=== PATIENT | female | born 1955 | race Caucasian/White ===

== ENCOUNTER → 2017-04-25 | Outpatient (CLI) | payer BC ==
[~2017-04-25] MED LIST: B-CO1CAP3 PO; CHOL400T; MAGN400T6 PO; MISCCAP80 PO; OMEG10007 PO
--- NOTE | 2017-04-26 15:11 | MAMMOGRAPHY REPORT ---
BILATERAL DIGITAL SCREENING MAMMOGRAM TOMOSYNTHESIS WITH CAD: 04/25/2017 CLINICAL HISTORY: Routine screening. Patient has no complaints. TECHNIQUE: Bilateral breast tomosynthesis in addition to standard 2D mammography was performed. Curre nt study was also evaluated with a Computer Aided Detection (CAD) system. COMPARISON: Comparison is made to exams dated: 03/30/2016 mammogram, 03/12/2015 mammogram, 03/04/2015 m ammogram, 03/01/2014 mammogram, 02/26/2013 mammogram, and 04/23/2010 mammogram - [facility] nter. BREAST COMPOSITION: The tissue of both breasts is extremely dense, which lowers the sensitivity of m ammography. FINDINGS: There is a possible area of architectural distortion in the 12:00 middle to posterior left breast, for which additional spot compression tomosynthesis views and possibly ultrasound are recomm ended. There are scattered benign rim calcifications bilaterally. No other suspicious mass, architectural di stortion or cluster of microcalcifications is seen. IMPRESSION: ACR BI-RADS CATEGORY 0: INCOMPLETE EVALUATION: NEED ADDITIONAL IMAGING EVALUATION The possible area of architectural distortion in the 12:00 left breast needs additional evaluation. The patient will be called to schedule an appointment. Approximately 10% of breast cancers are not detected with mammography. A negative mammographic report should not delay biopsy if a clinically suggestive mass is present. Maria Luisa Zamudio M.D. ay/:04/25/2017 15:53:19 Gear Shaper: Whitley BALDERRAMA(R)(Valeria)(BD), [facility] letter sent: Addl Imaging 0 BI-RADS Code: ACR BI-RADS Category 0: Incomplete Evaluation: Need Additional Imaging Evaluation
== END | disposition home or self-care (01) ==
LOC: C.MAMM 09:07
PROVIDERS: ATTEND Family Medicine
DX: Z12.31 Encounter for screening mammogram for malignant neoplasm of breast (principal); R92.8 Other abnormal and inconclusive findings on diagnostic imaging of breast

== ENCOUNTER → 2017-04-27 | Outpatient (CLI) | payer BC ==
--- NOTE | 2017-04-27 17:16 | MAMMOGRAPHY REPORT ---
UNILATERAL LEFT DIGITAL DIAGNOSTIC MAMMOGRAM TOMOSYNTHESIS AND TARGETED LEFT ULTRASOUND: 04/27/2017 CLINICAL HISTORY: Callback from screening mammogram for possible architectural distortion in the left breast. TECHNIQUE: Breast tomosynthesis in addition to standard 2D mammography was performed. Spot compress ion left CC and MLO 2-D and tomosynthesis images were obtained. COMPARISON: Comparison is made to exams dated: 04/27/2017 ultrasound, 04/25/2017 mammogram, 03/30/2016 mammogram, 03/12/2015 ultrasound, 03/12/2015 mammogram, and 03/04/2015 mammogram - [facility]. BREAST COMPOSITION: The tissue of the left breast is extremely dense, which lowers the sensitivity o f mammography. FINDINGS: Spot compression views of the left breast demonstrate a persistent subtle area of architec tural distortion within the left breast at approximately 11:30 to 12:00, only seen on the tomosynthes is images (slice 40/73 on the MLO view and slice 34/73 on the cc view). Targeted ultrasound was performed of the left 11 to 12:00 breast in the region of the architectural d istortion seen mammographically. A few circumscribed round/oval anechoic masses were seen, consisten t with cysts, the largest in the left breast at 11:00, 3 cm from the nipple, measuring 8 x 4 7 mm. A n area of shadowing is noted in the left 12:00 periareolar breast, however, there is significant shad owing of normal dense tissue throughout other regions of the breast on ultrasound which decreases the sensitivity of the exam. Therefore, this shadowing at 12:00 could simply represent normal shadowing of dense tissue. IMPRESSION: ACR BI-RADS CATEGORY 4: SUSPICIOUS, TARGETED ULTRASOUND ACR BI-RADS CATEGORY 4: SUSPICIO US Persistent focal area of architectural distortion in the left 11:30 to 12:00 breast mammographically, without a clear sonographic correlate evident. The architectural distortion is indeterminant, with differential including radial scar or malignancy, and tissue sampling is recommended. Recommend nico synthesis-guided biopsy for further evaluation. The patient has been verbally notified of the results. A stereotactic table with tomosynthesis biops y capability is being installed in our breast center in 2 weeks, and the patient will be called to sc hedule the biopsy. Approximately 10% of breast cancers are not detected with mammography. A negative mammographic report should not delay biopsy if a clinically suggestive mass is present. Roxanne Moulton M.D. ah/:04/27/2017 15:31:26 Telecommunications Analyst: Radha AVALOS)(Valeria), [facility] letter sent: Abnormal 4/5 BI-RADS Code: ACR BI-RADS Category 4: Suspicious Ultrasound BI-RADS: ACR BI-RADS Category 4: Suspici ous
== END | disposition home or self-care (01) ==
LOC: C.MAMM 13:25
PROVIDERS: ATTEND Family Medicine
DX: N64.89 Other specified disorders of breast (principal)

== ENCOUNTER → 2017-05-18 | Outpatient (CLI) | payer BC ==
--- NOTE | 2017-05-18 13:50 | Discharge Instructions ---
Discharge Instructions Procedure Procedure Date: May 18, 2017. Reason for visit: Left Distortion. Discharge Discharge Date: May 18, 2017. Discharge Diagnosis: status post breast biopsy Instructions Activity Recommendations: Additional Limitations (see below) Return to School/Work: no limitations Recommended Home Diet: No Limitations Provider Instructions: ACTIVITY RECOMMENDATIONS: * No lifting, pushing, pulling or exercising the affected side for three days. RETURN TO SCHOOL/WORK: * You may return to work/school after the procedure, but do not perform any strenuous activities for 24 to 48 hours. MEDICATIONS: * Tylenol (two 325 mg) every four to six hours if needed for mild pain (if not allergic to Tylenol). DIET: * Resume previous diet. SPECIAL CARE INSTRUCTIONS: * Keep biopsy site dry for 24 hours. May shower after 24 hours, but do not soak (bathe) incision. * May remove Tegaderm (plastic patch) tomorrow AFTER showering. * Leave the steri-strips on for one week. Allow the steri-strips to fall off by themselves. If not off after one week, you may remove them. You may place a Bandaid crosswise over the strips, if desired. * Apply ice 10 minutes on and 10 minutes off as needed. * Wear a bra at bedtime to sleep more comfortably for 2-3 days. * Your referring physician should have the results after approximately 5 to 7 business days. * Call for unusual bleeding, fever, drainage, etc or if you have any questions call during normal business hours or after hours call Dr Moulton, [phone]. FOLLOW UP VISIT: Follow-up with Referring Physician as scheduled. Allergies Coded Allergies: Penicillins (Verified Allergy, Unknown, ., 08/12/16) Sulfa Antibiotics (Verified Allergy, Unknown, ., 08/12/16) Vikas Espinosa Recommendations: Call your doctor if: * Temperature above 101 degrees * Pain not relieved by pain medicine ordered * There is increased drainage or redness from any incision * You have any unanswered questions or concerns. Your Doctors Instructions noted above were prepared by provider Roxanne Moulton. Patient Signature Section: Patient Instructions Signature Page Estelita Chow Patient (or Guardian) Signature/Date: I have read and understand the instructions given to me by my caregivers. Caregiver/RN/Doctor Signature/Date: The above-named patient and/or guardian has received patient instructions on this date. + Original Patient Signature Page (only) stays with chart. Please make copy for patient.
--- NOTE | 2017-05-19 13:52 | MAMMOGRAPHY REPORT ---
STEREOTACTIC GUIDED BIOPSY LEFT BREAST: 05/18/2017 CLINICAL HISTORY: Architectural distortion in the left 11:30 to 12:00 breast. PATIENT CONSENT: The procedure, risks, benefits, and alternatives of stereotactic biopsy with clip pl acement were discussed with the patient, and verbal and written consent was obtained. A timeout was performed immediately prior to the procedure. PROCEDURE DESCRIPTION: With stereotactic tomosynthesis guidance, aseptic technique, and lidocaine as a local anesthetic (1% lidocaine to anesthetize the skin and 1% lidocaine with epinephrine to anesthe tize the deeper tissues), the architectural distortion in the left 11:30 to 12:00 breast was sampled multiple times with a 9-gauge vacuum-assisted biopsy needle ([employer]). The path of approach was medial. A metallic marker clip was placed at the biopsy site. This was confirmed on postprocedure ma mmograms. Direct pressure was applied at the biopsy site and hemostasis was readily achieved. The p atient tolerated the procedure without complication. She was given wound care instructions. COMPARISON: Comparison is made to exams dated: 04/27/2017 mammogram, 04/27/2017 ultrasound, 04/25/2017 mammogram, 03/30/2016 mammogram, 03/12/2015 ultrasound, and 03/12/2015 mammogram - [facility]. IMPRESSION: STEREOTACTIC GUIDED BIOPSY Tomosynthesis stereotactic guided biopsy of focal architectural distortion in the left 11:30 to 12:00 breast, with clip placement. The patient will receive pathology results from her referring provider . Roxanne Moulton M.D. /:05/18/2017 14:25:57 Client Analyst: Stella AVALOS)(Valeria), [facility]
--- NOTE | 2017-05-19 13:52 | MAMMOGRAPHY REPORT ---
UNILATERAL LEFT DIGITAL DIAGNOSTIC MAMMOGRAM TOMOSYNTHESIS: 05/18/2017 CLINICAL HISTORY: Status post left breast biopsy using stereotactic and tomosynthesis guidance. TECHNIQUE: Breast tomosynthesis in addition to standard 2D mammography was performed. Left CC and M L tomosynthesis images including C views were obtained postprocedure. COMPARISON: Comparison is made to exams dated: 04/27/2017 mammogram, 04/27/2017 ultrasound, 04/25/2017 mammogram, 03/30/2016 mammogram, 03/12/2015 ultrasound, and 03/12/2015 mammogram - [facility]. BREAST COMPOSITION: The tissue of the left breast is extremely dense, which lowers the sensitivity o f mammography. FINDINGS: A new biopsy marker clip and expected postbiopsy changes are seen within the left 12:00 br east in the region of the biopsied architectural distortion. IMPRESSION: POST PROCEDURE IMAGING FOR MARKER PLACEMENT New biopsy marker clip status post stereotactic biopsy of architectural distortion in the left 11:30 to 12:00 breast. Pathology results are pending. Approximately 10% of breast cancers are not detected with mammography. A negative mammographic report should not delay biopsy if a clinically suggestive mass is present. Roxanne Moulton M.D. ah/:05/18/2017 14:30:12 Coffee Weigher: Stella BALDERRAMA(R)(M), [facility] BI-RADS Code: Post Procedure Imaging For Marker Placement
== END | disposition home or self-care (01) ==
LOC: C.MAMM 12:53
PROVIDERS: ATTEND Family Medicine
DX: R92.0 Mammographic microcalcification found on diagnostic imaging of breast (principal)

== ENCOUNTER 2024-03-23 12:02 | Observation (INO) ==
--- NOTE | 2024-03-23 12:25 | Emergency Department Note ---
History of Present Illness General Chief complaint: Chest Pain Stated complaint: heart pain Time Seen by Provider: 03/23/24 12:08 Source: patient, family ( who is at the bedside), RN notes reviewed and old records reviewed (11/01/23- Radiation oncology note ) Mode of arrival: ambulatory Limitations: no limitations History of Present Illness Maximum Pain Intensity: 4 This patient is 69-year-old female who has a history of breast cancer and had her port removed on Tuesday, comes in with chest pain started about an hour ago it is sharp in the center of her chest last about 15 minutes and went away and then it came back and now it is almost completely gone again. She may have had a little dyspnea on exertion. She said her left arm felt a little numb with it. No nausea or vomiting. No fall or trauma or injury no lower extremity pain or swelling she did have her port removed on Tuesday of the left side of the chest she has some mild soreness around the site but says it is not the same pain that she had earlier and no redness or pus drainage. She has a history of PVCs and PACs but no history of cardiac disease Home Medications Medication Instructions Recorded Confirmed Type Fish Oil ([place]-3) 1 cap PO DAILY #0 caps 08/12/16 11/01/23 History PROBIOTIC PRODUCT (PROBIOTIC) 1 cap PO DAILY ##0 08/12/16 11/01/23 History aspirin 81 mg tablet,delayed 81 mg PO DAILY 09/06/22 11/01/23 History release lorazepam 0.5 mg tablet 0.5 mg PO DAILY PRN 09/06/22 11/01/23 History metoprolol succinate 25 mg 25 mg PO DAILY 09/06/22 11/01/23 History tablet,extended release 24 hr acetaminophen 500 mg tablet 1,000 mg PO Q6H PRN 05/10/23 11/01/23 History (Tylenol Extra Strength) ibuprofen 600 mg tablet 600 mg PO QID PRN 05/10/23 11/01/23 History cholecalciferol (vitamin D3) 10 10 mcg PO DAILY 06/20/23 11/01/23 History mcg (400 unit) capsule evolocumab 140 mg/mL subcutaneous 140 mg subcut .Q2 weeks 06/20/23 11/01/23 History pen injector (Viridiana Umaña) loratadine 10 mg tablet (Allergy 10 mg PO DAILY PRN 06/20/23 11/01/23 History Relief (loratadine)) diphenoxylate-atropine 2.5 1 tab PO DAILY PRN 11/01/23 11/01/23 History mg-0.025 mg tablet (Lomotil) ondansetron HCl 4 mg tablet 4 mg PO Q6H 11/01/23 11/01/23 History tamoxifen 20 mg tablet 10 mg PO DAILY 11/01/23 11/01/23 History venlafaxine 25 mg tablet 25 mg PO DAILY 11/01/23 11/01/23 History Allergies Allergy/AdvReac Type Severity Reaction Status Date / Time Penicillins Allergy Unknown . Verified 11/01/23 15:29 Sulfa (Sulfonamide Allergy Unknown . Verified 11/01/23 15:29 Antibiotics) ciprofloxacin [From Cipro] AdvReac Severe TENDONITIS Verified 11/01/23 15:29 Zihxedm-KTR-NlD Reductase AdvReac Severe MUSCLE Verified 11/01/23 15:29 Inhibitor CRAMPS [Ffhuhhs-Ide-Ndi Reductase Inhibitor] nitrofurantoin AdvReac Unknown Unverified 11/01/23 15:29 [From Macrobid] rosuvastatin [From Crestor] AdvReac Unknown Unverified 11/01/23 15:29 hans chemical Allergy Severe Anaphylaxis Uncoded 11/01/23 15:29 tape AdvReac Unknown Uncoded 11/01/23 15:29 zetia AdvReac Unknown Uncoded 11/01/23 15:29 Past Med/Surg History Problem List (Updated 03/23/24 @ 12:25 by Gigi Mata MD) Chest pain (Acute) Malignant neoplasm of central portion of right breast in female, estrogen receptor positive (Chronic) Recurrent UTI Right flank pain 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 Lung cyst Lobular carcinoma in situ of breast Hyperlipidemia Finger fracture, right 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 Dyspareunia in female DCIS (ductal carcinoma in situ) CAD in [place] artery Aortic calcification UTI (urinary tract infection) Left knee DJD Left knee pain Abdominal pain (Acute) Surgical History S/P thoracotomy with pleurodesis right lung 1994 History of bladder surgery ureter sling 2008 Status post right breast lumpectomy bladder sling Hx of hysterectomy 2010 Hx of hand surgery Hx of appendectomy History of colon resection 2008 H/O oophorectomy Family History Grandmother (Paternal) Breast cancer Father Myocardial infarction Brother Hypertension Drug addiction Other Heart disease Social History Smoking Status: Former smoker packs per day: 1; Hx Alcohol Use: Yes Preferred Language: Tongan Communication Ability: Effective Visual Impairment: Partially Limited Hearing Ability: Normal Beliefs That Will Affect Care: None Current Living Situation: Spouse current occupational status: retired Feels Safe at Home: Yes Diet: regular during the past year weight has: remained stable Assistive Devices: Glasses Immunizations: Family historyfather of an [place] in his 60s. Brother of a stroke in his 50s however she said that he was an addict/substance abuser. Mother had aortic valve replacement Review of Systems A total of 10 systems reviewed and were otherwise negative Physical Exam Vital Signs Vital Signs - 24 hr 03/23/24 12:04 03/23/24 12:41 03/23/24 12:45 Temperature 36.6 C Temperature Source Temporal Artery Scan Pulse Rate 84 65 Pulse Rate [Finger] Pulse Rhythm Regular Pulse Strength Normal Respiratory Rate 18 Respiratory Effort / Characteristics Non-Labored Spontaneous Respiratory Depth Normal Respiratory Pattern Regular Blood Pressure 167/67 H Blood Pressure [Right Arm] Blood Pressure Mean 100 Blood Pressure Mean [Right Arm] Blood Pressure Position Sitting Pulse Oximetry 97 Oxygen Delivery Method Room Air Room Air Sepsis Recent Fever Within 48 Hours No Sepsis New/Unexplained Change in Mental Status No Sepsis Action Taken by Nursing No Action Required 03/23/24 13:52 Temperature Temperature Source Pulse Rate Pulse Rate [Finger] 66 Pulse Rhythm Pulse Strength Respiratory Rate 15 Respiratory Effort / Characteristics Non-Labored Respiratory Depth Normal Respiratory Pattern Blood Pressure Blood Pressure [Right Arm] 120/62 Blood Pressure Mean Blood Pressure Mean [Right Arm] 81 Blood Pressure Position Pulse Oximetry 96 Oxygen Delivery Method Sepsis Recent Fever Within 48 Hours Sepsis New/Unexplained Change in Mental Status Sepsis Action Taken by Nursing General: Well developed well nourished older female who appears in no acute distress, breathing comfortably on room air. Normal speech HEENT: Normal cephalic atraumatic. Pupils are equal round and reactive to light. Extraocular movements are intact. Oropharynx is pink with moist mucous membranes. No swelling of the mouth lips or tongue. Neck: Supple with a midline trachea. No meningeal signs or stiffness, no JVD or bruits. No Stridor. Chest: Clear to auscultation bilaterally. No wheezes or rhonchi. No increased work of breathing. Well-healing incision in the left chest. No redness pus or drainage mildly tender. Heart: Regular rate and rhythm without murmurs or gallops. Abdomen: Soft nontender, nondistended without rebound guarding or rigidity. Extremities: No cyanosis clubbing or edema. No calf tenderness or assymetry Spine/Back. Non tender to palpation. No CVA tenderness Skin: Good turgor without rashes. Neurologic exam: Cranial nerves two through 12 are intact. Motor and sensation are intact and symmetrical throughout. Course Administered Medications Discontinued Medications Aspirin (Aspirin 81 Mg Chew) 324 mg PO NOW STA Stop: 03/23/24 12:20 Last Admin: 03/23/24 12:43 Dose: 324 mg Documented By: JANESSA Medical Decision Making Differential Diagnosis Acute coronary syndrome, arrhythmia, PE, pneumothorax, postop complication, wound infection, musculoskeletal, GI Medical Records Attestation: I reviewed the patient's medical records. Home Medications Current Medication List: was personally reviewed by me Laboratory Data Attestation: I reviewed the patient's lab results. 03/23/24 12:35 03/23/24 12:35 Lab Results 03/23/24 Range/Units 12:35 WBC 5.84 (4.8-10.8) K/ul RBC 4.07 L (4.20-5.40) M/uL Hgb 13.1 (12.0-16.0) g/dl Hct 38.1 (37.0-47.0) % MCV 93.6 (80.0-100.0) fL MCH 32.2 (25.0-34.0) pg MCHC 34.4 (32.0-36.0) g/dL RDW Std Deviation 42.9 (36.4-46.3) fL RDW Coeff of Aikko 12.5 (11.5-14.5) % Plt Count 205 (130-400) K/uL MPV 8.8 L (9.4-12.4) fL Immature Gran % (Auto) 0.2 % Neut % (Auto) 63.8 % Lymph % (Auto) 24.7 % Norton % (Auto) 9.4 % Eos % (Auto) 1.7 % Baso % (Auto) 0.2 % Neut # (Auto) 3.73 (1.40-6.50) K/uL Lymph # (Auto) 1.44 (1.20-3.40) K/uL Norton # (Auto) 0.55 (0.11-0.59) K/uL Eos # (Auto) 0.10 (0.00-0.50) K/uL Baso # (Auto) 0.01 (0.00-0.20) K/uL Immature Gran # (Auto) 0.01 (0.01-0.20) K/uL D-Dimer 500 (0-500) ug/L FEU Sodium 138 (136-145) mmol/L Potassium 4.0 (3.5-5.1) mmol/L Chloride 102 (98-107) mmol/L Carbon Dioxide 29 (21-32) mmol/L Anion Gap 7 (3-11) BUN 15 (6-23) mg/dl Creatinine 0.67 (0.6-1.2) mg/dl Est Cr Clr Drug Dosing 73.1 ml/min Est GFR ( Amer) 103.2 ml/min Est GFR (Non-Af Amer) 89.1 ml/min BUN/Creatinine Ratio 22.4 H (10-20) Glucose 110 H (70-99(Fasting)) mg/dl Calcium 9.6 (8.6-10.3) mg/dl Total Bilirubin 0.4 (0.2-1.0) mg/dl AST 21 (13-39) U/L ALT 21 (7-52) U/L Alkaline Phosphatase 50 (34-104) U/L Troponin I High Sens 3.3 (0-14) pg/ml Total Protein 7.0 (6.0-8.3) gm/dl Albumin 4.4 (3.4-5.0) gm/dl Globulin 2.6 (2.5-4.0) gm/dl Albumin/Globulin Ratio 1.7 (0.9-2) Lipase 39 (11-82) U/L Imaging Data Attestation: I personally reviewed and interpreted this imaging study as follows: My Impression: Chest x-rayno acute infiltrate, failure, pneumothorax seen Radiologist's Impression: Chest X-Ray 03/23/24 12:18 XR chest 1V portable CLINICAL HISTORY: Chest pain, nonspecific TECHNIQUE: Single frontal radiograph of the chest was obtained. Comparison: None available at the time of this dictation. FINDINGS: No lines and tubes are seen. Cardiomegaly is noted. The aortic arch is calcified. The lungs are clear. No evidence of pleural effusion or pneumothorax. IMPRESSION: No acute chest disease. ACT 112: Negative or not required by law. Electronically signed by: Raffaele Aldana M.D. 03/23/2024 12:25 PM ECG Data Attestation: I personally reviewed and interpreted this ECG as follows: Indication: + chest pain Rate (beats per minute): 66 Rhythm: + normal sinus ECG Intervals/blocks: + Normal QRS, + Normal QT and + Normal AK ECG Carnation: + Normal ECG ST segments: + Normal ST segments ECG Findings: no PACs or no PVCs Comparison ECG Date: from (01/07/1998) Change: no significant change Additional Comments: EKG #2: Normal sinus rhythm rate 65 no acute ischemic changes or ectopy no change compared EKG #1 MDM Narrative This patient comes in described above she had episode chest pain this morning she is feeling a lot better at present. She is stable vital signs. IV access was established. initial EKG shows no ischemic changes or ectopy. Chest x-ray and blood work was ordered. She did have her port out earlier this week but the wound appears to be healing well. Chest x-ray was remarkable shows no congestive heart failure, pneumonia, pneumothorax. EKG shows no ischemic changes or ectopy. I did a second EKG while she was here and shows no change compared to #1. Her D-dimer was within normal limits and a low pretest probability makes PE highly unlikely. Troponin was negative. She has no significant electrolyte or metabolic abnormalities. She does have several cardiac risk factors. She also tells me she had a cardiac CT several years ago and had a very high calcium score. I do think she should be admitted/observed to evaluate her for acute coronary syndrome. She has remained pain-free. I discussed the case with the patient and her and she agrees I consulted the [facility] hospitalist to see her in the ER for admission/observation for her chest pain. Continuous cardiac monitoring: Orders placed in EMR for continuous cardiac monitoring: Upon my evaluation patient noted to be in normal sinus rhythm rate of 65 Impression & Plan Chest pain, History of breast cancer, History of removal of Port-a-Cath, Family history of coronary artery disease Discharge Plan Visit Data Chief Complaint: Chest Pain Stated Complaint: heart pain ED Provider: Gigi Mata Discharge Problem: Chest pain, History of breast cancer, History of removal of Port-a-Cath, Family history of coronary artery disease Forms Stand Alone Forms: My [facility] Prescriptions Prescriptions: No Action ibuprofen 600 mg tablet 600 mg PO QID PRN cholecalciferol (vitamin D3) 10 mcg (400 unit) capsule 10 mcg PO DAILY tamoxifen 20 mg tablet 10 mg PO DAILY diphenoxylate-atropine [Lomotil] 2.5-0.025 mg tablet 1 tab PO DAILY PRN venlafaxine 25 mg tablet 25 mg PO DAILY ondansetron HCl 4 mg tablet 4 mg PO Q6H Fish Oil ([place]-3) 1 EA capsule 1 cap PO DAILY Qty: 0 PROBIOTIC PRODUCT (PROBIOTIC) 1 CAP capsule 1 cap PO DAILY Qty: 0 aspirin 81 mg tablet,delayed release (DR/EC) 81 mg PO DAILY metoprolol succinate 25 mg tablet extended release 24 hr 25 mg PO DAILY lorazepam 0.5 mg tablet 0.5 mg PO DAILY PRN acetaminophen [Tylenol Extra Strength] 500 mg tablet 1,000 mg PO Q6H PRN Repatha SureClick 140 mg/mL pen injector 140 mg subcut .Q2 weeks loratadine [Allergy Relief (loratadine)] 10 mg tablet 10 mg PO DAILY PRN Referrals Referrals: Naomi Marcus DO [Primary Care Provider] - Discharge Problem: Chest pain Qualifiers: Chest pain type: precordial pain Qualified Code(s): R07.2 - Precordial pain
[2024-03-23] MEDS: ASPIRIN 81 MG CHEW PO STA (12:43)
[2024-03-23 13:02] LABS: Basophils # (auto) 0.01 K/uL (0.00-0.20); Basophils % (auto) 0.2 %; Eosinophils % (auto) 1.7 %; Hematocrit (blood only) 38.1 % (37.0-47.0); Hemoglobin 13.1 g/dl (12.0-16.0); Immature Granulocytes # (auto) 0.01 K/uL (0.01-0.20); Immature Granulocytes % (auto) 0.2 %; Lymphocytes # (auto) 1.44 K/uL (1.20-3.40); Lymphocytes % (auto) 24.7 %; Mean Corpuscular Hemoglobin 32.2 pg (25.0-34.0); Mean Corpuscular Hgb Conc 34.4 g/dL (32.0-36.0); Mean Corpuscular Volume 93.6 fL (80.0-100.0); Mean Platelet Volume 8.8 fL (9.4-12.4); Monocytes # (auto) 0.55 K/uL (0.11-0.59); Monocytes % (auto) 9.4 %; Neutrophils # (auto) 3.73 K/uL (1.40-6.50); Neutrophils % (auto) 63.8 %; Platelet Count 205 K/uL (130-400); RDW Coefficient of Variation 12.5 % (11.5-14.5); RDW Standard Deviation 42.9 fL (36.4-46.3); Red Blood Count 4.07 M/uL (4.20-5.40); White Blood Count 5.84 K/ul (4.8-10.8)
[2024-03-23 13:24] LABS: Albumin Globulin Ratio 1.7 (0.9-2); Albumin Level 4.4 gm/dl (3.4-5.0); BUN Creatinine Ratio 22.4 (10-20); Bilirubin,Total 0.4 mg/dl (0.2-1.0); Calcium 9.6 mg/dl (8.6-10.3); Creatinine Clr Calc Pharmacy 73.1 ml/min; Est GFR (African American) 103.2 ml/min; Est GFR (Non-African American) 89.1 ml/min; Globulin 2.6 gm/dl (2.5-4.0)
[2024-03-23 13:26] LABS: Troponin I High Sensitivity 3.3 pg/ml (0-14)
[2024-03-23 13:27] LABS: D Dimer 500 ug/L FEU (0-500)
--- NOTE | 2024-03-23 14:00 | History & Physical Report ---
Date of Service March 23, 2024 Assessment & Plan (1) Chest pain: Plan: Admit to med telemetry on pulse oximetry Currently hemodynamically stable, stable on room air, but with recurrent episode of substernal chest discomfort with radiation since 10:30 AM raina manrique Initial high-sensitivity troponin is within normal limits, 2-hour repeat was just collected 2 ECGs obtained are sinus rhythm without acute ST segment or T wave changes Patient does have a significant family history of coronary artery disease and is high risk for PE with her recent treatment for breast cancer Cannot rule out possible recent vascular injury after her Mediport removal at the beginning of this week Status post 124 mg aspirin in the ED, continue home statin and daily 81 mg aspirin for now Will give 40 mg IV pantoprazole now to see if symptoms are related to possible reflux Will continue monitor on telemetry and obtain stat CTA of the chest with IV contrast Will continue to monitor serial troponin Will obtain TTE as she treatment for her breast cancer which increases her risk for cardiomyopathy If workup is stable today, could consider stress test tomorrow Will keep n.p.o. except meds until CTA chest results are back SQ Lovenox for DVT prophylaxis AM CBC, CMP, mag, PT/INR (2) Malignant neoplasm of central portion of right breast in female, estrogen receptor positive: Plan: Patient recently completed her courses of chemotherapy, radiation therapy, and immunotherapy Had her Mediport removed on 03/19/2024 Follow-up CT of the chest results Follow-up with heme-onc and rad onc outpatient after discharge (3) Hyperlipidemia: Plan: Continued atorvastatin and aspirin Plan The patient discussed with Dr. 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 She was initially noted to be hypertensive on arrival 167/67 but was otherwise stable. Labs were significant 110 and initial high-sensitivity within normal limits. ECG shows normal sinus rhythm without acute ST segment or T wave changes. Chest x-ray was read as negative for acute findings. We are asked to admit the patient for ongoing cardiac workup as she has not had a stress test in many years. Prior to admission the patient was given 324 mg p.o. aspirin. Patient was seen in bed in no acute distress at time of exam with her bedside, history obtained from both. The patient explains that she just had her Mediport in the left upper chest removed on 03/19/2024. Starting this a.m. around 1030 she started to notice a substernal chest discomfort which she describes as a pressure sensation with radiation to the back. Symptoms last for approximately 15 minutes at a time and have been recurrent since 1030. She has also noticed some intermittent numbness/tingling in the left upper extremity symptoms began. Denies recent fever, chills, cough, vomiting, abdominal pain, dysuria/hematuria, diarrhea, lower extremity swelling, and recent trauma. Denies a significant past medical history herself but her father did at the age of 65 from a large VT. When asked, she may have some chest discomfort when taking deep breaths. She also notes mild nausea during my exam discomfort which is currently a 3 out of 10. When asked, she has a hard time determining if she has had increased dyspnea on exertion or chest discomfort with her normal activities as she states she is still recovering from her recent lemus with cancer and is generally weak from this. We discussed CODE STATUS, she is a full code and want her and daughter to make medical decisions for her if she cannot make them herself. Please refer to Dr. Ordonez' attestation for any changes to treatment plan Allergies Allergy/AdvReac Type Severity Reaction Status Date / Time Penicillins Allergy Unknown . Verified 03/23/24 14:38 Sulfa (Sulfonamide Allergy Unknown . Verified 03/23/24 14:38 Antibiotics) ciprofloxacin [From Cipro] AdvReac Severe TENDONITIS Verified 03/23/24 14:38 Bgvjobl-MYX-TvY Reductase AdvReac Severe MUSCLE Verified 03/23/24 14:38 Inhibitor CRAMPS [Pvlfwvw-Vpp-Tpr Reductase Inhibitor] nitrofurantoin AdvReac Unknown Unknown Unverified 03/23/24 14:38 [From Macrobid] rosuvastatin [From Crestor] AdvReac Unknown Unknown Unverified 03/23/24 14:38 hans chemical Allergy Severe Anaphylaxis Uncoded 03/23/24 14:38 tape AdvReac Unknown Unknown Uncoded 03/23/24 14:38 zetia AdvReac Unknown Unknown Uncoded 03/23/24 14:38 Home Medications Medication Instructions Recorded Confirmed Type PROBIOTIC PRODUCT (PROBIOTIC) 1 cap PO DAILY ##0 08/12/16 03/23/24 History aspirin 81 mg tablet,delayed 81 mg PO Q OTHER DAY 09/06/22 03/23/24 History release lorazepam 0.5 mg tablet 0.5 mg PO DAILY PRN Anxiety 09/06/22 03/23/24 History metoprolol succinate 25 mg 12.5 mg PO QPM 09/06/22 03/23/24 History tablet,extended release 24 hr acetaminophen 500 mg tablet 1,000 mg PO Q6H PRN Pain 05/10/23 03/23/24 History (Tylenol Extra Strength) cholecalciferol (vitamin D3) 10 10 mcg PO QPM 06/20/23 03/23/24 History mcg (400 unit) capsule evolocumab 140 mg/mL subcutaneous 140 mg subcut .Q2 weeks 06/20/23 03/23/24 History pen injector (Repatha SureClick) loratadine 10 mg tablet (Allergy 10 mg PO DAILY PRN allergies 06/20/23 03/23/24 History Relief (loratadine)) diphenoxylate-atropine 2.5 1 tab PO DAILY PRN Diarrhea 11/01/23 03/23/24 History mg-0.025 mg tablet (Lomotil) ondansetron HCl 4 mg tablet 4 mg PO Q6H 11/01/23 03/23/24 History venlafaxine 25 mg tablet 25 mg PO DAILY 11/01/23 03/23/24 History ibuprofen 200 mg tablet 400 mg PO Q6H PRN Pain 03/23/24 03/23/24 History omega-3 fatty acids 1,000 mg 1,000 mg PO QPM 03/23/24 03/23/24 History capsule tamoxifen 10 mg tablet 10 mg PO Q OTHER DAY 03/23/24 03/23/24 History tamoxifen 10 mg tablet 20 mg PO Q OTHER DAY 03/23/24 03/23/24 History Past Med/Surg History Problem List (Updated 03/23/24 @ 12:25 by Gigi Mata MD) Chest pain (Acute) Malignant neoplasm of central portion of right breast in female, estrogen receptor positive (Chronic) Recurrent UTI Right flank pain 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 Lung cyst Lobular carcinoma in situ of breast Hyperlipidemia Finger fracture, right 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 Dyspareunia in female DCIS (ductal carcinoma in situ) CAD in [place] artery Aortic calcification UTI (urinary tract infection) Left knee DJD Left knee pain Abdominal pain (Acute) Surgical History S/P thoracotomy with pleurodesis right lung 1994 History of bladder surgery ureter sling 2008 Status post right breast lumpectomy bladder sling Hx of hysterectomy 2010 Hx of hand surgery Hx of appendectomy History of colon resection 2008 H/O oophorectomy Family History Grandmother (Paternal) Breast cancer Father Myocardial infarction Brother Hypertension Drug addiction Other Heart disease Social History Smoking Status: Former smoker packs per day: 1; Hx Alcohol Use: Yes Preferred Language: Arabic Communication Ability: Effective Visual Impairment: Partially Limited Hearing Ability: Normal Beliefs That Will Affect Care: None Current Living Situation: Spouse current occupational status: retired Feels Safe at Home: Yes Diet: regular during the past year weight has: remained stable Assistive Devices: Glasses Physical Exam Physical Exam: Physical Exam: General: In no acute distress, stated age, well-nourished, non-toxic appearing HEENT: Normocephalic, atraumatic, no scleral icterus, pupils around round, symmetrical, and reactive to light, moist mucus membranes, trachea midline, no thyromegaly Chest/Pulm: No respiratory distress, symmetrical chest expansion, clear breath sounds throughout Cardiac: RRR, no murmurs noted Abdomen: Negative for ascites and bruising, normoactive bowel sounds, soft, non-tender to palpation throughout Musculoskeletal: Symmetrical and without signs of acute trauma, upper and lower extremities with full ROM, no atrophy, spasticity, or flaccidity Extremities: Radial, dorsalis pedis, and posterior tibial pulses are intact and symmetrical, no edema noted in the BL LE's Skin: Recently removed Mediport site appears intact and clean without signs of infection Neuro: Alert and oriented to person, place, month, year, and president, no focal defects, no tremors noted Psych: No acute distress, calm and cooperative during the exam Results & Data Results & Data Vital Signs (Past 12 Hours) Vital Signs Temp Pulse Resp BP Pulse Ox O2 Del Method 03/23/24 12:45 Room Air 03/23/24 12:41 65 03/23/24 12:04 36.6 C 84 18 167/67 H 97 Room Air Laboratory Results Abnormal lab results 03/23/24 Range/Units 12:35 RBC 4.07 L (4.20-5.40) M/uL MPV 8.8 L (9.4-12.4) fL BUN/Creatinine Ratio 22.4 H (10-20) Glucose 110 H (70-99(Fasting)) mg/dl Diagnostic Findings Chest X-Ray 03/23/24 12:18 XR chest 1V portable CLINICAL HISTORY: Chest pain, nonspecific TECHNIQUE: Single frontal radiograph of the chest was obtained. Comparison: None available at the time of this dictation. FINDINGS: No lines and tubes are seen. Cardiomegaly is noted. The aortic arch is calcified. The lungs are clear. No evidence of pleural effusion or pneumothorax. IMPRESSION: No acute chest disease. ACT 112: Negative or not required by law. Electronically signed by: Raffaele Aldana M.D. 03/23/2024 12:25 PM ECG Additional Comments: Normal sinus rhythm without acute ST segment or T wave changes Code Status & VTE Plan Code Status Full code VTE Prophylaxis Plan VTE Prophylaxis will be ordered: Yes Supervising Physician Co-Signing Physician Notes I have personally seen, evaluated and examined the patient. I have also personally discussed the management of the patient with the resident physician/KENDRA and I agree with the exam findings documented in the history and physical examination and the documented assessment and plan unless otherwise stated below. Brief Exam: In general very pleasant 69-year-old female is alert and oriented x 3 at the time my exam she is accompanied by her at the time my examination. HEENT: Normocephalic atraumatic. Heart: Regular rate and rhythm I do not appreciate murmur or ectopy or rub. Left upper chest wall postsurgical wound noted where port was removed. The left upper chest wall postsurgical wound noted where port was removed. The surgical site is intact clean and dry with no surrounding erythema or evidence of infection. Lungs: Clear bilaterally. Abdomen:Soft, nontender, positive bowel sounds no pressure organomegaly. Extremities intact with no appreciable edema. Neurologically: She is alert and oriented x 3 with no focal deficit on exam. Assessment/plan: As described above. Stat CTA of the chest, echocardiogram, serial troponins. The patient already had full-strength aspirin in the ER. Will wait for further testing results and further recommendations will be forthcoming pending clinical course and testing results. Please refer to orders for further planning. PG Care Time/CCT Total # of Minutes Spent Total Time Spent with Patient: Total time spent is greater than 50% in coordination of care (as documented) at patient's floor/unit and/or counseling patient: Coding [place] [address] INT INP/OBS CARE 3/75MIN Patient Type Established Medical Decision Making High Complexity Diagnoses Chest pain R07.9 Malignant neoplasm of central portion of right breast in female, estrogen receptor positive C50.111; Z17.0 Hyperlipidemia E78.5
[2024-03-23 14:33] LABS: Magnesium 2.2 mg/dl (1.7-2.4)
--- NOTE | 2024-03-23 14:46 | Electrocardiogram Report ---
Test Reason : Blood Pressure : */* mmHG Vent. Rate : 66 BPM Atrial Rate : 66 BPM P-R Int : 152 ms QRS Dur : 76 ms QT Int : 396 ms P-R-T Axes : 74 53 63 degrees QTcB Int : 415 ms Normal sinus rhythm Normal ECG Confirmed by Keith Benjamin ([id number]) on 03/23/2024 2:45:39 PM Referred By: Confirmed By: Keith Benjamin
[2024-03-23] MEDS: OPTIRAY 320 125ml IV ONE (14:48)
--- OUTSIDE RECORDS SUMMARY | 2024-03-23 14:49 | External Medical Summary ---
Author Name Unknown Address Unknown Organization [facility] Subsection:[facility] [address] [place] [id number] Laboratory Report Ordering Provider Test Date Status Radha Gudino 03/19/2024 12:05:00 Final Observation Date Value Abnormality Reference (Units ) Status Prothrombin time (PT) 03/19/2024 12:20:08 12.1 12.0-14.2 (seconds) Final INR in Platelet poor plasma by Coagulation assay 03/19/2024 12:20:08 0.9 0.9-1.1 Final Suggested therapeutic range for low-intensity Coumadin therapy for venous thromboembolism is INR 2.0-3.0 (ex: atrial fibrillation, history of TIA/stroke).

For high risk patients, the suggested therapeutic range is INR 2.5-3.5 (ex: mechanical prosthetic valves). Performing Location [facility] Subsect ion [address] [place] [id number]
--- OUTSIDE RECORDS SUMMARY | 2024-03-23 14:49 | External Medical Summary | Continuity of Care Document ---
Author Name Unknown Organization [facility] Address [address] [place] [id number] Care Team Providers Care Buckle Stapler Name Role Phone Naomi Marcus Primary Care Physicia n [phone] [facility] [id number] Date(s): 03/19/24 - 03/19/24 [facility] [address] [place] [id number] [phone] Encounter Diagnosis Encounter for adjustment and management of vascular access device(Final) - Hyperlipidemia, unspecified(Final) - Anxiety disorder, unspecified(Final) - Atherosclerotic heart disease of [place] coronary artery without angina pectoris (Final) - FDC (current) use of aspirin(Final) - Other [place] [facility] (current) drug therapy(Final) - Personal history of malignant neoplasm of breast(Final) - Allergy status to other drugs, medicaments and biological substances(Final) - Discharge Disposition: Home or Self Care Attending Physician: MD Garcia Leslie B Referring Physician: MD June, Estefanía Nnamdi Allergies, Adverse Reactions, Alerts Substance Criticality Severity Reaction Reaction Severity Status penicillin Unknown Active Macrobid 1 lower abdominal pain Active simvastatin severe muscle p ain & tension Active sulfa drugs rash, hives, hallucinations Active Cipro tachycardia tendonitis Active Zetia gi upset Active Tape 2 redness Itching Active Crestor 3 muscle aches Active Allergy 4 MARCELINA CHEMICALS - anaphylaxis/headache Active 1onset after 3 doses of macrobid, was able to finish 5 d course. 2steri strips & paper tape are ok 3even with 1/2 of a 5 mg tablet once a week 4PETRO CHEMICALS Functional Status 03/19/24 Neurological Symptoms None ADLs Independent Facial Symmetry Symmetric Gait Steady Swallowing Difficulty None Level of Consciousness Neuro Alert Hallucinations Present None History of Fall in Last 3 Months Wheat N o Presence of Secondary Diagnosis Wheat No Use of Ambulatory Aid Wheat None/bedrest /nurse assist IV/Heparin Lock Fall Risk Wheat No Gait/Transferring Fall Risk Wheat Normal /bedrest/immobile Mental Status Fall Risk Wheat Oriented t o own ability Wheat Fall Risk Score 0 Wheat Fall Risk No Risk Speech Pattern Clear Immunizations Given and Recorded Vaccine Date Status Refusal Reason pneumococcal 23-valent vaccine 03/11/21 Given pneumococcal 23-valent vaccine 03/20/02 Recorded SARS-CoV-2 (COVID-19) mRNA-1273 vaccine 1 10/02/20 Recorded SARS-CoV-2 (COVID-19) mRNA-1273 vaccine 09/05/20 R ecorded zoster vaccine, inactivated 10/08/19 Given zoster vaccine, inactivated 03/22/19 Given pneumococcal 13-valent vaccine 03/22/19 Given tetanus/diphtheria/pertuss, acel (Tdap) 05/18/13 R ecorded tetanus toxoids-diphtheria, Td (Adult) 02/08/03 Re corded 1Result Comment: [facility] Medications acetaminophen Start: 03/19/24 1:19:00 PM EDT, 650 mg =, PO, q4h, PRN: pain - mild (1-3) Start Date: 03/19/24 Status: Ordered aspirin 81 mg oral capsule Start: 12/10/21 1:41:00 PM EDT, 1 cap, PO, Daily, Disp# 100 cap, Refills: 3, other Start Date: 12/10/21 Status: Ordered Ativan 0.5 mg oral tablet Start: 10/26/23 2:51:00 PM EDT, 1 tab, PO, Daily, Disp# 30 tab, Refills: 0, PRN: as needed for anxiety, Pharmacy: [id number] Start Date: 10/26/23 Status: Ordered Co Q-10 Start: 05/26/20 12:33:00 PM EDT, See Instructions, takes 2 capusles daily Start Date: 05/26/20 Status: Ordered Effexor 25 mg oral tablet Start: 12/28/23 10:48:00 AM EDT, 1 tab, PO, qhs, Disp# 30 tab, Refills: 4, [facility] Start Date: 12/28/23 Status: Ordered Emla 2.5%-2.5% topical cream Start: 03/09/23 12:34:00 PM EDT, 1 appl, topical, ONCE, Disp# 30 g, Refills: 0, Pharmacy: [facility] Start Date: 03/09/23 Status: Ordered Fish Oil Start: 02/03/10 8:51:58 AM EDT, 500 mg =, PO, Daily, Refills: 0, current medication from another provider Start Date: 02/03/10 Status: Ordered ibuprofen 600 mg oral tablet Start: 12/04/10 2:23:00 PM EDT, 1 tab, PO, qid, Disp# 50 tab, Refills: 1, PRN: as needed for pain, Pharmacy: [id number] Start Date: 12/04/10 Status: Ordered Lomotil 2.5 mg-0.025 mg oral tablet Start: 03/21/24 11:27:00 AM EDT, 1 tab, PO, bid, Disp# 30 tab, Refills: 0, PRN: as needed for loose stool, Pharmacy: [facility] Start Date: 03/21/24 Status: Ordered loperamide 2 mg oral capsule Start: 10/26/23 2:49:00 PM EDT, 1 cap, PO, q6h, Disp# 30 cap, Refills: 1, Pharmacy: [id number] Start Date: 10/26/23 Status: Ordered loratadine 10 mg oral tablet Start: 03/01/19 3:02:00 PM EDT, 1 tab, PO, q48h, PRN: as needed for allergy symptoms Start Date: 03/01/19 Status: Ordered magnesium 6 lycinate Start: 09/13/16 9:19:00 AM EST, magnesium 6 lycinate, 500 mg daily Start Date: 09/13/16 Status: Ordered Metoprolol Succinate ER 25 mg oral tablet, extended release Start: 11/28/23 8:57:00 AM EDT, See Instructions, Disp# 90 tab, Refills: 3, TAKE 1/2 TABLET BY MOUTHONCE DAILY may take an additional 1/2 tab as needed for palpitations., Pharmacy: [facility] Start Date: 11/28/23 Status: Ordered multivitamin Start: 03/07/24 10:32:00 AM EDT, 1 tab, PO, Daily Start Date: 03/07/24 Status: Ordered NAC Start: 12/13/22 2:23:00 PM EDT, NAC, See Instructions, 1 po daily Start Date: 12/13/22 Status: Ordered ondansetron 4 mg oral tablet Start: 07/25/23 12:16:00 PM EST, 1 tab, PO, bid, Disp# 50 tab, PRN: as needed for nausea/vomiting, Pharmacy: [facility] Start Date: 07/25/23 Status: Ordered Probiotic Formula Start: 09/13/16 9:20:00 AM EST, 1 cap, PO, Daily Start Date: 09/13/16 Status: Ordered Repatha SureClick 140 mg/mL subcutaneous solution Start: 05/26/21 1:59:00 PM EDT, subQ, [id number] Start Date: 05/26/21 Status: Ordered tamoxifen 10 mg oral tablet Start: 01/25/24 10:52:00 AM EDT, See Instructions, Disp# 45 tab, Refills: 4, 1 tab PO bid alternating with 1 po daily, Pharmacy: [facility] Start Date: 01/25/24 Status: Ordered Tylenol 500 mg oral tablet Start: 10/23/21 11:09:00 AM EST, 1,000 mg =, PO, q6h, PRN: as needed for pain Start Date: 10/23/21 Status: Ordered Vitamin D3 Start: 09/13/16 9:21:00 AM EST, 5,000 Int_Unit =, PO, Daily Start Date: 09/13/16 Status: Ordered Mental Status 03/19/24 Communication Barrier Present No Primary Language Macanese Problem List Condition Confirmation Course Effective Dates Status H ealth Status Informant Allergy to multiple antibiotics Confirmed Active Anxiety Confirmed Active Vaginal atrophy Confirmed Active CAD in [place] artery Confirmed Active Cough Confirmed Active Diarrhea Confirmed Active Aortic calcification 1 Confirmed Active Dyspareunia in female Confirmed Active 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 COVID-19 vaccine series completed Confirmed Active Hyperlipidemia Confirmed Active 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 Laparoscopic radical vaginal hysterectomy [LRVH] 2 Confirmed Active 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 Breast cancer Confirmed Active Aaqc-Ujhg-Vbdb syndrome Confirmed Active Need for prophylactic vaccination and inoculation against influenza Confirmed Active Right elbow pain Confirmed Active Palpitations Confirmed Active Medicare annual wellness visit, subsequent Confirmed Active Post-nasal drip Confirmed Active Resection of ascending colon, cecum and terminal ileum 3 Confirmed Active Sling procedure of bladder neck Confirmed Active SVT (supraventricular tachycardia) 4 Confirmed Active Frequent unifocal PVCs Confirmed Active 1Added per Networking Administrator [id number] 02/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 4Added per Networking Administrator [id number] 02/23/2023 Procedures Procedure Date Related Diagnosis Body Site Status Biopsy of R breast 1 12/16/22 Comp leted Lumpectomy of right breast 10/23/21 Completed Colonoscopy 2 06/09/21 Completed Biopsy of right breast using ultrasonographic guidance 3 01/27/21 Comp leted ORAL SURGERY PROCEDURE 4 04/2020 Completed Biopsy 5 01/2020 Completed Biopsy of breast 2018 Complete d FNA - Fine needle aspiration of breast 01/2018 Completed Left Lumpectomy 2018 Completed Biopsy of breast 06/21/17 Complete d Biopsy,left breast 6 05/18/17 Comp leted Mammogram,unilateral left di gital diagnostic mammogram 05/18/17 Completed Mammogram - screening 7 04/25/17 C ompleted Echocardiogram 8 06/2015 Complete d Exercise stress echocardiography 9 07/2014 Completed Holter monitor 10 07/09/14 Complet ed Hysterectomy 2010 Completed Colonoscopy 11 07/16/10 Completed Partial resection of colon 01/2009 Completed Appendectomy 2008 Completed Bladder - Ureter Sling 2008 Completed Osteochondroma, Right ring finger 13 2008 Completed Biopsy of breast, right 14 1998 Completed THORACOTOMY W/PLEURODESIS 1994 Completed Cervical polypectomy 1991 Comp leted Mammogram 54 Completed Lumpectomy of right breast 15 Completed 1invasive ductal carcinoma 2Impression: Patent end to side ileo-colonic anastomosis, characterized by healthy appearing mucosa. The examined portion of the ileum was normal. Diverticulosis in the sigmoid colon. The distal rectum and anal verge are normal on retroflexion view. No specimens collected. 3one showed hyperplasia of cells & unable to find 2nd spot MRI repeat in 6 months has to have a right biopsy again 4oral surgery-dental implant 5right breast biopsy 6spontaneous pneumotarax 1978, 1990, 1991 7BIRADS 0 Needs additional imaging evaluation. The possible area of architectural distortion in the 1200 left breast needs additional evaluation. 8The qualitative LV ejection fraction is 60%-64% (normal). The left ventricular diastolic function is mildly abnormal (grade 1) No significant valvular disease is present. Compared to prior study of 07/29/2014 there is no significant change. 9The stress test was terminated due to fatigue. No symptoms were noed. Preature ventriculat complex(es) noted at rest. The stress EKG response showed no evidence of ischemia Nonsustained SVT noted in recovery, no arrhythmias during exercise. The stress echo is negative for inducible ischemia. 10Dominant rhythm- sinis rhythm with normal AV conduction average rate 84 beats per min. PACs- very rare, 2 isolated beats with 1 atrial triplet. PVC's Frequent totaling 9.5% of all QRS complexes with 2 couplets and multiple long runs of bigeminy. There is 1 6 beat run of ventricular tachyardia observed rate 123 beats per minute. Symptoms- The patient reported 3 episodes of palpitations all correlating with isolated ventricularectopic beats. Impression: sinus rhythm with frequent ventricular ectopy, bigeminy with patient's symptoms correlating with isolated ventricular ectopic beats. One asymptomatic episode of ventriculartachycardia 6 beats in duration noted. 11Diverticulosis, patent functional eld to end ileo colonic anastamosis repeat in 5-10 years 12Sling 13Right ring finger [id number] right 15Done 2018 Results Laboratory List Name Date Automated Differential. 03/19/24 CBC w/ Diff. 03/19/24 PT. (PT (with INR).) 03/19/24 Most recent to oldest [Reference Range]: 1 RDW-CV [11.5-14.2 %] 12.7 % (03/19/24 12:05 PM) RDW-SD 44 *NA* (03/19/24 12:05 PM) MPV [9.0-12.2 fL] 8.5 fL *LOW* (03/19/24 12:05 PM) Immature Gran% 0.3 % *NA* (03/19/24 12:05 PM) Neut% 62.0 % *NA* (03/19/24 12:05 PM) Lymph% 27.6 % *NA* (03/19/24 12:05 PM) Bremer% 7.4 % *NA* (03/19/24 12:05 PM) Baso% 0.3 % *NA* (03/19/24 12:05 PM) Eos% 2.4 % *NA* (03/19/24 12:05 PM) Immat Gran, Abs [0.00-0.40 K/uL] 0.02 K/ uL (03/19/24 12:05 PM) Neut, Abs [2.00-7.70 K/uL] 4.10 K/uL (03/19/24 12:05 PM) Lymph, Abs [1.00-3.40 K/uL] 1.83 K/uL (03/19/24 12:05 PM) Bremer, Abs [0.00-1.00 K/uL] 0.49 K/uL (03/19/24 12:05 PM) Baso, Abs [0.00-0.10 K/uL] 0.02 K/uL (03/19/24 12:05 PM) Eos, Abs [0.00-0.50 K/uL] 0.16 K/uL (03/19/24 12:05 PM) Hct [35.0-44.0 %] 39.1 % (03/19/24 12:05 PM) Hgb [13.0-17.0 g/dL] 13.2 g/dL (03/19/24 12:05 PM) INR [0.9-1.1] 0.9 1 (03/19/24:05 PM) MCH [28.0-33.0 pg] 32.0 pg (03/19/24:05 PM) MCHC [32.0-36.0 g/dL] 33.8 g/dL (03/19/24 12:05 PM) MCV [81.0-96.0 fL] 94.9 fL (03/19/24 12:05 PM) Plts [150-350 K/uL] 218 K/uL (03/19/24 12:05 PM) PT [12.0-14.2 seconds] 12.1 seconds (03/19/24 12:05 PM) RBC [3.90-5.00 M/uL] 4.12 M/uL (8/5/24 12:05 PM) WBC [4.00-10.40 K/uL] 6.62 K/uL (03/19/24 12:05 PM) 1Interpretive Data: Suggested therapeutic range for low-intensity Coumadin therapy for venous thromboembolism is INR 2.0-3.0 (ex: atrial fibrillation, history of TIA/stroke). For high risk patients, the suggested therapeutic range is INR 2.5-3.5 (ex: mechanical prosthetic valves). Radiology Reports * Exam Date Time Procedure Performing Provider Status 03/19/24 1:10 PM IR Venous Port Removal Jovana Garnett; Final Notes: (IR Venous Port Removal) Reason For Exam: 69 yf with breast cancer, port removal IR Venous Port Removal EXAMINATION: IR Sedation Moderate > 5 years, IR Venous Port Removal PROCEDURE: Port Removal HISTORY: Pt with history of breast cancer, therapy completed. Port no longer needed. PROVIDERS: Attending Physician: Kade Garcia MD Resident Physician: None Physician Licensed Pharmacist: None INTRA-PROCEDURAL MEDICATIONS: CONTRAST: None SEDATION: The risks and benefits of moderate sedation were discussed with the patient as part of the procedural informed consent process. Physician supervised intra- procedure moderate sedation was performed for the time as stated below using a trained independent observer who monitored the patient's level ofsedation and physiologic status throughout the procedure. Pre-procedure and post-procedure sedationassessments were performed in accordance with institutional sedation policy and are documented separately in the medical record. Sedation 1:versed Sedation Volume 1:2mg Sedation 2:fentanyl Sedation Volume 2:100mcg Sedation Start Time:1245 Sedation End Time:1310 Sedation Total Time:25 min DOSIMETRY: Fluoroscopy time: 0.00 (accession [id number]), 0.10 (accession [id number]) minutes Cumulative Dose: 2 mGy EST. BLOOD LOSS: Minimal (under 10cc) COMPLICATIONS: None. TECHNIQUE: The port site was examined and any previous imaging and reports were reviewed. Following informed consent, and verification of the correct patient identity and planned procedure, the left neck and upper chest were sterilely prepped and draped. Local anesthesia was achieved using 1% Lidocaine with epinephrine. A small incision was made over the port pocket. It was deepened to the level of the port and the port was removed uneventfully. Hemostasis was assured. The pocket was closed in 2 layers with 2-0 Vicryl and 4-0 Vicryl. Steri-strips were applied followed by a sterile dressing. Final image conformed complete removal. FINDINGS: The port was uneventfully removed. IMPRESSION: Successful removal of a chest port as described. ATTENDING PHYSICIAN ATTESTATION: The procedure was performed by the signing faculty. Workstation ID: [id number] Final Dictated by:MD Garcia Leslie B Dictated DT/TM:03/19/2024 2:22 Signed by:MD Garcia Leslie B Signed (Electronic Signature):03/19/2024 2:21 p * Exam Date Time Procedure Performing Provider Status 03/19/24 1:02 PM IR Sedation Moderate > 5 years Gauri Nguyen; Final Notes: (IR Sedation Moderate > 5 years) Reason For Exam: port IR Sedation Moderate > 5 years EXAMINATION: IR Sedation Moderate > 5 years, IR Venous Port Removal PROCEDURE: Port Removal HISTORY: Pt with history of breast cancer, therapy completed. Port no longer needed. PROVIDERS: Attending Physician: Kade Garcia MD Resident Physician: None Physician Licensed Pharmacist: None INTRA-PROCEDURAL MEDICATIONS: CONTRAST: None SEDATION: The risks and benefits of moderate sedation were discussed with the patient as part of the procedural informed consent process. Physician supervised intra- procedure moderate sedation was performed for the time as stated below using a trained independent observer who monitored the patient's level ofsedation and physiologic status throughout the procedure. Pre-procedure and post-procedure sedationassessments were performed in accordance with institutional sedation policy and are documented separately in the medical record. Sedation 1:versed Sedation Volume 1:2mg Sedation 2:fentanyl Sedation Volume 2:100mcg Sedation Start Time:1245 Sedation End Time:1310 Sedation Total Time:25 min DOSIMETRY: Fluoroscopy time: 0.00 (accession [id number]), 0.10 (accession [id number]) minutes Cumulative Dose: 2 mGy EST. BLOOD LOSS: Minimal (under 10cc) COMPLICATIONS: None. TECHNIQUE: The port site was examined and any previous imaging and reports were reviewed. Following informed consent, and verification of the correct patient identity and planned procedure, the left neck and upper chest were sterilely prepped and draped. Local anesthesia was achieved using 1% Lidocaine with epinephrine. A small incision was made over the port pocket. It was deepened to the level of the port and the port was removed uneventfully. Hemostasis was assured. The pocket was closed in 2 layers with 2-0 Vicryl and 4-0 Vicryl. Steri-strips were applied followed by a sterile dressing. Final image conformed complete removal. FINDINGS: The port was uneventfully removed. IMPRESSION: Successful removal of a chest port as described. ATTENDING PHYSICIAN ATTESTATION: The procedure was performed by the signing faculty. Workstation ID: [id number] Final Dictated by:MD Garcia Leslie B Dictated DT/TM:03/19/2024 2:22 Signed by:MD Garcia Leslie B Signed (Electronic Signature):03/19/2024 2:21 p Vital Signs Most recent to oldest [Reference Range]: 1 2 3 Height 160 cm (03/19/24 11:59 AM) Patient Weight 66 kg (03/19/24 11:59 AM) Body Mass Index 25.78 kg/m2 (03/19/24 11:59 AM) Temperature [36.5-37.9 DegC] 36.9 DegC (03/19/24 2:45 PM) 36.7 DegC (03/19/24 1:13 PM) 36.2 DegC *LOW* (03/19/24 11:59 AM) Heart Rate 78 bpm (03/19/24 2:45 PM) 96 bpm (03/19/24 2:15 PM) 90 bpm (03/19/24 1:45 PM) Respiratory Rate 15 br/min (03/19/24 1:10 PM) 15 br/min (03/19/24 1:05 PM) 13 br/min (03/19/24 1:00 PM) Blood Pressure 111/59mmHg (03/19/24 2:45 PM) 103/45mmHg (03/19/24 2:15 PM) 122/55mmHg (03/19/24 1:45 PM) Mean Blood Pressure 74 mmHg (03/19/24 2:45 PM) 62 mmHg (03/19/24 2:15 PM) 74 mmHg (03/19/24 1:45 PM) Cuff Pulse Pressure 52 mmHg (03/19/24 2:45 PM) 58 mmHg (03/19/24 2:15 PM) 67 mmHg (03/19/24 1:45 PM) BP Location # 1 Right Arm (03/19/24 2:45 PM) Right Arm (03/19/24 2:15 PM) Right Arm (03/19/24 1:45 PM) Social History Social History Type Response Tobacco Former smoker, Cigar ettes, 0.5 per day. 35 year(s). Started age 22 Years. Stopped age 57 Years. Smoking Status Former Smoker, quit > 1 yr Sex Female Sex Representation Female (finding) Radiology H&P * MD Radha, Terese Carvajal: PERFORM Event Display: Radiology H&P Authored Date: RADIOLOGY HISTORY AND PHYSICAL Click on the 'Insert Template' icon above (Stamper). Choose the appropriate H&P Update Templatefrom the list of Associated Templates and select the 'Replace' option. RADIOLOGY HISTORY AND PHYSICAL - SEDATION Name: RADAMES CORDOVA Patient Number: [id number] : 1955 Date of Service: 03/19/2024 PLANNED PROCEDURE: Port removal Chief Complaint: Port no longer needed History of Present Illness: Breast cancer; treatment completed Past Medical History: Problems Active Breastcancer Diarrhea Rightelbowpain Post-nasaldrip Cough Aorticcalcification SVT(supraventriculartachycardia) Palpitations Anxiety Medicareannualwellnessvisit,subsequent CADinnativeartery COVID-19vaccineseriescompleted Vaginalatrophy Dyspareuniainfemale Femaleurethrocele Arek-Xxqy-Rghtmossqnpc Hyperlipidemia DCIS(ductalcarcinomainsitu) Allergytomultipleantibiotics Lobularcarcinomainsitu(LCIS)ofbreast FrequentunifocalPVCs Needforprophylacticvaccinationandinoculationagainst influenza Malignantcarcinoidtumoroftheappendix Slingprocedureofbladderneck Resectionofascendingcolon,cecumandterminalileum Laparoscopicradicalvaginalhysterectomy[LRVH] Surgical History: Procedure History Procedure Procedure Date Comments Lumpectomy of right breast - Done 2019 Biopsy of R breast 12/16/2022 - invasive ductal carcinoma Lumpectomy of right breast 10/23/2021 Colonoscopy 06/09/2021 - Impression: Patent end to side ileo-colonic anastomosis, characterized by healthy appearing mucosa. The examined portion of the ileum was normal. Diverticulosis in the sigmoid colon. The distal rectum and anal verge are normal on retroflexion view. No specimens collected. Biopsy of right breast using ultrasonographic guidance 01/27/2021 - one showed hyperplasia of cells & unable to find 2nd spotMRI repeat in 6 months has to have aright biopsy again ORAL SURGERY PROCEDURE 04/2020 - oral surgery-dental implant Biopsy 01/2020 - right breast biopsy Biopsy of breast 2018 FNA - Fine needle aspiration of breast 01/2018 Left Lumpectomy 2018 Biopsy of breast 06/21/2017 Biopsy, left breast 05/18/2017 - spontaneous pneumothorax 1978, 1990, 1991 Mammogram, unilateral left digital diagnostic mammogram 05/18/2017 Mammogram - screening 04/25/2017 - BIRADS 0 Needs additional imaging evaluation. The possible area of architectural distortion in the 1200 left breast needs additional evaluation. Echocardiogram 06/2015 - The qualitative LV ejection fraction is 60%-64% (normal).The left ventricular diastolic function is mildly abnormal (grade 1)No significant valvular disease is present. Compared to prior study of 07/29/2014 there is no significant change. Exercise stress echocardiography 07/2014 - The stress test was terminated due to fatigue. No symptoms were noed. Premature ventricular complex(es) noted at rest. The stress EKG response showed no evidence of ischemia. Nonsustained SVT notedin recovery, no arrhythmias during exercise. The stress echo is negative for inducible ischemia. Holter monitor 07/09/2014 - Dominant rhythm- sinus rhythm with normal AV conduction average rate 84 beats per min. PACs- veryrare, 2 isolated beats with 1 atrial triplet. PVC's Frequent totaling 9.5% of all QRS complexes with 2 couplets and multiple long runs of bigeminy. There is 1 6 beat run of ventricular tachycardia observed rate 123 beats per minute. Symptoms- The patient reported 3 episodes of palpitations all correlating with isolated ventricular ectopic beats. Impression: sinus rhythm with frequent ventricular ectopy, bigeminy with patient's symptoms correlating with isolated ventricular ectopic beats. One asymptomatic episode of ventricular tachycardia 6 beats in duration noted. Hysterectomy 2010 Colonoscopy 07/16/2010 - Diverticulosis, patent functional end to end ileo colonic anastomosis repeat in 5-10 years Appendectomy 2009 Osteochondroma, Right ring finger Before 2008 - Right ring finger Bladder - Ureter Sling 2008 - Sling Partial resection of colon 01/2009 Biopsy of breast, right 1998 - 1998 right THORACOTOMY W/PLEURODESIS 1994 Cervical polypectomy 1991 Mammogram 1954 Anesthetic History: Prior difficulty: _ Yes x No If yes, provider details: _ Allergies and Sensitivities: Tape(Itching) Tape(redness) penicillin(Unknown) Macrobid(lower abdominal pain) Crestor(muscle aches) Zetia(GI upset) simvastatin(severe muscle pain & tension) Allergy(MARCELINA CHEMICALS - anaphylaxis/headache) Cipro(tendonitis) Cipro(tachycardia) sulfa drugs(rash, hives, hallucinations) Current Home Meds: (Last Updated 03/19 12:10) LORazepam (Ativan 0.5 mg oral tablet) 0.5 mg PO Daily PRN: as needed for anxiety acetaminophen (Tylenol 500 mg oral tablet) 1,000 mg PO q6h PRN: as needed for pain aspirin (aspirin 81 mg oral capsule) 81 mg PO Daily atropine-diphenoxylate (Lomotil 2.5 mg-0.025 mg oral tablet) 1 tab PO bid PRN: as needed for loose stool bifidobacterium-lactobacillus (Probiotic Formula) 1 cap PO Daily cholecalciferol (Vitamin D3) 5,000 Int_Unit PO Daily evolocumab (Repatha SureClick 140 mg/mL subcutaneous solution) subQ [id number] ibuprofen (ibuprofen 600 mg oral tablet) 600 mg PO qid PRN: as needed for pain lidocaine-prilocaine topical (Emla 2.5%-2.5% topical cream) 1 appl topical ONCE loperamide (loperamide 2 mg oral capsule) 2 mg PO q6h loratadine (loratadine 10 mg oral tablet) 10 mg PO q48h PRN: as needed for allergy symptoms metoprolol (Metoprolol Succinate ER 25 mg oral tablet, extended release) TAKE 1/2 TABLET BY MOUTH ONCE DAILY may take an additional 1/2 tab as needed for palpitations. multivitamin 1 tab PO Daily omega-3 polyunsaturated fatty acids (Fish Oil) 500 mg PO Daily ondansetron (ondansetron 4 mg oral tablet) 4 mg PO bid PRN: as needed for nausea/vomiting tamoxifen (tamoxifen 10 mg oral tablet) 1 tab PO bid alternating with 1 po daily HAZARDOUS MEDICATION | tablet: green | oral soln: yellow - M Mayitoar 01/24 10:54 ubiquinone (Co Q-10) takes 2 capsules daily unknown medication (magnesium 6 lycinate) 500 mg daily unlisted medication (NAC) 1 po daily venlafaxine (Effexor 25 mg oral tablet) 25 mg PO qhs Vitals: Last Updated 03/19/24 11:59 Weights: Last Updated 03/19/24 11:59 Date Temp Pulse BP RR SpO2 FIO2 Date Wt(kg) Wt(lb) 03/19 11:59 36.2 113/71 12 97 03/19 11:59 66.0 145 03/19 11:59 66.0 145 24 Hr Tmax: 36.2 at 03/19 11:59 Initial Wt: 03/19 66.0 kg 145 lb Physical Exam: Robust WF in NAD Level of Consciousness/Mental Status: Awake: x Yes _ No Alert: x Yes _ No Oriented: x Yes _ No Mental Status: If No, Comment _ Airway: Indicate class, A high score (class 3 or 4) is a predictor of a more difficult intubation. The Mallampati Score _ Class 1: Complete visualization of the soft palate x Class 2: Complete visualization of the uvula _ Class 3: Visualization of only the base of the uvula _ Class 4: Soft palate is not visible at all Lungs: x Clear _ Rales _ Rhonchi _ Wheeze Heart: x Normal Sinus Rhythm _ Murmur _ Arrhythmia _ List: _ Citizen Of [place] Society of Anesthesia Classification: _ I. Normal healthy patient x II. Patient with mild systemic disease _ III. Severe systemic disease _ IV. Severe systemic disease which is threat to life _ V. Moribund, not expected to survive without procedure Sedation Plan: x Moderate _ Reschedule with Anesthesia 30 Day Labs: 03/19/24 1205 Hct 39.1 RDW-SD 44 Lymph, Abs 1.83 Bremer% 7.4 WBC 6.62 MCH 32.0 MPV 8.5 L Baso% 0.3 Eos, Abs 0.16 Hgb 13.2 RDW-CV 12.7 Neut, Abs 4.10 Lymph% 27.6 Neut% 62.0 Immat Gran, Abs 0.02 MCV 94.9 Plts 218 Eos% 2.4 Bremer, Abs 0.49 RBC 4.12 MCHC 33.8 Baso, Abs 0.02 Immature Gran% 0.3 INR 0.9 PT 12.1 03/07/24 1417 Estimated CrCl 105.34 03/07/24 1315 MCHC 33.8 Neut, Abs 3.79 Neut% 63.9 Immature Gran% 0.2 Hct 35.5 Plts 183 Bremer% 7.3 Bremer, Abs 0.43 WBC 5.92 MCH 32.0 Baso% 0.2 Type of Diff: AUTO Baso, Abs 0.01 Hgb 12.0 Lymph% 26.2 RDW 12.6 Immat Gran, Abs 0.01 Lymph, Abs 1.55 MCV 94.7 MPV 8.8 L Eos, Abs 0.13 Eos% 2.2 RBC 3.75 L LDH 214 BUN 13 Glu 127 H eGFR CKD-EPI >90 K 4.0 HCO3 25 Anion Gap 9 Na 137 Cret 0.47 L Ca 9.1 Cl- 103 T Bili 0.3 Alk Phos 56 ALT 21 AST 22 Alb 4.2 Prot 6.4 Assessment: Breast cancer, treatment completed. For port removal Plan: Port removal x The planned sedation has been discussed with the patient and consent obtained. I have identified the patient, determined the appropriateness of sedation, and have assessed the patient immediately prior to procedure. All medicine(s) and interventions are by my order. Electronic Signature on File Electronically Reviewed/Signed by: Terese Garcia MD Author Signature Dt/Tm:03/19/2024 12:38 PM Interventional Radiology LBS Discharge instructions * MD Garcia Leslie B: PERFORM Event Display: Patient Discharge Instructions Authored Date: [id number] RADAMES CORDOVA Gary :1955 Visit Date:03/19/2024 Patient Discharge Instructions [facility] For questions or further information, call: . Date of Admission:03/19/2024 Date of Discharge:03/19/2024 Physician:MD Garcia Leslie B Service:Radiology Discharge Disposition: . Advance Directive:Living will Reason for Hospitalization Port no longer needed Your Diagnoses Breast CA (treated); port no longer needed My Health Patient Portal: [facility] [employer] makes it easy for you to manage your health information online. My [employer] is a free service that provides you instant, secure access to your medical information anytime, anywhere. Sign in or set up your account today at [email or web address] Thank you for allowing us to assist you with your healthcare needs. If you need additional community resources, [place] can help at https://www.pa211.org. 211 can assist you in connecting with social programs based on your unique needs and locations. 211 is an anonymous search that can help you locate resources for: Food, Housing, Transportation, Goods, Education and Healthcare. Medications What How Much When Why Instructions Next Dose Changed acetaminophen 650 Milligram by mouth Every 4 hours as needed for pain - mild (1-3) Changed acetaminophen (Tylenol 500 mg oral tablet) 1,000 Milligram by mouth Every 6 hours as needed for as needed for pain Unchanged aspirin (aspirin 81 mg oral capsule) 1 cap by mouth Once daily Hyperlipidemia Frequent unifocal PVCs Unchanged atropine-diphenoxylate (Lomotil 2.5 mg-0.025 mg oral tablet) 1 tab(s) by mouth 2 times daily as needed for as needed for loose stool Unchanged bifidobacterium-lactobacillus (Probiotic Formula) 1 cap by mouth Once daily Unchanged cholecalciferol (Vitamin D3) 5,000 International Unit by mouth Once daily Unchanged evolocumab (Repatha SureClick 140 mg/ mL subcutaneous solution) subcutaneously Every 2 weeks Unchanged ibuprofen (ibuprofen 600 mg oral tablet) 1 tab(s) by mouth 4 times daily as needed for as needed for pain Unchanged lidocaine-prilocaine topical (Emla 2.5%-2.5% topical cream) 1 theodore topically Once Unchanged loperamide (loperamide 2 mg oral capsule) 1 cap by mouth Every 6 hours Unchanged loratadine (loratadine 10 mg oral tablet) 1 tab(s) by mouth Every 48 hours as needed for as needed for allergy symptoms Unchanged LORazepam (Ativan 0.5 mg oral tablet) 1 tab(s) by mouth Once daily as needed for as needed for anxiety Unchanged metoprolol (Metoprolol Succinate ER 25 mg oral tablet, extended release) See instructions TAKE 1/ 2 TABLET BY MOUTH ONCE DAILY may take an additional 1/ 2 tab as needed for palpitations. Unchanged multivitamin 1 tab(s) by mouth Once daily Unchanged omega-3 polyunsaturated fatty acids (Fish Oil) 500 Milligram by mouth Once daily Unchanged ondansetron (ondansetron 4 mg oral tablet) 1 tab(s) by mouth 2 times daily as needed for as needed for nausea/vomiting Unchanged tamoxifen (tamoxifen 10 mg oral tablet) See instructions 1 tab PO bid alternating with 1 po daily Unchanged ubiquinone (Co Q-10) See instructions takes 2 capusles daily Unchanged unknown medication (magnesium 6 lycinate) 500 mg daily Unchanged unlisted medication (NAC) See instructions 1 po daily Unchanged venlafaxine (Effexor 25 mg oral tablet) 1 tab(s) by mouth At bedtime Allergies AllergyPETRO CHEMICALS - anaphylaxis/headache Ciprotachycardia, tendonitis Crestormuscle aches Macrobidlower abdominal pain Taperedness, Itching Zetiagi upset penicillinUnknown simvastatinsevere muscle pain & tension sulfa drugsrash, hives, hallucinations What to do next Instructions From Your Doctor Steri-strips were used on your incision. They will remain in place and eventually fall off naturally. DO NOT remove the Steri-strips unless they are still on at 2 weeks. DO NOT irritate the skin around the incision. DO NOT immerse the procedure site in water for at least two (2) days beginning the day after the procedure (no baths, hot tubs, or swimming). Do not apply lotions, ointments, orpowders to the site until it is fully healed. For 24 hours after the procedure: 1) Do not lift anything heavier than a gallon of milk (about 8-10 pounds). 2) You MAY NOT drive a car or operate heavy machinery. 3) Do not engage in vigorous exercise (e.g., running, aerobics, tennis, bowling, biking, golfing,or sexual activity). If you notice the following symptoms Your incision site will be tender and sore for 3-10 days. Someminorbruising may also be present, which is normal. Please contact us immediately at the numbers listed below if you are experiencing any of the following complications: 1. New onset of pain (at the procedure site or elsewhere). 2. Redness, swelling, purulent (yellow or green) drainage, or a fever greater [id number]. 3. Pain at the procedure site that arises several days or weeks after the initial pain has resolved. 4. NEW swelling around the procedure site that is painful, getting bigger, or has any drainage. You can contact the Interventional Radiology service at [facility] with any concerns during normalbusiness hours at [phone]. Contact the [facility] at . If unable to contact your physician and you feel it is an emergency, go to the nearest Emergency Room or call 911 Diet Instructions Usual diet Activity Instructions As above under "What to do next; instructions from your doctor" Follow-Up Appointments Scheduled Follow-Up Appointments Date/Time:Provider/Resource: Mar 01:45 DO Flor Gretchen Elizabeth Location/Instructions:[facility], [address] [place] [address], [place] [address] Date/Time:Provider/Resource: Apr 10:15 Pending sale to [facility] MRI Rm 2 Location/Instructions:Do not eat 4 hrs. before the exam. You may have clear liquids. You may takemedications.To ensure your safety ALL patients will be required to change into a gown. Please DO NOT wear undergarments that contain any Metallic components to them, as these have the potential to cause injury. All glucose monitoring devices will be required to be removed. Children under the age of12 years require adult supervision and may not be left unattended while a parent or guardian is having an exam. Date/Time:Provider/Resource: Apr 10:00 [facility] DX 1 Location/Instructions:Please arrive 15 minutes prior to your appointment time. Please do not use deodorant or powder on the day of your exam. Date/Time:Provider/Resource: Apr 10:30 [facility] US 1 Location/Instructions:[facility], [address], Entrance A, [place] [address]. Check in at the Breast Center desk. If you need to cancel or reschedule your appointment, call [phone]. For Screening Mammos call [phone] press 1, For Diagnostic Mammograms, Breast Ultrasound, and Bone Density call [phone] press 2.For Imaging appointments, please minutes before your scheduled time. Thank you. Date/Time:Provider/Resource: Apr 12:45 DO Ogden Karisa Irene Location/Instructions:[facility], [address], En[address], [place] [address]. Check in at the [facility] desk. If you need to cancel or reschedule your appointment, call [phone]. For Screening Mammos call [phone] press 1, For Diagnostic Mammograms, Breast Ultrasound, and Bone Density call [phone] press 2.For Imaging appointments, please mgdxeo54 minutes before your scheduled time. Thank you. Date/Time:Provider/Resource: May 10:00 amLab/Specimen Location/Instructions:[facility], [address], 1st floor, [address], [facility] [address] Date/Time:Provider/Resource: May 11:00 MD Boo Monali K Location/Instructions:[facility], [address], 1[address] floor, [address], [place] [address] The Following Services Have Been Arranged for You No Post-Acute Placement(s) Listed No Post-Acute Service(s) Listed Tests Pending None Procedures Performed Port removal 03/19/2024 Special Instructions Common Emergency Awareness Tips Call 911 immediately if: experiencing any of the warning signs and symptoms of stroke: B.E. F.A.S.T. Balance: is there trouble with walking or coordination Eyes: is there double vision or visual loss Face: Smile, do both sides of face move equally Arm: Raise arms, do both arms move equally Speech: Is speech slurred or inappropriate Time: Time is critical, call 911 immediately Heart Attack Signs Chest discomfort: Most heart attacks involve discomfort in the center of the chest and lasts more than a few minutes, or goes away and comes back. It can feel like uncomfortable pressure, squeezing, fullness or pain. Discomfort in upper body: Symptoms can include pain or discomfort in one or both arms, back, neck, jaw or stomach. Shortness of breath: With or without discomfort. Other signs: Breaking out in a cold sweat, nausea, or lightheaded. Remember, MINUTES DO MATTER. If you experience any of these heart attack warning signs, call to get immediate medical attention! Patient Care team information Care Team Personnel Name: DO Martinez Alison L Position: Physician - Radiologist Member Role: Lifetime Relationship Address: [address] [place] [address] [place] Name: Matias Tomlin Kimberly Position: Pharmacist BCMA Member Role: Pharmacy - Lifetime Address: [address] [address] [place] Name: DO Marcus Gretchen Elizabeth Position: Physician - Family Med Member Role: Primary Care Provider Address: [address] [place] [address] [place] Name: MD uRel, Sheri Fitzpatrick Position: Physician - Surgery Oncology Member Role: Lifetime Relationship Address: [address] [facility] [address] [facility] [place] [address] Name: Lela Torre Position: HIS Supervisor_P Member Role: HIS Lifetime Care Team Related Persons Name: KARL MORRISON Name: LOPEZ CORDOVA Name: LOPEZ CORDOVA
--- OUTSIDE RECORDS SUMMARY | 2024-03-23 14:49 | External Medical Summary ---
Author Name Unknown Address Unknown Organization [facility] [address] [place] [address] Laboratory Report Ordering Provider Test Date Status Radha Gudino 03/19/2024 12:05:00 Final Observation Date Value Abnormality Reference (Units ) Status Neutrophils/100 leukocytes in Blood by Automated count 03/19/2024 12:14:34 62.0 (%) Final Lymphocytes/100 leukocytes in Blood by Automated count 03/19/2024 12:14:34 27.6 (%) Final Monocytes/100 leukocytes in Blood by Automated count 03/19/2024 12:14:34 7.4 (%) Final Eosinophils/100 leukocytes in Blood by Automated count 03/19/2024 12:14:34 2.4 (%) Final Basophils/100 leukocytes in Blood by Automated count 03/19/2024 12:14:34 0.3 (%) Final Immature granulocytes/100 leukocytes in Blood 03/19/2024 12:14:34 0.3 (%) Final Neutrophils [#/volume] in Blood by Automated count 03/19/2024 12:14:34 4.10 2.00-7.70 (K/uL) Final Lymphocytes [#/volume] in Blood by Automated count 03/19/2024 12:14:34 1.83 1.00-3.40 (K/uL) Final Monocytes [#/volume] in Blood by Automated count 03/19/2024 12:14:34 0.49 0.00-1.00 (K/uL) Final Eosinophils [#/volume] in Blood by Automated count 03/19/2024 12:14:34 0.16 0.00-0.50 (K/uL) Final Basophils [#/volume] in Blood by Automated count 03/19/2024 12:14:34 0.02 0.00-0.10 (K/uL) Final Immature granulocytes [#/volume] in Blood by Automated count 03/19/2024 12:14:34 0.02 0.00-0.40 (K/uL) Final Performing Location [facility] [address] [place] [address]
--- OUTSIDE RECORDS SUMMARY | 2024-03-23 14:49 | External Medical Summary | Continuity of Care Document ---
Author Name Unknown Organization [facility] Address [address] [place] [id number] Care Team Providers Care Restrooms Or Lounges Maid Name Role Phone Naomi Marcus Primary Care Physicia n [phone] Encounter [facility] [id number] Date(s): 03/07/24 - 03/07/24 [facility] [address] [place] [id number]- [phone] Encounter Diagnosis Breast cancer in female(Discharge Diagnosis) - 03/07/24 Discharge Disposition: Home or Self Care Attending Physician: MD Watkins Monali K Referring Physician: MD June, Estefanía Coto Allergies, Adverse Reactions, Alerts Substance Criticality Severity Reaction Reaction Severity Status penicillin Unknown Active Cipro tachycardia tendonitis Active simvastatin severe muscle p ain & tension Active sulfa drugs rash, hives, hallucinations Active Macrobid 1 lower abdominal pain Active Zetia gi upset Active Tape 2 redness Itching Active Crestor 3 muscle aches Active Allergy 4 MARCELINA CHEMICALS - anaphylaxis/headache Active 1onset after 3 doses of macrobid, was able to finish 5 d course. 2steri strips & paper tape are ok 3even with 1/2 of a 5 mg tablet once a week 4PETRO CHEMICALS Functional Status 03/07/24 Gait Steady Immunizations Given and Recorded Vaccine Date Status Refusal Reason pneumococcal 23-valent vaccine 03/11/21 Given pneumococcal 23-valent vaccine 03/20/02 Recorded SARS-CoV-2 (COVID-19) mRNA-1273 vaccine 1 10/02/20 Recorded SARS-CoV-2 (COVID-19) mRNA-1273 vaccine 09/05/20 R ecorded zoster vaccine, inactivated 10/08/19 Given zoster vaccine, inactivated 03/22/19 Given pneumococcal 13-valent vaccine 03/22/19 Given tetanus/diphtheria/pertuss, acel (Tdap) 05/18/13 R ecorded tetanus toxoids-diphtheria, Td (Adult) 02/08/03 Re corded 1Result Comment: [facility] Medications aspirin 81 mg oral capsule Start: 12/10/21 1:41:00 PM EDT, 1 cap, PO, Daily, Disp# 100 cap, Refills: 3, other Start Date: 12/10/21 Status: Ordered Ativan 0.5 mg oral tablet Start: 10/26/23 2:51:00 PM EDT, 1 tab, PO, Daily, Disp# 30 tab, Refills: 0, PRN: as needed for anxiety, Pharmacy: [id number] Start Date: 10/26/23 Status: Ordered Co Q-10 Start: 05/26/20 12:33:00 PM EDT, See Instructions, takes 2 capusles daily Start Date: 05/26/20 Status: Ordered Effexor 25 mg oral tablet Start: 12/28/23 10:48:00 AM EDT, 1 tab, PO, qhs, Disp# 30 tab, Refills: 4, Pharmacy: [facility] Start Date: 12/28/23 Status: Ordered Emla 2.5%-2.5% [...] PRN: as needed for pain, [facility]acy: [facility] Start Date: 12/04/10 Status: Ordered Lomotil 2.5 mg-0.025 mg oral tablet Start: 12/22/23 5:01:00 PM EDT, 1 tab, PO, bid, Disp# 30 tab, Refills: 0, PRN: as needed for loose stool, Pharmacy: [facility] Start Date: 12/22/23 Status: Ordered loperamide 2 mg oral capsule Start: 10/26/23 2:49:00 PM EDT, 1 cap, PO, q6h, Disp# 30 cap, Refills: 1, Pharmacy: [facility] Start Date: 10/26/23 Status: Ordered loratadine 10 [...] solution Start: 05/26/21 1:59:00 PM EDT, subQ, [id number] Start Date: 05/26/21 Status: Ordered tamoxifen 10 [...] Start Date: 09/13/16 Status: Ordered Mental Status 03/07/24 Barriers to Learning one year Vision imp airment, Other: glasses Problem List Condition Confirmation Course Effective Dates Status H ealth Status Informant Allergy to multiple antibiotics Confirmed Active Anxiety Confirmed Active Vaginal atrophy Confirmed Active CAD in [place] artery Confirmed Active Cough Confirmed Active Diarrhea [...] appendix Confirmed Active Breast cancer Confirmed Active Nnso-Dfph-Lskz syndrome Confirmed Active Need for prophylactic vaccination and inoculation against influenza Confirmed Active Right elbow pain Confirmed Active Palpitations Confirmed Active Medicare annual wellness visit, subsequent Confirmed Active Post-nasal drip Confirmed Active Resection of ascending colon, cecum and terminal ileum 3 Confirmed Active Sling procedure of bladder neck Confirmed Active SVT (supraventricular tachycardia) 4 Confirmed Active Frequent unifocal PVCs Confirmed Active 1Added per Insulator Technician [id number] 02/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 4Added per Insulator Technician [id number] 02/23/2023 Diagnosis Diagnosis Type Effective Dates Health Status inical Service Informant Breast cancer in female Discharge Diagnosis 03/07/24 Non-Specified Procedures Procedure Date Related Diagnosis Body Site [...] 9 07/2014 Completed Holter monitor 10 07/09/14 [facility] ed Hysterectomy 2010 Completed Colonoscopy 11 07/16/10 [...] in 5-10 years 12Sling 13Right ring finger [id number] right 15Done 2019 Results Laboratory List Name Date Complete Blood Count w Differential (CBC ,DIFFH) 03/07/24 Comprehensive Metabolic Panel (COMP META B PANEL) 03/07/24 Lactate Dehydrogenase (LD) 03/07/24 Most recent to oldest [Reference Range]: 1 eGFR CKD-EPI [>60 mL/min/1.73 m2] >90 mL /min/1.73 m2 (03/07/24 1:15 PM) Estimated CrCl 105.34 mL/min (03/07/24 2:17 PM) MPV [9.0-12.2 fL] 8.8 fL *LOW* (03/07/24 1:15 PM) Immature Gran% 0.2 % (03/07/24 1:15 PM) Neut% 63.9 % (03/07/24 1:15 PM) Lymph% 26.2 % (03/07/24 1:15 PM) Hale% 7.3 % (03/07/24 1:15 PM) Baso% 0.2 % (03/07/24 1:15 PM) Eos% 2.2 % (03/07/24 1:15 PM) Immat Gran, Abs [0-0.4 K/uL] 0.01 K/uL (03/07/24 1:15 PM) Neut, Abs [2.0-7.7 K/uL] 3.79 K/uL (03/07/24 1:15 PM) Lymph, Abs [1.0-3.4 K/uL] 1.55 K/uL (03/07/24 1:15 PM) Hale, Abs [0-1.0 K/uL] 0.43 K/uL (03/07/24 1:15 PM) Baso, Abs [0-0.1 K/uL] 0.01 K/uL (03/07/24 1:15 PM) Eos, Abs [0-0.5 K/uL] 0.13 K/uL (03/07/24 1:15 PM) Type of Diff: AUTO *Unknown* (03/07/24 1:15 PM) RDW [11.5-14.2 %] 12.6 % (03/07/24 1:15 PM) Anion Gap [5-14 mmol/L] 9 mmol/L (03/07/24 1:15 PM) Alb [3.5-5.2 g/dL] 4.2 g/dL (03/07/24 1:15 PM) Alk Phos [35-115 unit/L] 56 unit/L 1 (03/07/24 1:15 PM) ALT [0-33 unit/L] 21 unit/L (03/07/24 1:15 PM) AST [0-32 unit/L] 22 unit/L (03/07/24 1:15 PM) BUN [6-23 mg/dL] 13 mg/dL (03/07/24 1:15 PM) Ca [8.4-10.2 mg/dL] 9.1 mg/dL (03/07/24 1:15 PM) Cl- [98-107 mmol/L] 103 mmol/L (03/07/24 1:15 PM) HCO3 [22-29 mmol/L] 25 mmol/L (03/07/24 1:15 PM) Cret [0.60-1.00 mg/dL] 0.47 mg/dL *LOW* (03/07/24 1:15 PM) Glu [74-109 mg/dL] 127 mg/dL 2 *HI* (03/07/24 1:15 PM) Hct [35-44 %] 35.5 % (03/07/24 1:15 PM) Hgb [11.7-15.0 g/dL] 12.0 g/dL (03/07/24 1:15 PM) K [3.5-5.1 mmol/L] 4.0 mmol/L (03/07/24 1:15 PM) LDH [135-250 unit/L] 214 unit/L (03/07/24 1:15 PM) MCH [28-33 pg] 32.0 pg (03/07/24 1:15 PM) MCHC [32-36 g/dL] 33.8 g/dL (03/07/24 1:15 PM) MCV [81-96 fL] 94.7 fL (03/07/24 1:15 PM) Na [136-145 mmol/L] 137 mmol/L (03/07/24 1:15 PM) Plts [150-350 K/uL] 183 K/uL (03/07/24 1:15 PM) RBC [3.90-5.00 M/uL] 3.75 M/uL *LOW* (03/07/24 1:15 PM) T Bili [0.0-1.2 mg/dL] 0.3 mg/dL (03/07/24 1:15 PM) Prot [6.4-8.3 g/dL] 6.4 g/dL (03/07/24 1:15 PM) WBC [4.0-10.4 K/uL] 5.92 K/uL (03/07/24 1:15 PM) 1Result Comment: Low levels of ALKP may indicate a deficiency in zinc, magnesium, or malnutritionbutcan also be an indicator of a rare genetic disease hypophosphatasia (HPP). 2Result Comment: ADA recommendation for FASTING Serum/Plasma Glucose: Normal: 70-100 mg/dL Prediabetes: 100-125 mg/dL Diabetes: 126 mg/dL or higher Vital Signs Most recent to oldest [Reference Range]: 1 Temperature [36.5-37.9 DegC] 36.5 DegC (03/07/24 12:07 PM) Heart Rate 62 bpm (03/07/24 12:07 PM) Respiratory Rate 16 br/min (03/07/24 12:07 PM) Blood Pressure 138/69mmHg (03/07/24 12:07 PM) Cuff Pulse Pressure 69 mmHg (03/07/24 12:07 PM) BP Location # 1 Left Arm (03/07/24 12:07 PM) Social History Social History Type Response Tobacco Former smoker, Cigar ettes, 0.5 per day. 35 year(s). Started age 22 Years. Stopped age 57 Years. Smoking Status Former Smoker, quit > 1 yr Sex Female Sex Representation Female (finding) Patient Care team information Care Team Personnel Name: DO Martinez Alison L Position: Physician - Radiologist Member Role: Lifetime Relationship Address: [address] [place] [address] [place] Name: Matias Tomlin Kimberly Position: Pharmacist BCMA Member Role: Pharmacy - Lifetime Address: [facility] [address] [place] [address] [place] Name: DO Marcus Gretchen Elizabeth Position: Physician - Family Med Member Role: Primary Care Provider Address: [address] [place] [address] Name: MD Ruel, Sheri Fitzpatrick Position: Physician - Surgery Oncology Member Role: Lifetime Relationship Address: [address] [facility] [address] [place] [address] Name: Lela Torre Position: HIS Supervisor_P Member Role: HIS Lifetime Care Team Related Persons Name: KARL MORRISON Name: LOPEZ CORDOVA Name: LOPEZ CORDOVA
--- OUTSIDE RECORDS SUMMARY | 2024-03-23 14:49 | External Medical Summary ---
Author Name Unknown Address Unknown Organization [facility] [address] [place] [address] Laboratory Report Ordering Provider Test Date Status Radha Gudino 03/19/2024 12:05:00 Final Observation Date Value Abnormality Reference (Units ) Status Leukocytes [#/volume] in Blood by Automated count 03/19/2024 12:14:34 6.62 4.00-10.40 (K/uL) Final Erythrocytes [#/volume] in Blood by Automated count 03/19/2024 12:14:34 4.12 3.90-5.00 (M/uL) Final Hemoglobin [Mass/volume] in Blood 03/19/2024 12:14:34 13.2 13.0-17.0 (g/dL) Final Hematocrit [Volume Fraction] of Blood by Automated count 03/19/2024 12:14:34 39.1 35.0-44.0 (%) Final MCV [Entitic volume] by Automated count 03/19/2024 12:14:34 94.9 81.0-96.0 (fL) Final MCH [Entitic mass] by Automated count 03/19/2024 12:14:34 32.0 28.0-33.0 (pg) Final MCHC [Mass/volume] by Automated count 03/19/2024 12:14:34 33.8 32.0-36.0 (g/dL) Final Erythrocyte distribution width [Ratio] by Automated count 03/19/2024 12:14:34 12.7 11.5-14.2 (%) Final Erythrocyte distribution width [Entitic volume] by Automated count 03/19/2024 12:14:34 44 Final Platelets [#/volume] in Blood by Automated count 03/19/2024 12:14:34 218 150-350 (K/uL) Final Platelet mean volume [Entitic volume] in Blood by Automated count 03/19/2024 12:14:34 8.5 Below low normal 9.0-12.2 (fL) Final Performing Location [facility] [address] [place] [address]
--- OUTSIDE RECORDS SUMMARY | 2024-03-23 14:49 | External Medical Summary | Continuity of Care Document ---
Author Name Unknown Organization [facility] [address] [place], [place] [id number] Care Team Providers Care Lead Database Administrator Name Role Phone Naomi Marcusth Primary Care Physicia n [phone] [id number] Date(s): 02/17/24 - 02/17/24 [facility] [address] [facility] [address], [address] [place] [phone] Discharge Disposition: Home or Self Care Attending [...] mg tablet once a week 4PETRO CHEMICALS Immunizations Given and Recorded Vaccine Date Status [...] 0, PRN: as needed for anxiety, Pharmacy: [id number] Start Date: 10/26/23 Status: Ordered Co Q-10 Start: 05/26/20 12:33:00 PM EDT, See Instructions, takes 2 capusles daily Start Date: 05/26/20 Status: Ordered Effexor 25 mg oral tablet Start: 12/28/23 10:48:00 AM EDT, 1 tab, PO, qhs, Disp# 30 tab, Refills: 4, Pharmacy: [facility] Start Date: 12/28/23 Status: Ordered Emla 2.5%-2.5% topical cream Start: 03/09/23 12:34:00 PM EDT, 1 appl, topical, ONCE, Disp# 30 g, Refills: 0, Pharmacy: [facility] Start Date: 03/09/23 Status: Ordered Fish Oil Start: 02/03/10 8:51:58 AM EDT, 500 mg =, PO, Daily, Refills: 0, current medication from another provider Start Date: 02/03/10 Status: Ordered ibuprofen 600 mg oral tablet Start: 12/04/10 2:23:00 PM EDT, 1 tab, PO, qid, Disp# 50 tab, Refills: 1, PRN: as needed for pain, Pharmacy: [facility] Start Date: 12/04/10 Status: Ordered Lomotil 2.5 mg-0.025 mg oral tablet Start: 12/22/23 5:01:00 PM EDT, 1 tab, PO, bid, Disp# 30 tab, Refills: 0, PRN: as needed for loose stool, Pharmacy: [facility] Start Date: 12/22/23 Status: Ordered loperamide 2 mg oral capsule Start: 10/26/23 2:49:00 PM EDT, 1 cap, PO, q6h, Disp# 30 cap, Refills: 1, Pharmacy: [id number] Start Date: 10/26/23 Status: Ordered loratadine [...] 1/2 tab as needed for palpitations., Pharmacy: [facility] Start Date: 11/28/23 Status: Ordered NAC Start: 12/13/22 2:23:00 PM EDT, NAC, See Instructions, 1 po daily Start Date: 12/13/22 Status: Ordered ondansetron 4 mg oral tablet Start: 07/25/23 12:16:00 PM EST, 1 tab, PO, bid, Disp# 50 tab, PRN: as needed for nausea/vomiting, Pharmacy: [facility] Start Date: 07/25/23 Status: Ordered Probiotic Formula Start: 09/13/16 9:20:00 AM EST, 1 cap, PO, Daily Start Date: 09/13/16 Status: Ordered Repatha SureClick 140 mg/mL subcutaneous solution Start: 05/26/21 1:59:00 PM EDT, subQ, [id number] Start Date: 05/26/21 Status: Ordered tamoxifen 10 mg oral tablet Start: 01/25/24 10:52:00 AM EDT, See Instructions, Disp# 45 tab, Refills: 4, 1 tab PO bid alternating with 1 po daily, Pharmacy: [facility] Start Date: 01/25/24 Status: Ordered Tylenol 500 mg oral tablet Start: 10/23/21 11:09:00 AM EST, 1,000 mg =, PO, q6h, PRN: as needed for pain Start Date: 10/23/21 Status: Ordered Vitamin D3 Start: 09/13/16 9:21:00 AM EST, 5,000 Int_Unit =, PO, Daily Start Date: 09/13/16 Status: Ordered Problem List Condition Confirmation Course Effective Dates Status H ealth Status Informant Allergy to multiple antibiotics Confirmed Active Anxiety Confirmed Active Vaginal atrophy Confirmed Active CAD in [place] artery Confirmed Active Cough Confirmed Active Diarrhea [...] appendix Confirmed Active Breast cancer Confirmed Active Lhes-Xthr-Aaux syndrome Confirmed Active Need for prophylactic vaccination and inoculation against influenza Confirmed Active Right elbow pain Confirmed Active Palpitations Confirmed Active Medicare annual wellness visit, subsequent Confirmed Active Post-nasal drip Confirmed Active Resection of ascending colon, cecum and terminal ileum 3 Confirmed Active Sling procedure of bladder neck Confirmed Active SVT (supraventricular tachycardia) 4 Confirmed Active Frequent unifocal PVCs Confirmed Active 1Added per [employer] C[employer] [id number] 02/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 4Added per [employer] [id number] 02/23/2023 Procedures Procedure Date Related Diagnosis Body [...] Sling 2008 Completed Osteochondroma, Right ring finger 2008 Completed Biopsy of breast, right 14 [...] in 5-10 years 12Sling 13Right ring finger [id number] right 15Done 2019 Results Radiology Reports * Exam Date Time Procedure Performing Provider Status 02/17/24 2:36 PM Echo TransTHORacic TTE Complete Aleena Nance; Final Notes: (Echo TransTHORacic TTE Complete) Reason For Exam: 68 YF iwh breast cancer on Trastuzumab - ef/gls Echo TransTHORacic TTE Complete Report Signatures Finalized by Dr. Tammy Dan DO on 02/17/2024 05:22 PM [place] Act 112: No-No further action needed Summary 1. Limited 2D, limited spectral Doppler and LV strain imaging performed to evaluate LV function while undergoing cancer treatment. 2. Normal left ventricular size and systolic function with no regional wall motion abnormalities. 3. No left ventricular hypertrophy. 4. EF as calculated by Biplane Simpsons method 62 %. 5. Grade I diastolic dysfunction of the left ventricle (impaired relaxation pattern). 6. Normal right ventricular size with reduced systolic function. 7. Mildly dilated left atrium size. 8. Normal right atrial size. 9. Mitral annular calcification. 10. The aortic valve is trileaflet and unremarkable by two-dimensional, color flow and Doppler interrogation. 11. Mild tricuspid regurgitation. 12. Estimated pulmonary arterial systolic pressure is 25 mmHg. 13. Structurally unremarkable pulmonic valve with no significant flow abnormalities. Recommendations * Compared to the previous study from 11/07/23, there is no significant change. Patient Info Name: RADAMES CORDOVA Age: 69 years : 1955 Gender: Female Ht: 160 cm Wt: 68 kg BSA: 1.76 m2 BP: 116 / 56 mmHg Exam Date: 02/17/2024 2:03 PM Exam Location: [facility] Patient Status: Outpatient Staff Ordering Physician: Michelle Hebert Harvesting Manager: Aleena Nance RDCS, RVT Attending Physician: Estefanía Watkins Study Info CPT 71123 - Indications - [facility] [place], on Herceptin Procedure(s) * A complete two-dimensional, color flow and Doppler transthoracic echocardiogram was performed. Exam Type: Cardiac Basic Left Ventricle Limited 2D, limited spectral Doppler and LV strain imaging performed to evaluate LV function while undergoing cancer treatment. Normal left ventricular size and systolic function with no regional wall motion abnormalities. No left ventricular hypertrophy. EF as calculated by Biplane Simpsons method 62 %. Grade I diastolic dysfunction of the left ventricle (impaired relaxation pattern). Right Ventricle Normal right ventricular size with reduced systolic function. Left Atrium Mildly dilated left atrium size. Right Atrium Normal right atrial size. Atrial Septum The interatrial septum is unremarkable. Aortic Valve The aortic valve is trileaflet and unremarkable by two-dimensional, color flow and Doppler interrogation. Pulmonic Valve Structurally unremarkable pulmonic valve with no significant flow abnormalities. Mitral Valve Mitral annular calcification. Tricuspid Valve Mild tricuspid regurgitation. Estimated pulmonary arterial systolic pressure is 25 mmHg. Inferior Vena Cava Normal IVC size and inspiratory collapse. Estimated right atrial pressure is 3 mmHg. Pulmonic Valve Name Value Normal RVOT Doppler RVOT Peak Velocity 0.64 m/s Mitral Valve Name Value Normal MV Doppler MV PHT 40 ms MV Diastolic Function MV E Peak Velocity 1.08 m/s <=0.50 MV A Peak Velocity 0.87 m/s MV E/A 1.24 <=0.80 MV Decel Time 137 ms MV Annular TDI MV Septal s' Velocity 7.89 cm/s MV Septal e' Velocity 7.80 cm/s >=7.00 MV E/e' (Septal) 13.8 <=8.0 MV Lateral s' Velocity 9.39 cm/s MV Lateral e' Velocity 10.20 cm/s >=10.00 MV E/e' (Lateral) 10.59 <=8.00 MV e' Average 9.00 MV E/e' (Average) 12.22 <=14.00 Tricuspid Valve Name Value Normal Estimated PAP/RSVP RA Pressure 3 mmHg <=5 PA Systolic Pressure 25 mmHg <40 TV Diastolic Function TV E Peak Velocity 0.45 m/s TV A Peak Velocity 0.38 m/s TV E/A 1.17 0.80-2.00 Ventricles Name Value Normal LV Fractional Shortening/Ejection Fraction 2D/MM LV EF (BP MOD) 62 % 58-69 Final Signed by:DO Dan Michelle L Signed (Electronic Signature):02/17/2024 2:03 p Social History Social History Type Response Tobacco Former smoker, Cigar ettes, 0.5 per day. 35 year(s). Started age 22 Years. Stopped age 57 Years. Smoking Status Former Smoker, quit > 1 yr Sex Female Patient Care team information Care Team Personnel Name: DO Martinez Alison L Position: Physician - Radiologist Member Role: Lifetime Relationship Address: Address: [address] [place] [id number] [place] Name: Matias Tomlin Kimberly Position: Pharmacist BCMA Member Role: Pharmacy - Lifetime Address: Address: [address] [address] Name: DO Marcus Gretchen Elizabeth Position: Physician - Family Med Member Role: Primary Care Provider Address: Address: [address] [place] [address] [place] Name: MD Lipscomb Kristine L Position: Physician - Surgery Oncology Member Role: Lifetime Relationship Address: Address: [address] [place] [address] Name: Lela Torre Position: HIS Supervisor_P Member Role: HIS Lifetime Care Team Related Persons Name: KARL MORRISON Address: [address] [place] [id number] Name: LOPEZ CORDOVA Address: [place] Address: home [address] [facility] [place] [id number] Name: LOPEZ CORDOVA Address: home [address] [facility], [place] [id number]
--- OUTSIDE RECORDS SUMMARY | 2024-03-23 14:49 | External Medical Summary | Summary of Care ---
Author Name Unknown Organization [facility] Address [address] [place] [address] Phone [phone] Care Team Providers Care Spray Unit Feeder Name Role Phone Suyapa Card Primary Care Provid er Encounter Details Date Type Department Care Team (Late st Contact Info) Description 03/11/2024 Documentation Otolaryngology/Head & Neck/Facial Plastic Surgery [address] [place] [address] Blayne Ozuna MD [address] [place] [address] Allergies Active Allergy Reactions Criticality Noted Date Comments Adhesive Tape 12/11/2004 Bactrim High 12/29/2009 Fugue state Ciprofloxacin 06/02/2021 Tendon pain Penicillins 07/29/1997 hives Petroleum Distillate 07/01/2010 PETROL chemicals Statins 06/02/2021 Muscle pain Sulfa Antibiotics 06/26/2013 documented as of this encounter (statuses as of 03/11/2024) Medications Medication Sig Dispensed Refills Start Date End Date Status PROBIOTIC PRODUCT PO CAPSIndications:Rout ine gynecological examination otc 1 Cap 1 02/23/2010 Active LUTEIN-ZEAXANTHIN 15-0.7 MG PO CAPS one daily Active VITAMIN B COMPLEX PO TABS one daily Active ASPIRIN EC 81 MG PO TBEC one daily Active Cholecalciferol (VITAMIN D3) 5000 UNITS Tablet One tablet daily Active [place]-3 Fatty Acids (FISH OIL DOUBLE STRENGTH) 1200 MG CAPS Take 2,000 mg by mouth daily. Active Estradiol 12.5 MG PLLT Apply as directed. Active Testosterone 12.5 MG PLLT Apply as directed. Active progesterone micronized (PROMETRIUM) 100 MG Capsule Take 100 mg by mouth daily. Active Magnesium Oxide 400 MG Tablet Take 1 Tab by mouth daily. 30 Tab 5 11/28/2015 Active atenolol (TENORMIN) 25 MG Tablet Take 1/2 to 1 tablet as needed for palpitations 30 Tab 3 04/30/2016 Active Additional Information Patient not taking.Reported on 06/02/2021 LORAzepam (ATIVAN) 0.5 MG TabletIndications:An xiety state (1) daily as needed for anxiety 30 Tab 3 07/30/2016 Active Metoprolol Tartrate 25 MG Oral Tablet (Lopressor)Indicatio ns:at bedtime Take 0.5 Tablets by mouth in the morning. Active Vitamin E 200 UNIT Oral Capsule Take 300 Units by mouth daily. Active rosuvastatin 2.5 mg OR TABSIndications:1 x a week of tuesday Take by mouth every afternoon. Indications: 1 x a week of tuesday Active Repatha 140 MG/ML Subcutaneous Solution Prefilled Syringe (Evolocumab)Indicati ons:every 14 days Inject under the skin. Indications: every 14 days Active Ibuprofen 200 MG Oral Capsule (Advil)Indications:a s needed Take 1 Capsule by mouth every 4 hours as needed. Active Fiber 625 MG Oral Tablet Take by mouth. Active Loratadine 10 MG Oral Tablet (Claritin)Indication s:as needed Take 1 Tablet by mouth in the morning. Active Phenazopyridine HCl 200 MG Oral Tablet (Pyridium)Indication s:Acute UTI Take by mouth 1 Tablet as needed in the morning AND 1 Tablet as needed at noon AND 1 Tablet as needed in the evening for Pain, Moderate. After meals for pain with urination. 6 Tablet 05/16/2022 Active Additional Information Patient not taking.Reported on 02/13/2024 Coenzyme Q10 30 MG Oral Capsule Active Lomotil 2.5-0.025 MG Oral Tablet Start: 12/22/23 5:01:00 PM EDT, 1 tab, PO, bid, Disp# 30 tab, Refills: 0, PRN: as needed for loose stool, Pharmacy: [facility] 05/11/2023 Active Fluticasone Propionate 50 MCG/ACT Nasal Suspension 2 Sprays. 03/06/2020 Active Lidocaine 5 % External Cream EMLA CREAM Active Loperamide HCl 2 MG Oral Capsule (Imodium) 1 Capsule. 10/26/2023 Active Mag Glycinate 100 MG Oral Tablet Take 200 mg by mouth in the morning. Active Venlafaxine HCl ER 37.5 MG Oral Capsule Extended Release 24 Hour (Effexor XR) Take 25 mg by mouth. Pt stated that she takes a 25 mg dose Active Kanjinti 150 MG Intravenous Solution Reconstituted (Trastuzumab-anns) Administer intravenously. 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 Diverticulitis of colon 08/31/2016 Overview: 2 episodes Non-sustained ventricular tachycardia 11/21/2014 SVT (supraventricular tachycardia) 11/21/2014 PVC (premature ventricular contraction) 08/16/19 15 Pain of left foot 03/26/2013 Bronchitis 08/16/2012 Family history of ischemic heart disease 010 Spasm of muscle 10/13/2009 Benign neoplasm of colon 09/27/2006 Overview: hyperplastic tissue-repeat colonoscopy in 3 years ADVANCE DIRECTIVE INFORMATION 08/05/2006 Overview: Yes, Patient instructed to provide copy of advance directive for provider to review and to be scanned into Electronic Medical Record RAGHAVENDRA TRINO SOFT TISSUE ARM 12/16/2004 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 Cervicalgia 07/28/2002 PAIN-SHOULDER, LEFT 07/28/2002 Spasm of muscle 07/28/2002 NEUROPATHY, SECONDARY SENSORY, LEFT ARM 07/28/20 02 Family history of other cardiovascular diseases 03/20/2002 Overview: ICD-10 update of inactive term documented as of this encounter (statuses as of 03/11/2024) Immunizations Name Administration Dates Next Due Seasonal Influenza, Split, IIV3, With Preserve, Inj 05/18/2013,08/26/2012 TDAP (age 10 and older)(Boostrix) 05/18/2013 documented as of this encounter Social History Tobacco Use Types Packs/Day Years Used Date Smoking Tobacco: Former Cigarettes 0.5 18 0 10/11/1988 - 10/11/2006 Smokeless Tobacco: Never Comments:Started smoking age 21, off/on smoking 18 yrs . Quit 09-15-05, started again 03-20. Working on d/c since 08-21. Quit 10-12-06 Alcohol Use Standard Drinks/Week Comments Yes 0 (1 standard drink = 0.6 oz pur e alcohol) 5/month Utilities Answer Date Recorded Do you have trouble paying y our heating, water, or electric bill? (Adult - for ages 18 years and over) Not on file 01/31/2024 Is your family able to pay t he heat, water, or electric bill? (Household - for ages 0-17 years) Not on file 01/31/2024 Does your family have access to good internet? (Household - for ages 0-17 years) Not on file 01/31/2024 Social Connections Answer Date Recorded How often do you feel lonely or isolated from those around you? (Adult - for ages 18 years and over) Not on file 01/31/2024 Sex and Gender Information Value Date Recorded Sex Assigned at Not on file Gender Identity Not on file Sexual Orientation Not on file Job Start Date Occupation Industry Not on file Not on file Not on file documented as of this encounter Progress Notes * Blayne Ozuna MD - 03/11/2024 10:21 AM EDT IMPRESSION: 1. No internal auditory canal mass or abnormal enhancement. 2. No acute intracranial abnormality. Noted Blayne Ozuna MD 03/11/2024 10:21 AM documented in this encounter Plan of Treatment Scheduled Procedures Name Priority Associated Diagnoses Date/Ti me COLONOSCOPY FLEXIBLE PROXIMA L DIAGNOSTIC Recall History of colonic polyps Health Maintenance Due Date Last Done Comments Hepatitis C Screening 01/27/1972 Cologuard 1999 Fecal Occult Blood Test 1999 Sigmoidoscopy 1999 Depression Screening 03/31/2016 03/31/2015 Lipid Panel 04/04/2018 04/04/2013, 02/13, 12/15/2008, Additional history exists DXA Scan 11/13/2021 11/13/2014, 11/13/2014 COVID-19 Vaccine (3 - 2022- season) 2023 10/02/2020, 09/05/2020 DTaP,Tdap,and Td Vaccines (2 - Td or Tdap) 05/18/2023 05/18/2013, 02/08/2003 Mammogram 02/19/2024 02/18/2023, 12/2022, 02/16/2023, Additional history exists Influenza Vaccine (FLU shot) (#1) 2024 05/18/2013, 08/26/2012, 07/08/2003 Colonoscopy 06/09/2026 06/09/2021, 05/16, 10/31/2015, Additional history exists Colorectal Cancer Screening 06/09/2026 Zoster Vaccines Completed 10/08/2019, 03/22/2019 Pneumococcal Vaccine: 65+ Years Completed 03/11/2021, 03/22/2019, 03/20/2002 RETIRED - COLONOSCOPY-EVERY 5 YRS AGES 18-100 Discontinued 06/09/2021, 06/09/2021, 10/31/2015, Additional history exists HPV (Gardasil) Vaccine Aged Out No lo nger eligible based on patient's age to complete this topic Hepatitis B Vaccine Aged Out No longe r eligible based on patient's age to complete this topic MENINGOCOCCAL (MENACTRA/MENVEO) Aged Out No longer eligible based on patient's age to complete this topic documented as of this encounter Medical Devices Not on filedocumented as of this encounter Care Teams Spray Unit Feeder Relationship Specialty Start Date End Date Suyapa Card CRNP [address] [place] [address] PCP - General Nurse Practitioner 06/09/21 documented as of this encounter
--- OUTSIDE RECORDS SUMMARY | 2024-03-23 14:49 | External Medical Summary | Continuity of Care Document ---
Author Name Unknown Organization [facility] Address [address] [place] [address] [place] [id number] Care Team Providers Care Continuous Linter Drier Operator Name Role Phone Naomi Marcus Primary Care Physicia n [phone] Encounter [facility] [id number] Date(s): 03/07/24 - 03/07/24 [facility] [id number], [place] [address]- [phone] Encounter Diagnosis Breast cancer in female(Discharge Diagnosis) - 03/07/24 Discharge Disposition: Home or Self Care Attending Physician: MD June, Estefanía Coto Referring Physician: DO Marcus Gretchen Elizabeth Allergies, Adverse Reactions, Alerts Substance Criticality Severity Reaction Reaction Severity Status penicillin Unknown Active simvastatin severe muscle p ain & tension Active sulfa drugs rash, hives, hallucinations Active Cipro tachycardia tendonitis Active Macrobid 1 lower abdominal pain Active [...] Td (Adult) 02/08/03 Re corded 1Result Comment: [facility] Medications aspirin 81 mg oral capsule Start: 12/10/21 1:41:00 PM EDT, 1 cap, PO, Daily, Disp# 100 cap, Refills: 3, other Start Date: 12/10/21 Status: Ordered Ativan 0.5 mg oral tablet Start: 10/26/23 2:51:00 PM EDT, 1 tab, PO, Daily, Disp# 30 tab, Refills: 0, PRN: as needed for anxiety, Pharmacy: [id number] Start Date: 10/26/23 Status: Ordered Co Q-10 Start: 05/26/20 12:33:00 PM EDT, See Instructions, takes 2 capusles daily Start Date: 05/26/20 Status: Ordered Effexor 25 mg oral tablet Start: 12/28/23 10:48:00 AM EDT, 1 tab, PO, qhs, Disp# 30 tab, Refills: 4, Pharmacy: [facility] Start Date: 12/28/23 Status: Ordered Emla 2.5%-2.5% topical cream Start: 03/09/23 12:34:00 PM EDT, 1 appl, topical, ONCE, Disp# 30 g, Refills: 0, Pharmacy: [facility] Start Date: 03/09/23 Status: Ordered Fish Oil Start: 02/03/10 8:51:58 AM EDT, 500 mg =, PO, Daily, Refills: 0, current medication from another provider Start Date: 02/03/10 Status: Ordered ibuprofen 600 mg oral tablet Start: 12/04/10 2:23:00 PM EDT, 1 tab, PO, qid, Disp# 50 tab, Refills: 1, PRN: as needed for pain, [facility]acy: [facility] Start Date: 12/04/10 Status: Ordered Lomotil 2.5 mg-0.025 mg oral tablet Start: 12/22/23 5:01:00 PM EDT, 1 tab, PO, bid, Disp# 30 tab, Refills: 0, PRN: as needed for loose stool, Pharmacy: [facility] Start Date: 12/22/23 Status: Ordered loperamide 2 mg oral capsule Start: 10/26/23 2:49:00 PM EDT, 1 cap, PO, q6h, Disp# 30 cap, Refills: 1, Pharmacy: [id number] Start Date: 10/26/23 Status: Ordered loratadine [...] 1/2 tab as needed for palpitations., Pharmacy: [facility] Start Date: 11/28/23 Status: Ordered multivitamin Start: 03/07/24 10:32:00 AM EDT, 1 tab, PO, Daily Start Date: 03/07/24 Status: Ordered NAC Start: 12/13/22 2:23:00 PM EDT, NAC, See Instructions, 1 po daily Start Date: 12/13/22 Status: Ordered ondansetron 4 mg oral tablet Start: 07/25/23 12:16:00 PM EST, 1 tab, PO, bid, Disp# 50 tab, PRN: as needed for nausea/vomiting, Pharmacy: [facility] Start Date: 07/25/23 Status: Ordered Probiotic Formula Start: 09/13/16 9:20:00 AM EST, 1 cap, PO, Daily Start Date: 09/13/16 Status: Ordered Repatha SureClick 140 mg/mL subcutaneous solution Start: 05/26/21 1:59:00 PM EDT, subQ, [id number] Start Date: 05/26/21 Status: Ordered tamoxifen 10 mg oral tablet Start: 01/25/24 10:52:00 AM EDT, See Instructions, Disp# 45 tab, Refills: 4, 1 tab PO bid alternating with 1 po daily, Pharmacy: [facility] Start Date: 01/25/24 Status: Ordered Tylenol 500 mg oral tablet Start: 10/23/21 11:09:00 AM EST, 1,000 mg =, PO, q6h, PRN: as needed for pain Start Date: 10/23/21 Status: Ordered Vitamin D3 Start: 09/13/16 9:21:00 AM EST, 5,000 Int_Unit =, PO, Daily Start Date: 09/13/16 Status: Ordered Mental Status 03/07/24 Barriers to Learning one year Vision imp airment, Other: glasses Mandatory Health Literacy Documentation Yes Health Literacy Communication Barriers N ever Primary Language Montserratian Problem List Condition Confirmation Course Effective Dates Status H ealth Status Informant Allergy to multiple antibiotics Confirmed Active Anxiety Confirmed Active Vaginal atrophy Confirmed Active 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 Cough Confirmed Active Diarrhea [...] appendix Confirmed Active Breast cancer Confirmed Active Fmow-Dnxn-Lyrd syndrome Confirmed Active Need for prophylactic vaccination and inoculation against influenza Confirmed Active Right elbow pain Confirmed Active Palpitations Confirmed Active Medicare annual wellness visit, subsequent Confirmed Active Post-nasal drip Confirmed Active Resection of ascending colon, cecum and terminal ileum 3 Confirmed Active Sling procedure of bladder neck Confirmed Active SVT (supraventricular tachycardia) 4 Confirmed Active Frequent unifocal PVCs Confirmed Active 1Added per Sorter Lumber Straightener [id number] 02/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 4Added per Sorter Lumber Straightener [id number] 02/23/2023 Diagnosis Diagnosis Type Effective Dates Health Status Cl inical Service Informant Breast cancer in female [...] in 5-10 years 12Sling 13Right ring finger [id number] right 15Done 2019 Vital Signs Most recent to oldest [Reference Range]: 1 Height 161.4 cm (03/07/24 10:32 AM) Patient Weight 69.3 kg (03/07/24 10:32 AM) Body Mass Index 26.6 kg/m2 (03/07/24 10:32 AM) Temperature [36.5-37.9 DegC] 36.3 DegC *LOW* (03/07/24 10:32 AM) Heart Rate 62 bpm (03/07/24 10:32 AM) Respiratory Rate 16 br/min (03/07/24 10:32 AM) Blood Pressure 125/64mmHg (03/07/24 10:32 AM) Cuff Pulse Pressure 61 mmHg (03/07/24 10:32 AM) BP Location # 1 Left Arm (03/07/24 10:32 AM) Social History Social History Type Response Tobacco Former smoker, Cigar ettes, 0.5 per day. 35 year(s). Started age 22 Years. Stopped age 57 Years. Smoking Status Former Smoker, quit > 1 yr Sex Female Sex Representation Female (finding) Patient Care team information Care Team Personnel Name: DO Martinez Alison L Position: Physician - Radiologist Member Role: Lifetime Relationship Address: [address] [place] [id number] [place] Name: Matias Tomlin Kimberly Position: Pharmacist BCMA Member Role: Pharmacy - Lifetime Address: [address] [address] [place] Name: DO Marcus Gretchen Elizabeth Position: Physician - Family Med Member Role: Primary Care Provider Address: [address] [place] [address], [place] [address] [place] Name: MD Lipscomb Kristine L Position: Physician - Surgery Oncology Member Role: Lifetime Relationship Address: [address] [facility] [address] [place] [address] Name: Lela Torre Position: HIS Supervisor_P Member Role: HIS Lifetime Care Team Related Persons Name: KARL MORRISON Name: LOPEZ CORDOVA Name: LOPEZ CORDOVA
--- OUTSIDE RECORDS SUMMARY | 2024-03-23 14:50 | External Medical Summary | Continuity of Care Document ---
Author Name Unknown Organization [facility] Address [address] [place] [id number] Care Team Providers Care Covering Machine Operator Name Role Phone Naomi Marcus Primary Care Physicia n [phone] Encounter [facility] [id number] Date(s): 12/14/23 - 12/14/23 [facility] [address] [place] [id number]- [phone] Encounter Diagnosis Breast cancer(Discharge Diagnosis) - 12/14/23 Discharge Disposition: Home or Self Care Attending Physician: MD Watkins Monali K Referring Physician: MD June, Estefanía Coto Allergies, Adverse Reactions, Alerts Substance Reaction Severity Status penicillin Unknown Active simvastatin severe muscle pain & tension Active sulfa drugs rash, hives, [...] once a week 4PETRO CHEMICALS Functional Status 12/14/23 Gait Steady Immunizations Given and Recorded Vaccine [...] Td (Adult) 02/08/03 Re corded 1Result Comment: [facility] Medications aspirin 81 mg oral capsule Start: 12/10/21 13:41:00 EDT, 1 cap, PO, Daily, Disp# 100 cap, Refills: 3, other Start Date: 12/10/21 Status: Ordered Ativan 0.5 mg oral tablet Start: 10/26/23 14:51:00 EDT, 1 tab, PO, Daily, Disp# 30 tab, Refills: 0, PRN: as needed for anxiety, Pharmacy: [id number] Start Date: 10/26/23 Status: Ordered Co Q-10 Start: 05/26/20 12:33:00 EDT, See Instructions, takes 2 capusles daily Start Date: 05/26/20 Status: Ordered Effexor 25 mg oral tablet Start: 08/31/23 10:55:00 EST, 1 tab, PO, qhs, Disp# 30 tab, Refills: 4, Pharmacy: [facility] Start Date: 08/31/23 Status: Ordered Emla 2.5%-2.5% topical cream Start: 03/09/23 12:34:00 EDT, 1 appl, topical, ONCE, Disp# 30 g, Refills: 0, Pharmacy: [facility] Start Date: 03/09/23 Status: Ordered Fish Oil Start: 02/03/10 8:51:58 EDT, 500 mg =, PO, Daily, Refills: 0, current medication from another provider Start Date: 02/03/10 Status: Ordered ibuprofen 600 mg oral tablet Start: 12/04/10 14:23:00, 1 tab, PO, qid, Disp# 50 tab, Refills: 1, PRN: as needed for pain, Pharmacy: [facility] Start Date: 12/04/10 Status: Ordered Lomotil 2.5 mg-0.025 mg oral tablet Start: 05/11/23 9:39:00 EDT, 1 tab, PO, bid, Disp# 30 tab, PRN: as needed for loose stool, Pharmacy: [facility] Start Date: 05/11/23 Status: Ordered loperamide 2 mg oral capsule Start: 10/26/23 14:49:00 EDT, 1 cap, PO, q6h, Disp# 30 cap, Refills: 1, Pharmacy: [id number] Start Date: 10/26/23 Status: Ordered loratadine 10 mg oral tablet Start: 03/01/19 15:02:00 EDT, 1 tab, PO, q48h, PRN: as needed for allergy symptoms Start Date: 03/01/19 Status: Ordered magnesium 6 lycinate Start: 09/13/16 9:19:00 EST, magnesium 6 lycinate, 500 mg daily Start Date: 09/13/16 Status: Ordered Metoprolol Succinate ER 25 mg oral tablet, extended release Start: 11/28/23 8:57:00 EDT, See Instructions, Disp# 90 tab, Refills: 3, TAKE 1/2 TABLET BY MOUTH ONCE DAILY may take an additional 1/2 tab as needed for palpitations., Pharmacy: [facility] Start Date: 11/28/23 Status: Ordered NAC Start: 12/13/22 14:23:00 EDT, NAC, See Instructions, 1 po daily Start Date: 12/13/22 Status: Ordered ondansetron 4 mg oral tablet Start: 07/25/23 12:16:00 EST, 1 tab, PO, bid, Disp# 50 tab, PRN: as needed for nausea/vomiting, Pharmacy: [facility] Start Date: 07/25/23 Status: Ordered Probiotic Formula Start: 09/13/16 9:20:00 EST, 1 cap, PO, Daily Start Date: 09/13/16 Status: Ordered Repatha SureClick 140 mg/mL subcutaneous solution Start: 05/26/21 13:59:00 EDT, subQ, [id number] Start Date: 05/26/21 Status: Ordered tamoxifen 10 mg oral tablet Start: 08/31/23 10:53:00 EST, 1 tab, PO, Daily, Disp# 60 tab, Refills: 4, Pharmacy: [facility] Start Date: 08/31/23 Status: Ordered Tylenol 500 mg oral tablet Start: 10/23/21 11:09:00 EST, 1,000 mg =, PO, q6h, PRN: as needed for pain Start Date: 10/23/21 Status: Ordered Vitamin D3 Start: 09/13/16 9:21:00, 5,000 Int_Unit =, PO, Daily Start Date: 09/13/16 Status: Ordered Problem List Condition Confirmation Course Effective Dates Status H ealth Status Informant Allergy to multiple antibiotics Confirmed Active Anxiety Confirmed Active Vaginal atrophy Confirmed Active CAD in navajo artery Confirmed Active Cough Confirmed Active Diarrhea [...] appendix Confirmed Active Breast cancer Confirmed Active Ndyo-Optp-Axoy syndrome Confirmed Active Need for prophylactic vaccination and inoculation against influenza Confirmed Active Right elbow pain Confirmed Active Palpitations Confirmed Active Medicare annual wellness visit, subsequent Confirmed Active Post-nasal drip Confirmed Active Resection of ascending colon, cecum and terminal ileum 3 Confirmed Active Sling procedure of bladder neck Confirmed Active SVT (supraventricular tachycardia) 4 Confirmed Active Frequent unifocal PVCs Confirmed Active 1Added per Switch Operator [id number] 02/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 4Added per Switch Operator [id number] 02/23/2023 Diagnosis Diagnosis Type Effective Dates Health Status Cl inical Service Informant Breast cancer Discharge Diagnosis 12/14/23 Non-Specified Procedures Procedure Date Related Diagnosis Body [...] in 5-10 years 12Sling 13Right ring finger [id number] right 15Done 2019 Vital Signs Most recent to oldest [Reference Range]: 1 2 Patient Weight 69.3 kg (12/14/23 2:34 PM) Temperature [36.5-37.9 DegC] 36.3 DegC *LOW* (12/14/23 3:58 PM) 36.2 DegC *LOW* (12/14/23 2:34 PM) Heart Rate 69 bpm (12/14/23 3:58 PM) 65 bpm (12/14/23 2:34 PM) Respiratory Rate 18 br/min (12/14/23 3:58 PM) 18 br/min (12/14/23 2:34 PM) Blood Pressure 104/46mmHg (12/14/23 3:58 PM) 109/45mmHg (12/14/23 2:34 PM) BP Location # 1 Left Arm (12/14/23 3:58 PM) Left Arm (12/14/23 2:34 PM) Social History Social History Type Response Tobacco Former smoker, Cigar ettes, 0.5 per day. 35 year(s). Started age 22 Years. Stopped age 57 Years. Smoking Status Former Smoker, quit > 1 yr Sex Female Patient Care team information Care Team Personnel Name: DO Martinez Alison L Position: Physician - Radiologist Member Role: Lifetime Relationship Address: Address: [address] [place] [address] Name: Matias Tomlin Kimberly Position: Pharmacist BCMA Member Role: Pharmacy - Lifetime Address: Address: [facility] [address] [place] [address] [place] Name: DO Marcus Gretchen Elizabeth Position: Physician - Family Med Member Role: Primary Care Provider Address: Address: [address] [place] [address], [place] [address] [place] Name: MD Lipscomb Kristine L Position: Physician - Surgery Oncology Member Role: Lifetime Relationship Address: Address: [address] [place] [address] [place] Name: Lela Torre Position: HIS Supervisor_P Member Role: HIS Lifetime Care Team Related Persons Name: KARL MORRISON Address: home [address] [place] [address] [place] [phone] Name: LOPEZ CORDOVA Address: [place] Address: home [address] [place] [place] [phone] Name: ART LOPEZ Fitzpatrick Address: home [address] [place] [place] [id number]
--- OUTSIDE RECORDS SUMMARY | 2024-03-23 14:50 | External Medical Summary | Summary of Care ---
Author Name Unknown Organization [facility] Address [address] [place] [address] Phone [phone] Care Team Providers Care Fishing Tool Supervisor Name Role Phone Suyapa Card Primary Care Provid er Reason for Referral * Precert (Within 10 days (routine)) - Pending Review Specialty Diagnoses / Procedures Referred By Fernando t Referred To Contact Radiology Diagnoses Vertigo Tinnitus, subjective, right Asymmetrical sensorineural hearing loss Procedures MRI INTERNAL AUDITORY CANAL W WO CONTRAST Blayne Ozuna MD [address] [place] [address] Referral ID Status Reason Start Date Expiration Date V isits Requested Visits Authorized [id number] Pending Review 02/13/2024 999 999 Reason for Visit * Reason Comments NEW PATIENT Pt stated that she h as had tinnitus right ear, and 'after chemo it has gotten worse', vertigo, and migraines Encounter Details Date Type Department Care Team (Latest Contact Info) Description 02/13/2024 10:00 AM EDT Office Visit Otolaryngology/Head & Neck/Facial Plastic Surgery [address] [place] [address] Blayne Ozuna MD [address] [place] [address] Vertigo*; Tinnitus, subjective, right; Asymmetrical sensorineural hearing loss Allergies Active Allergy Reactions Criticality Noted Date Comments Adhesive Tape 12/11/2004 Bactrim High 12/29/2009 Fugue state Ciprofloxacin 06/02/2021 Tendon pain Penicillins 07/29/1997 hives Petroleum Distillate 07/01/2010 PETROL chemicals Statins 06/02/2021 Muscle pain Sulfa Antibiotics 06/26/2013 documented as of this encounter (statuses as of 02/13/2024) Medications Medication Sig Dispensed Refills Start Date End Date Status PROBIOTIC PRODUCT PO CAPSIndications:Rout ine gynecological examination otc 1 Cap 1 02/23/2010 Active LUTEIN-ZEAXANTHIN 15-0.7 MG PO CAPS one daily Active VITAMIN B COMPLEX PO TABS one daily Active ASPIRIN EC 81 MG PO TBEC one daily Active Cholecalciferol (VITAMIN D3) 5000 UNITS Tablet One tablet daily Active [place]-3 Fatty Acids (FISH OIL DOUBLE STRENGTH) 1200 [...] PRN: as needed for loose stool, Pharmacy: [facility] 05/11/2023 Active Fluticasone Propionate 50 MCG/ACT Nasal [...] bid alternating with 1 po daily, Pharmacy: [facility] 08/31/2023 Active documented as of this encounter (statuses as of 02/13/2024) Active Problems Problem Noted Date Diagnosed Date [...] as of this encounter (statuses as of 02/13/2024) Immunizations Name Administration Dates Next Due Seasonal [...] on file documented as of this encounter Last Filed Vital Signs Vital Sign Reading Time Taken Comments Blood Pressure 106/62 02/13/2024 9:59 AM EDT Pulse 71 02/13/2024 9:59 AM EDT Temperature 36.1 C (97 F) 02/13/2024 9:59 AM EDT Respiratory Rate - - Oxygen Saturation - - Inhaled Oxygen Concentration - - Weight 68.3 kg (150 lb 9.6 oz) 02/13/2024 9:59 A M EDT Height 161.3 cm (5' 3.5") 02/13/2024 9:59 AM EDT Body Mass Index 26.26 02/13/2024 9:59 AM EDT documented in this encounter Progress Notes * Ector Puentes MD - 02/13/2024 10:07 AM EDT Images from the original note were not included. Department of Otolaryngology - Head and Neck Surgery [place] [address] 02/13/2024 10:07 AM CC: Tinnitus, vertigo, and aural fullness History of Present Illness: Estelita Chow is a 69 year old woman seen at the request of TERRI Salas. She has intermittent vertigo. Often associated with weather. Happens a few times per year. It is not positional. Typically lasts one day. 2-3 attacks per year. Last was in September. She has had non-pulsatile right sided tinnitus for several years. Gets louder throughout the day. She is noise sensitive. The aural fullness is worse during her seasonal allergy attacks. Often but not always correlates with tinnitus. She endorses a mild hearing loss slowly progressive over the past several years. She completed chemotherapy including taxol for breast cancer in May 2024 which made her tinnitus worse. Her attacks are sometimes associated with visual changes, but typically the vision changes happen independent of ear symptoms. Describes a prism obstructing her vision. Deafness, Tinnitus, Vertigo, Ear drainage, Otalgia, Taste disturbance, Facial nerve palsy Patient Active Problem List Diagnosis Family history of other cardiovascular diseases Cervicalgia PAIN-SHOULDER, LEFT Spasm of muscle NEUROPATHY, SECONDARY SENSORY, LEFT ARM ADRENAL ADENOMA RAGHAVENDRA TRINO SOFT TISSUE ARM ADVANCE DIRECTIVE INFORMATION Benign neoplasm of colon Spasm of muscle Family history of ischemic heart disease Bronchitis Pain of left foot PVC (premature ventricular contraction) Non-sustained ventricular tachycardia (HCC) SVT (supraventricular tachycardia) (HCC) Carcinoid tumor of appendix, benign Diverticulitis of colon Past Medical History: Diagnosis Date Benign neoplasm of colon 09/27/06 hyperplastic tissue-repeat colonoscopy in 3 years Malignant carcinoid tumor of appendix (HCC) 2008 OTHER OCCAS PACs Past Surgical History: Procedure Laterality Date ARTHROCENT ASP AND/OR INJ SMALL JX /BURSA W/O US 1970 (3) ganglions- left foot BIOPSY OF BREAST, OPEN 1990 right - negative BIOPSY OF FINGER JOINT LINING 1994 right third finger: biopsy and graft- Dr. Wills CERVIX LESION W/WO FULGURATIN,BIOPSY/REMOVE 1991 cervical polypectomy COLONOSCOPY, DIAGNOSTIC (RECTUM) 07/16/2010 diverticulosis, patent functional end to end ileo colonic anastamosis repeat in 5-10 years COLONOSCOPY, DIAGNOSTIC (RECTUM) 10/31/2015 diverticulosis, repeat 5 yrs/COLONOSCOPY FLEXIBLE PROXIMAL DIAGNOSTIC performed by Bailey Castro DO at [facility] COLONOSCOPY, DIAGNOSTIC (RECTUM) N/A 06/09/2021 patent end to side ileo-colonic anastomosis/diverticulosis sigmoid colon/recall 5 years/COLONOSCOPYFLEXIBLE PROXIMAL DIAGNOSTIC performed by Bailey Castro DO at [facility] COLONOSCOPY, REMOVE LESION 09/27/2006 (3) polyps- repeat in 3 years INFORMATION 10/2010 at [facility] attemtped robotic laproscopic surgery for hysterectomy , but failed and completed vaginal hysterectomy and right overy - LAPAROSCOPY;APPENDECTOMY 12/2008 OTHER (INFORMATION) 12/2008 miduretheral sling w tension free vaginal tape OTHER (INFORMATION) right hemicolectomy PARTIAL REMOVAL OF COLON 01/2009 PARTIAL REMOVAL OF COLON REALIGNMENT OF HAND 1996 right third finger: reconstruction, tendon, graft,etc- Dr. Carver REMOVAL OF OVARY/OVIDUCT(S) 12/2008 left REPAIR BLADDER DEFECT TOTAL ABD HYSTERECTOMY W/WO REMOVAL OF TUBE(S) TREATMENT OF COLLAPSED LUNG 1976 right chest tube TREATMENT OF COLLAPSED LUNG 1988 left, then right side TREATMENT OF COLLAPSED LUNG 1989 pleurodesis and thoracotmy - right side Medications Current Outpatient Medications Medication Sig Dispense Refill PROBIOTIC PRODUCT PO CAPS otc 1 Cap 1 VITAMIN B COMPLEX PO TABS one daily ASPIRIN EC 81 MG PO TBEC one daily Cholecalciferol (VITAMIN D3) 5000 UNITS Tablet One tablet daily [place]-3 Fatty Acids (FISH OIL DOUBLE STRENGTH) 1200 MG CAPS Take 2,000 mg by mouth daily. Magnesium Oxide 400 MG Tablet Take 1 Tab by mouth daily. 30 Tab 5 Metoprolol Tartrate 25 MG Oral Tablet (Lopressor) Take 0.5 Tablets by mouth in the morning. Repatha 140 MG/ML Subcutaneous Solution Prefilled Syringe (Evolocumab) Inject under the skin. Indications: every 14 days Ibuprofen 200 MG Oral Capsule (Advil) Take 1 Capsule by mouth every 4 hours as needed. Fiber 625 MG Oral Tablet Take by mouth. Loratadine 10 MG Oral Tablet (Claritin) Take 1 Tablet by mouth in the morning. Coenzyme Q10 30 MG Oral Capsule Lomotil 2.5-0.025 MG Oral Tablet Start: 12/22/23 5:01:00 PM EDT, 1 tab, PO, bid, Disp# 30 tab, Refills: 0, PRN: as needed for loose stool, Pharmacy: [facility] Fluticasone Propionate 50 MCG/ACT Nasal Suspension 2 Sprays. Lidocaine 5 % External Cream EMLA CREAM Loperamide HCl 2 MG Oral Capsule (Imodium) 1 Capsule. Mag Glycinate 100 MG Oral Tablet Take 200 mg by mouth in the morning. Venlafaxine HCl ER 37.5 MG Oral Capsule Extended Release 24 Hour (Effexor XR) Take 25 mg by mouth. Pt stated that she takes a 25 mg dose Kanjinti 150 MG Intravenous Solution Reconstituted (Trastuzumab-anns) Administer intravenously. Tamoxifen Citrate 10 MG Oral Tablet (Nolvadex) Start: 01/25/24 10:52:00 AM EDT, See Instructions, Disp# 45 tab, Refills: 4, 1 tab PO bid alternating with 1 po daily, Pharmacy: [facility] LUTEIN-ZEAXANTHIN 15-0.7 MG PO CAPS one daily (Patient not taking: No sig reported) Estradiol 12.5 MG PLLT Apply as directed. (Patient not taking: Reported on 02/13/2024) Testosterone 12.5 MG PLLT Apply as directed. (Patient not taking: Reported on 05/16/2022) progesterone micronized (PROMETRIUM) 100 MG Capsule Take 100 mg by mouth daily. (Patient not taking: Reported on 05/16/2022) atenolol (TENORMIN) 25 MG Tablet Take 1/2 to 1 tablet as needed for palpitations (Patient not taking: Reported on 06/02/2021) 30 Tab 3 LORAzepam (ATIVAN) 0.5 MG Tablet (1) daily as needed for anxiety 30 Tab 3 Vitamin E 200 UNIT Oral Capsule Take 300 Units by mouth daily. (Patient not taking: Reported on 02/13/2024) rosuvastatin 2.5 mg OR TABS Take by mouth every afternoon. Indications: 1 x a week of tuesday (Patient not taking: Reported on 05/16/2022) Phenazopyridine HCl 200 MG Oral Tablet (Pyridium) Take by mouth 1 Tablet as needed in the morning AND 1 Tablet as needed at noon AND 1 Tablet as needed in the evening for Pain, Moderate. After meals for pain with urination. (Patient not taking: Reported on 02/13/2024) 6 Tablet 0 No current facility-administered medications for this visit. Allergies Review of patient's allergies indicates: Allergen Reactions Bactrim Fugue state Adhesive Tape Ciprofloxacin Tendon pain Penicillins hives Petroleum Distillate PETROL chemicals Statins Muscle pain Sulfa Antibiotics Family History Family History Problem Relation Name Age of Onset Heart Disorder Mother s/p aortic valve replacement- now age 75 Stroke Mother Hx of TIA's Heart Disorder Father of [place] Stroke Brother age 48- CVA No Past Hx None No FM HX of executive secretary [place] Social History Social History Tobacco Use Smoking status: Former Current packs/day: 0.00 Average packs/day: 0.5 packs/day for 18.0 years (9.0 ttl pk-yrs) Types: Cigarettes Start date: 10/11/1988 Quit date: 10/11/2006 Years since quittin.3 Smokeless tobacco: Never Tobacco comments: Started smoking age 21, off/on smoking 18 yrs . Quit 09-15-05, started again 03-20. Working on d/c since 08-21. Quit 10-12-06 Substance Use Topics Alcohol use: Yes Comment: 5/month Vaping/E-Cigarette Use Vaping/E-Cigarette Substances Vaping/E-Cigarette Devices Physical Examination: BP 106/62 | Pulse 71 | Temp 36.1 C (97 F) (Infrared ) | Ht 1.613 m (5' 3.5") | Wt 68.3 kg (150 lb 9.6 oz) | LMP 08/06/2009 | BMI 26.26 kg/m | BSA 1.75 m Vital Signs: Filed Vitals: 02/13/24 0959 BP: 106/62 Pulse: 71 Temp: 36.1 C (97 F) TempSrc: Infrared Weight: 68.3 kg (150 lb 9.6 oz) Height: 1.613 m (5' 3.5") General: this is a healthy appearing female who appears her stated age, comfortable, and appropriately verbally conversant without hoarseness. Face: no cutaneous masses or lesions. Facial movement was symmetric without weakness. There was no sinus tenderness elicited. The parotid and submandibular glands were normal to palpation. Eyes: EOMI, pupils equal and reactive. No nystagmus. Cranial Nerves: Cranial nerves II, III, IV, and were noted to be intact via extra-ocular muscle movement testing. Cranial nerve VII noted to be intact and symmetric by facial movement. Cranial nerve VIII was tested with tuning fork examination and revealed symmetric hearing. Cranial nerves IX and X noted to be intact by gag reflex and palatal movement. Cranial nerve XII noted to be intact by active and symmetric tongue movement. Nose: Examination of the nose revealed septum is non-obstructing. The turbinates are normal in appearance. No lesions, masses, polyps, or mucopurulence. Oral cavity: Examination of the oral cavity revealed no mass lesions or infection. The palate was noted to be intact without evidence of clefting. The tongue exhibited normal mobility. Oropharynx: Mucosa was moist without lesion or inflammation. Uvula midline. Tonsils 1+. Ears: Examination of the ears revealed that the auricles were normally formed with no lesions. Right Ear: Tympanic membrane intact and freely mobile to pneumatoscopy. No evidence of perforations, effusions, infection, or retraction pockets. Left Ear: Tympanic membrane intact and freely mobile to pneumatoscopy. No evidence of perforations,effusions, infection, or retraction pockets. Tuning fork examination with the [address] tuning fork revealed symmetric hearing with air > bone bilaterally. Tenorio lateralizes to the left. Neck: Visualization and palpation of the neck revealed no masses, thyromegaly or thyroid masses. Lymphatics (cervical):There were no palpable lymph nodes in the posterior triangle, submandibular triangle, jugulodigastric region, or central neck. No dysdiadochokinesia or past pointing bilaterally. Omer-Hallpike negative bilaterally. No spontaneous nystagmus. Assessment and Plan: Estelita Chow is a 69 year old woman who presents with a several year history of vertigo, tinnitus, and aural fullness attacks 2-3 times per year suggestive of Meniere's disease. - Audiogram today The patient was seen and examined with Dr. Laith Puentes MD Otolaryngology Resident 02/13/24 10:07 AM I have discussed the patient's management with the resident/fellow physician and agree with the note. Please refer to the documented findings and plan of care. This patient's visit today consisted ofan evaluation. I was present and confirmed the findings of the history and exam. She reports that she has history of vertigo. The attacks are infrequent It does not change her hearing and tinnitus in the right ear She has history of breast cancer Patient has ativan when she is having an MRI I have advised for her to undergo an MRI of the IACs I will see her back after the MRI is done She has H/o auditory processing disorder I will clear her hor hearing aid evaluation and hearing aids after MRI I have given her information wrt hearing aids and OTC hearing aids She will need a hearing test in 12 months Blayne Ozuna MD documented in this encounter Plan of Treatment Upcoming Encounters Date Type Department Care Team (Late st Contact Info) Description 03/09/2024 9:00 AM EDT Imaging Radiology [facility] [address] [place] [id number] Scheduled Orders Name Type Priority Associated Diagnoses Orde r Schedule AUDIOLOGY LAB Procedures Routine Vertigo Tinnitus, subjective, right Ordered: 02/13/2024 MRI INTERNAL AUDITORY CANAL W WO CONTRAST Medical Imaging Routine Vertigo Tinnitus, subjective, right Asymmetrical sensorineural hearing loss Expected: 02/13/2024, Expires: 03/15/2025 Scheduled Procedures Name Priority Associated Diagnoses Date/Ti me COLONOSCOPY FLEXIBLE PROXIMA L DIAGNOSTIC Recall History of colonic polyps Health Maintenance Due Date Last Done Comments Hepatitis C Screening 01/27/1972 Cologuard 1999 Fecal Occult Blood Test 1999 Sigmoidoscopy 1999 Depression Screening 03/31/2016 03/31/2015 Lipid Panel 04/04/2018 04/04/2013, 02/13, 12/15/2008, Additional history exists DXA Scan 11/13/2021 11/13/2014, 11/13/2014 COVID-19 Vaccine ( season) 2023 10/02/2020, 09/05/2020 DTaP,Tdap,and Td Vaccines [...] Discontinued 06/09/2021, 06/09/2021, 10/31/2015, Additional history exists GARDASIL-HPV IMMUNIZATION SERIES Aged Out No longer eligible based on patient's age to complete this topic Hepatitis B Aged Out No longer eligi ble based on patient's age to complete this topic MENINGOCOCCAL (MENACTRA/MENVEO) Aged Out No longer eligible based on patient's age to complete this topic documented as of this encounter Medical Devices Not on filedocumented as of this encounter Visit Diagnoses Diagnosis Vertigo- Primary Dizziness and giddiness Tinnitus, subjective, right Asymmetrical sensorineural hearing loss Sensorineural hearing loss, asymmetrical documented in this encounter Care Teams Fishing Tool Supervisor Relationship Specialty Start Date End Date Suyapa Card CRNP [address] [place] [address] PCP - General Nurse Practitioner 06/09/21 documented as of this encounter
--- OUTSIDE RECORDS SUMMARY | 2024-03-23 14:50 | External Medical Summary | Continuity of Care Document ---
Author Name Unknown Organization [facility] [address] [facility] 2 Address 303 [facility] [address] [id number] Care Team Providers Care Director Apparel Name Role Phone Naomi Marcus Primary Care Physicia n [phone] Encounter [facility] [id number] Date(s): 11/08/23 - 11/08/23 [facility] [address] [facility] [address] [id number] [place] Encounter Diagnosis Seborrheic keratoses(Discharge Diagnosis) - 11/08/23 Asteatotic dermatitis(Discharge Diagnosis) - 11/08/23 Discharge Disposition: Home or Self Care Attending Physician: MD Macias Thomas A Referring Physician: MD Macias Thomas A Allergies, Adverse Reactions, Alerts Substance Reaction Severity Status penicillin Unknown Active Allergy 1 MARCELINA CHEMICALS - anaphylaxis/headache Active simvastatin severe muscle pain & tension Active sulfa drugs rash, hives, hallucinations Active Cipro tachycardia tendonitis Active Macrobid 2 lower abdominal pain Active Zetia gi upset Active Tape 3 redness Itching Active Crestor 4 muscle aches Active 1PETRO CHEMICALS 2onset after 3 doses of macrobid, was able to finish 5 d course. 3steri strips & paper tape are ok 4even with 1/2 of a 5 mg tablet once a week Assessment and Plan Extracted from: Title:Clinical Document Author:MD Colleen, Mara Starr Date:11/08/23 OUTPATIENT NOTE Name: ESTELITA CHOW Patient Number:1 [id number] : 1955 Date of Service: 11/08/2023 _ Estelita Chow returns for reevaluation. She notes no new or suspicious cutaneous lesions. Since her last visit, she has been treated for breast cancer. She has undergone radiation and chemotherapy and is currently on a every 3-week infusion cycle. She notes some changes in the breast skin from radiation, but these seem to be resolving. Review of systems medications allergies as noted on the chart. Examination reveals pleasant well-nourished white female type I skin was alert and oriented x 3 with no mood and affect. Examination of the head, neck, back, chest, arms, hands, fingers, abdominal area, legs, feet, and toes reveals few lentigines in sun exposed areas particularly on the arms, face, and neck which do not appear atypical and is otherwise unremarkable. The patient will return in 1 year for reevaluation. Immunizations Given and Recorded Vaccine Date Status Refusal Reason pneumococcal 23-valent vaccine 03/11/21 Given pneumococcal 23-valent vaccine 03/20/02 Recorded SARS-CoV-2 (COVID-19) mRNA-1273 vaccine 1 10/02/20 Recorded SARS-CoV-2 (COVID-19) mRNA-1273 vaccine 09/05/20 R ecorded zoster vaccine, inactivated 10/08/19 Given zoster vaccine, inactivated 03/22/19 Given pneumococcal 13-valent vaccine 03/22/19 Given tetanus/diphtheria/pertuss, acel (Tdap) 05/18/13 R ecorded tetanus toxoids-diphtheria, Td (Adult) 02/08/03 Re corded 1Result Comment: [facility] Medications aspirin 81 mg oral capsule Start: 12/10/21 13:41:00 EDT, 1 cap, PO, Daily, Disp# 100 cap, Refills: 3, other Start Date: 12/10/21 Status: Ordered Ativan 0.5 mg oral tablet Start: 10/26/23 14:51:00 EDT, 1 tab, PO, Daily, Disp# 30 tab, Refills: 0, PRN: as needed for anxiety, Pharmacy: [id number] Start Date: 10/26/23 Status: Ordered Co Q-10 Start: 05/26/20 12:33:00 EDT, See Instructions, takes 2 capusles daily Start Date: 05/26/20 Status: Ordered Effexor 25 mg oral tablet Start: 08/31/23 10:55:00 EST, 1 tab, PO, qhs, Disp# 30 tab, Refills: 4, Pharmacy: [facility] Start Date: 08/31/23 Status: Ordered Emla 2.5%-2.5% topical cream Start: 03/09/23 12:34:00 EDT, 1 appl, topical, ONCE, Disp# 30 g, Refills: 0, Pharmacy: [facility] Start Date: 03/09/23 Status: Ordered Fish Oil Start: 02/03/10 8:51:58 EDT, 500 mg =, PO, Daily, Refills: 0, current medication from another provider Start Date: 02/03/10 Status: Ordered ibuprofen 600 mg oral tablet Start: 12/04/10 14:23:00, 1 tab, PO, qid, Disp# 50 tab, Refills: 1, PRN: as needed for pain, [facility]acy: [facility] Start Date: 12/04/10 Status: Ordered Lomotil 2.5 mg-0.025 mg oral tablet Start: 05/11/23 9:39:00 EDT, 1 tab, PO, bid, Disp# 30 tab, PRN: as needed for loose stool, Pharmacy: [facility] Start Date: 05/11/23 Status: Ordered loperamide 2 mg oral capsule Start: 10/26/23 14:49:00 EDT, 1 cap, PO, q6h, Disp# 30 cap, Refills: 1, Pharmacy: [facility] Start Date: 10/26/23 Status: Ordered loratadine 10 mg oral tablet Start: 03/01/19 15:02:00 EDT, 1 tab, PO, q48h, PRN: as needed for allergy symptoms Start Date: 03/01/19 Status: Ordered magnesium 6 lycinate Start: 09/13/16 9:19:00 EST, magnesium 6 lycinate, 500 mg daily Start Date: 09/13/16 Status: Ordered Metoprolol Succinate ER 25 mg oral tablet, extended release Start: 02/16/23 12:02:00 EDT, See Instructions, Disp# 90 tab, Refills: 3, TAKE 1/2 TABLET BY MOUTH ONCE DAILY may take an additional 1/2 tab as needed for palpitations., Pharmacy: [facility] Start Date: 02/16/23 Status: Ordered NAC Start: 12/13/22 14:23:00 EDT, NAC, See Instructions, 1 po daily Start Date: 12/13/22 Status: Ordered ondansetron 4 mg oral tablet Start: 07/25/23 12:16:00 EST, 1 tab, PO, bid, Disp# 50 tab, PRN: as needed for nausea/vomiting, Pharmacy: [facility] Start Date: 07/25/23 Status: Ordered Probiotic Formula Start: 09/13/16 9:20:00 EST, 1 cap, PO, Daily Start Date: 09/13/16 Status: Ordered Repatha SureClick 140 mg/mL subcutaneous solution Start: 05/26/21 13:59:00 EDT, subQ, [id number] Start Date: 05/26/21 Status: Ordered tamoxifen 10 mg oral tablet Start: 08/31/23 10:53:00 EST, 1 tab, PO, Daily, Disp# 60 tab, Refills: 4, Pharmacy: [facility] Start Date: 08/31/23 Status: Ordered Tylenol 500 mg oral tablet Start: 10/23/21 11:09:00 EST, 1,000 mg =, PO, q6h, PRN: as needed for pain Start Date: 10/23/21 Status: Ordered Vitamin D3 Start: 09/13/16 9:21:00, 5,000 Int_Unit =, PO, Daily Start Date: 09/13/16 Status: Ordered Mental Status 11/08/23 Barriers to Learning one year Vision imp airment, Other: glasses Mandatory Health Literacy Documentation Yes Health Literacy Communication Barriers N ever Primary Language Luxembourgish Problem List Condition Confirmation Course Effective Dates Status H ealth Status Informant Allergy to multiple antibiotics Confirmed Active Anxiety Confirmed Active Vaginal atrophy Confirmed Active CAD in [place] artery Confirmed Active Cough Confirmed Active Diarrhea [...] appendix Confirmed Active Breast cancer Confirmed Active Show-Tyjl-Qosu syndrome Confirmed Active Need for prophylactic vaccination and inoculation against influenza Confirmed Active Right elbow pain Confirmed Active Palpitations Confirmed Active Medicare annual wellness visit, subsequent Confirmed Active Post-nasal drip Confirmed Active Resection of ascending colon, cecum and terminal ileum 3 Confirmed Active Sling procedure of bladder neck Confirmed Active SVT (supraventricular tachycardia) 4 Confirmed Active Frequent unifocal PVCs Confirmed Active 1Added per Patient Financial Services Manager Ajvjxy-HV-Qh 02/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 4Added per Patient Financial Services Manager [id number]-Bx 02/23/2023 Diagnosis Diagnosis Type Effective Dates Health Status Clinical Service Informant Asteatotic dermatitis Discharge Diagnosis 11/08/23 Seborrheic keratoses Discharge Diagnosis 11/08/23 Procedures Procedure Date Related Diagnosis Body Site [...] in 5-10 years 12Sling 13Right ring finger [id number] right 15Done 2019 Social History Social History Type Response Tobacco Former smoker, Cigar ettes, 0.5 per day. 34 year(s). Started age 22 Years. Stopped age 57 Years. Smoking Status Former Smoker, quit > 1 yr Sex Female Outpatient Note * MD Colleen, Marcel Starr: PERFORM Event Display: .Outpt Note Authored Date: [id number] OUTPATIENT NOTE Name: ESTELITA CHOW Patient Number:1 [id number] : 1955 Date of Service: 11/08/2023 _ Estelita Chow returns for reevaluation. She notes no new or suspicious cutaneous lesions. Since her last visit, she has been treated for breast cancer. She has undergone radiation and chemotherapy and is currently on a every 3-week infusion cycle. She notes some changes in the breast skinfrom radiation, but these seem to be resolving. Review of systems medications allergies as noted on the chart. Examination reveals pleasant well-nourished white female type I skin was alert and oriented x 3 with no mood and affect. Examination of the head, neck, back, chest, arms, hands, fingers, abdominal area, legs, feet, and toes reveals few lentigines in sun exposed areas particularly on the arms, face,and neck which do not appear atypical and is otherwise unremarkable. The patient will return in 1 year for reevaluation. Electronic Signature on File Electronically Reviewed/Signed by: Marcel Macias MD Author Signature Dt/Tm:11/08/2023 02:54 PM Department of Dermatology [facility] Patient Care team information Care Team Personnel Name: DO Martinez Alison L Position: Physician - Radiologist Member Role: Lifetime Relationship Address: Address: [address] [place] [address] Name: Matias Tomlin Kimberly Position: Pharmacist BCMA Member Role: Pharmacy - Lifetime Address: Address: [address] Name: DO Marcus Gretchen Elizabeth Position: Physician - Family Med Member Role: Primary Care Provider Address: Address: [address] [place] [address] [place] Name: MD Ruel, Sheri Fitzpatrick Position: Physician - Surgery Oncology Member Role: Lifetime Relationship Address: Address: [address] [place] [address] Name: Lela Torre Position: HIS Supervisor_P Member Role: HIS Lifetime Care Team Related Persons Name: KARL MORRISON Address: [address] [place] [id number] Name: LOPEZ CHOW Address: [place] Address: home [address] [place] [phone] Name: LOPEZ CHOW L Address: home [address] [place] [phone]
--- OUTSIDE RECORDS SUMMARY | 2024-03-23 14:50 | External Medical Summary | Continuity of Care Document ---
Author Name Unknown Organization [facility] Address [address] [place] [id number] Care Team Providers Care Chipper Machine Operator Name Role Phone Naomi Marcus Primary Care Physicia n [phone] Encounter [facility] [id number] Date(s): 02/15/24 - 02/15/24 [facility] [place] [facility] [address] [place] [id number]- [phone] Discharge Disposition: Home or Self Care Attending Physician: MD Watkins Monali K Referring Physician: MD Watkins Monali K Allergies, Adverse Reactions, Alerts Substance Criticality Severity [...] 0, PRN: as needed for anxiety, Pharmacy: [facility] Start Date: 10/26/23 Status: Ordered Co Q-10 Start: 05/26/20 12:33:00 PM EDT, See Instructions, takes 2 capusles daily Start Date: 05/26/20 Status: Ordered Effexor 25 mg oral tablet Start: 12/28/23 10:48:00 AM EDT, 1 tab, PO, qhs, Disp# 30 tab, Refills: 4, Pharmacy: [facility] Start Date: 12/28/23 Status: Ordered Emla 2.5%-2.5% topical cream Start: 03/09/23 12:34:00 PM EDT, 1 appl, topical, ONCE, Disp# 30 g, Refills: 0, Pharmacy: [facility] Start Date: 03/09/23 Status: Ordered Fish Oil Start: 02/03/10 8:51:58 AM EDT, 500 mg =, PO, Daily, Refills: 0, current medication from another provider Start Date: 02/03/10 Status: Ordered ibuprofen 600 mg oral tablet Start: 12/04/10 2:23:00 PM EDT, 1 tab, PO, qid, Disp# 50 tab, Refills: 1, PRN: as needed for pain, [facility] Start Date: 12/04/10 Status: Ordered Lomotil 2.5 mg-0.025 mg oral tablet Start: 12/22/23 5:01:00 PM EDT, 1 tab, PO, bid, Disp# 30 tab, Refills: 0, PRN: as needed for loose stool, Pharmacy: [facility] Start Date: 12/22/23 Status: Ordered loperamide 2 mg oral capsule Start: 10/26/23 2:49:00 PM EDT, 1 cap, PO, q6h, Disp# 30 cap, Refills: 1, Pharmacy: [facility] Start Date: 10/26/23 Status: Ordered loratadine [...] 1/2 tab as needed for palpitations., Pharmacy: [facility] Start Date: 11/28/23 Status: Ordered NAC Start: 12/13/22 2:23:00 PM EDT, NAC, See Instructions, 1 po daily Start Date: 12/13/22 Status: Ordered ondansetron 4 mg oral tablet Start: 07/25/23 12:16:00 PM EST, 1 tab, PO, bid, Disp# 50 tab, PRN: as needed for nausea/vomiting, Pharmacy: [facility] Start Date: 07/25/23 Status: Ordered Probiotic Formula Start: 09/13/16 9:20:00 AM EST, 1 cap, PO, Daily Start Date: 09/13/16 Status: Ordered Repatha SureClick 140 mg/mL subcutaneous solution Start: 05/26/21 1:59:00 PM EDT, subQ, [id number] Start Date: 05/26/21 Status: Ordered tamoxifen 10 mg oral tablet Start: 01/25/24 10:52:00 AM EDT, See Instructions, Disp# 45 tab, Refills: 4, 1 tab PO bid alternating with 1 po daily, Pharmacy: [facility] Start Date: 01/25/24 Status: Ordered Tylenol 500 [...] atrophy Confirmed Active CAD in [place] artery Confirmed Active Cough Confirmed Active Diarrhea [...] appendix Confirmed Active Breast cancer Confirmed Active Spmy-Cjtg-Rfbs syndrome Confirmed Active Need for prophylactic vaccination and inoculation against influenza Confirmed Active Right elbow pain Confirmed Active Palpitations Confirmed Active Medicare annual wellness visit, subsequent Confirmed Active Post-nasal drip Confirmed Active Resection of ascending colon, cecum and terminal ileum 3 Confirmed Active Sling procedure of bladder neck Confirmed Active SVT (supraventricular tachycardia) 4 Confirmed Active Frequent unifocal PVCs Confirmed Active 1Added per Bander Jnrljy-QG-Vx 02/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 4Added per Bander Tcqxhe-DA-Hv 02/23/2023 Procedures Procedure Date Related Diagnosis Body [...] in 5-10 years 12Sling 13Right ring finger [id number] right 15Done 2019 Results Laboratory List Name Date Complete Blood Count w Differential (CBC ,DIFFH) 02/15/24 Comprehensive Metabolic Panel (COMP META B PANEL) 02/15/24 Lactate Dehydrogenase (LD) 02/15/24 Most recent to oldest [Reference Range]: 1 eGFR CKD-EPI [>60 mL/min/1.73 m2] >90 mL /min/1.73 m2 (02/15/24 7:44 AM) Estimated CrCl 103.03 mL/min (02/15/24 8:21 AM) MPV [9.0-12.2 fL] 8.8 fL *LOW* (02/15/24 7:44 AM) Immature Gran% 0.2 % (02/15/24 7:44 AM) Neut% 60.0 % (02/15/24 7:44 AM) Lymph% 25.4 % (02/15/24 7:44 AM) [place]% 10.2 % (02/15/24 7:44 AM) Baso% 0.5 % (02/15/24 7:44 AM) Eos% 3.7 % (02/15/24 7:44 AM) Immat Gran, Abs [0-0.4 K/uL] 0.01 K/uL (02/15/24 7:44 AM) Neut, Abs [2.0-7.7 K/uL] 3.52 K/uL (02/15/24 7:44 AM) Lymph, Abs [1.0-3.4 K/uL] 1.49 K/uL (02/15/24 7:44 AM) [place], Abs [0-1.0 K/uL] 0.60 K/uL (02/15/24 7:44 AM) Baso, Abs [0-0.1 K/uL] 0.03 K/uL (02/15/24 7:44 AM) Eos, Abs [0-0.5 K/uL] 0.22 K/uL (02/15/24 7:44 AM) Type of Diff: AUTO *Unknown* (02/15/24 7:44 AM) RDW [11.5-14.2 %] 12.2 % (02/15/24 7:44 AM) Anion Gap [5-14 mmol/L] 8 mmol/L (02/15/24 7:44 AM) Alb [3.5-5.2 g/dL] 4.2 g/dL (02/15/24 7:44 AM) Alk Phos [35-115 unit/L] 59 unit/L 1 (02/15/24 7:44 AM) ALT [0-33 unit/L] 24 unit/L (02/15/24 7:44 AM) AST [0-32 unit/L] 26 unit/L (02/15/24 7:44 AM) BUN [6-23 mg/dL] 16 mg/dL (02/15/24 7:44 AM) Ca [8.4-10.2 mg/dL] 9.3 mg/dL (02/15/24 7:44 AM) Cl- [98-107 mmol/L] 105 mmol/L (02/15/24 7:44 AM) HCO3 [22-29 mmol/L] 25 mmol/L (02/15/24 7:44 AM) Cret [0.60-1.00 mg/dL] 0.48 mg/dL *LOW* (02/15/24 7:44 AM) Glu [74-109 mg/dL] 100 mg/dL 2 (02/15/24 7:44 AM) Hct [35-44 %] 35.8 % (02/15/24:44 AM) Hgb [11.7-15.0 g/dL] 12.2 g/dL (02/15/24 7:44 AM) K [3.5-5.1 mmol/L] 4.5 mmol/L (02/15/24 7:44 AM) LDH [135-250 unit/L] 224 unit/L (02/15/24 7:44 AM) MCH [28-33 pg] 32.4 pg (02/15/24 7:44 AM) MCHC [32-36 g/dL] 34.1 g/dL (02/15/24 7:44 AM) MCV [81-96 fL] 95.2 fL (02/15/24 7:44 AM) Na [136-145 mmol/L] 138 mmol/L (02/15/24 7:44 AM) Plts [150-350 K/uL] 190 K/uL (02/15/24 7:44 AM) RBC [3.90-5.00 M/uL] 3.76 M/uL *LOW* (02/15/24 7:44 AM) T Bili [0.0-1.2 mg/dL] 0.3 mg/dL (02/15/24 7:44 AM) Prot [6.4-8.3 g/dL] 6.8 g/dL (02/15/24 7:44 AM) WBC [4.0-10.4 K/uL] 5.87 K/uL (02/15/24 7:44 AM) 1Result Comment: Low levels of ALKP may indicate a deficiency in zinc, magnesium, or malnutritionbutcan also be an indicator of a rare genetic disease hypophosphatasia (HPP). 2Result Comment: ADA recommendation for FASTING Serum/Plasma Glucose: Normal: 70-100 mg/dL Prediabetes: 100-125 mg/dL Diabetes: 126 mg/dL or higher Social History Social History Type Response Tobacco Former smoker, Cigar ettes, 0.5 per day. 34 year(s). Started age 22 Years. Stopped age 57 Years. Smoking Status Former Smoker, quit > 1 yr Sex Female Patient Care team information Care Team Personnel Name: DO Martinez Alison L Position: Physician - Radiologist Member Role: Lifetime Relationship Address: Address: [address] [place] [address] [place] Name: Matias Tomlin Kimberly Position: Pharmacist BCMA Member Role: Pharmacy - Lifetime Address: Address: [facility] [address] [place] [address] [place] Name: DO Marcus Gretchen Elizabeth Position: Physician - Family Med Member Role: Primary Care Provider Address: Address: [address] [place] [address], [place] [address] [place] Name: MD Lipscomb Kristine L Position: Physician - Surgery Oncology Member Role: Lifetime Relationship Address: Address: [address] [place] [address] [place] Name: Lela Torre Position: HIS Supervisor_P Member Role: HIS Lifetime Care Team Related Persons Name: KARL MORRISON Address: home [address] [place] [phone] Name: LOPEZ CORDOVA Address: [place] Address: home [address] [place] [id number] Name: LOPEZ CORDOVA Amari Address: home [address] [place] [id number]
--- OUTSIDE RECORDS SUMMARY | 2024-03-23 14:50 | External Medical Summary | Continuity of Care Document ---
Author Name Unknown Organization [facility] Address [address] [place] [phone] Care Team Providers Care Ring Spinner Name Role Phone Naomi Marcus Primary Care Physicia n [phone] Encounter [facility] [id number] Date(s): 02/15/24 - 02/15/24 [facility] [place] [facility] [address] [place] [id number]- [phone] Encounter Diagnosis Breast cancer in female(Discharge Diagnosis) - 02/15/24 Discharge Disposition: Home or Self Care Attending [...] once a week 4PETRO CHEMICALS Functional Status 02/15/24 Gait Steady Immunizations Given and Recorded Vaccine [...] 0, PRN: as needed for anxiety, Pharmacy: [facility] Start Date: 10/26/23 Status: Ordered Co Q-10 Start: 05/26/20 12:33:00 PM EDT, See Instructions, takes 2 capusles daily Start Date: 05/26/20 Status: Ordered Effexor 25 mg oral tablet Start: 12/28/23 10:48:00 AM EDT, 1 tab, PO, qhs, Disp# 30 tab, Refills: 4, Pharmacy: [facility] Start Date: 12/28/23 Status: Ordered Emla [...] PRN: as needed for pain, [facility]acy: [facility] Start Date: 12/04/10 Status: Ordered Lomotil 2.5 mg-0.025 mg oral tablet Start: 12/22/23 5:01:00 PM EDT, 1 tab, PO, bid, Disp# 30 tab, Refills: 0, PRN: as needed for loose stool, Pharmacy: [facility] Start Date: 12/22/23 Status: Ordered loperamide 2 mg oral capsule Start: 10/26/23 2:49:00 PM EDT, 1 cap, PO, q6h, Disp# 30 cap, Refills: 1, Pharmacy: [facility] Start Date: 10/26/23 Status: Ordered [...] [facility] Start Date: 11/28/23 Status: Ordered NAC Start: [...] solution Start: 05/26/21 1:59:00 PM EDT, subQ, [id number] Start Date: 05/26/21 Status: Ordered tamoxifen 10 mg oral tablet Start: 01/25/24 10:52:00 AM EDT, See Instructions, Disp# 45 tab, Refills: 4, 1 tab PO bid alternating with 1 po daily, Pharmacy: [facility] Start Date: 01/25/24 Status: Ordered Tylenol 500 [...] Active Vaginal atrophy Confirmed Active CAD in [place] artery Confirmed Active Cough Confirmed Active Diarrhea [...] appendix Confirmed Active Breast cancer Confirmed Active Dfsx-Kkxq-Wpzg syndrome Confirmed Active Need for prophylactic vaccination and inoculation against influenza Confirmed Active Right elbow pain Confirmed Active Palpitations Confirmed Active Medicare annual wellness visit, subsequent Confirmed Active Post-nasal drip Confirmed Active Resection of ascending colon, cecum and terminal ileum 3 Confirmed Active Sling procedure of bladder neck Confirmed Active SVT (supraventricular tachycardia) 4 Confirmed Active Frequent unifocal PVCs Confirmed Active 1Added per Chief Engineer Drilling And Recovery [id number]-EZ-Nw 02/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 4Added per Chief Engineer Drilling And Recovery Mydnhe-OC-Tg 02/23/2023 Diagnosis Diagnosis Type Effective Dates Health Status Cl inical Service Informant Breast cancer in female Discharge Diagnosis 02/15/24 Non-Specified Procedures Procedure Date Related Diagnosis Body [...] in 5-10 years 12Sling 13Right ring finger [id number] right 15Done 2019 Vital Signs Most recent to oldest [Reference Range]: 1 Patient Weight 69.8 kg (02/15/24 8:21 AM) Temperature [36.5-37.9 DegC] 36 DegC *LOW* (02/15/24 8:21 AM) Heart Rate 64 bpm (02/15/24 8:21 AM) Respiratory Rate 18 br/min (02/15/24 8:21 AM) Blood Pressure 115/56mmHg (02/15/24 8:21 AM) Mean Blood Pressure 70 mmHg (02/15/24 8:21 AM) Cuff Pulse Pressure 59 mmHg (02/15/24 8:21 AM) BP Location # 1 Left Arm, Non-invasive (02/15/24 8:21 AM) Social History Social History Type Response Tobacco Former smoker, Cigar ettes, 0.5 per day. 34 year(s). Started age 22 Years. Stopped age 57 Years. Smoking Status Former Smoker, quit > 1 yr Sex Female Patient Care team information Care Team Personnel Name: DO Martinez Alison L Position: Physician - Radiologist Member Role: Lifetime Relationship Address: Address: [address] [place] [address] Name: Matias Tomlin Kimberly Position: Pharmacist BCMA Member Role: Pharmacy - Lifetime Address: Address: [facility] [address] [place] [address] [place] Name: DO Marcus Gretchen Elizabeth Position: Physician - Family Med Member Role: Primary Care Provider Address: Address: [address] [place] [address], [place] [address] [place] Name: MD Lipscomb Kristine L Position: Physician - Surgery Oncology Member Role: Lifetime Relationship Address: Address: [address] [place] [address] [place] [address] [place] Name: Lela Torre Position: HIS Supervisor_P Member Role: HIS Lifetime Care Team Related Persons Name: KARL MORRISON Address: [address] [place] [phone] Name: LOPEZ CORDOVA Address: [place] Address: home [address] [place] [phone] Name: LOPEZ CORDOVA Address: home [address] [place] [id number]
--- OUTSIDE RECORDS SUMMARY | 2024-03-23 14:50 | External Medical Summary | Summary of Care ---
Author Name Unknown Organization [facility] Address [address] [place] [address] Phone [phone] Care Team Providers Care Communication Manager Name Role Phone Suyapa Card Primary Care Provid er Reason for Referral * Precert (Within 10 days (routine)) - Pending Review Specialty Diagnoses / Procedures Referred By Fernando t Referred To Contact Radiology Diagnoses Vertigo Tinnitus, subjective, right Asymmetrical sensorineural hearing loss Procedures MRI INTERNAL AUDITORY CANAL W WO CONTRAST Blayne Ozuna MD [address] [place] [address] Referral ID Status Reason Start Date Expiration Date V isits Requested Visits Authorized [id number] Pending Review 02/13/2024 999 999 Reason for Visit * Reason Comments NEW PATIENT Pt stated that she h as had tinnitus right ear, and 'after chemo it has gotten worse', vertigo, and migraines Encounter Details Date Type Department Care Team (Latest Contact Info) Description 02/13/2024 10:00 AM EDT Office Visit Otolaryngology/Head & Neck/Facial Plastic Surgery [address] [place] [address] Blayne Ozuna MD [address] [place] [address] Vertigo*; Tinnitus, subjective, right; Asymmetrical [...] 5000 UNITS Tablet One tablet daily Active [place]-3 Fatty Acids (FISH OIL DOUBLE STRENGTH) 1200 [...] PRN: as needed for loose stool, Pharmacy: [facility] 05/11/2023 Active Fluticasone Propionate 50 MCG/ACT Nasal [...] bid alternating with 1 po daily, Pharmacy: [facility] 08/31/2023 Active documented as of this encounter [...] 02/13/2024) Immunizations Name Administration Dates Next Due Pneumococcal Polysaccharide PPV23 (Pneumovax) 03/20/2002 Seasonal Influenza, Split, I IV3, With Preserve, Inj 05/18/2013,08/26/2012,07/08/2003 TD - Tetanus/Diptheria (ADULT) 02/08/2003 TDAP (age 10 and older)(Boostrix) 05/18/2013 documented [...] Head and Neck Surgery Facial Plastic Surgery [place] [phone] 02/13/2024 10:07 AM CC: Tinnitus, vertigo, and [...] performed by Bailey Castro DO at [facility] COLONOSCOPY, DIAGNOSTIC (RECTUM) N/A 06/09/2021 patent end to side ileo-colonic anastomosis/diverticulosis sigmoid colon/recall 5 years/COLONOSCOPYFLEXIBLE PROXIMAL DIAGNOSTIC performed by Bailey Castro DO at [facility] COLONOSCOPY, REMOVE LESION 09/27/2006 (3) polyps- repeat in 3 years INFORMATION 10/2010 at [facility] attemtped robotic laproscopic surgery for hysterectomy , [...] D3) 5000 UNITS Tablet One tablet daily [place]-3 Fatty Acids (FISH OIL DOUBLE STRENGTH) 1200 [...] PRN: as needed for loose stool, Pharmacy: [facility] Fluticasone Propionate 50 MCG/ACT Nasal Suspension 2 [...] bid alternating with 1 po daily, Pharmacy: [facility] LUTEIN-ZEAXANTHIN 15-0.7 MG PO CAPS one daily [...] Hx of TIA's Heart Disorder Father of [place] Stroke Brother age 48- CVA No Past Hx None No FM HX of bundle wrapper [place] Social History Social History Tobacco Use [...] presents with a several year history of 2-3 attacks per year of vertigo, right sided tinnitus, and aural fullness. She has recent history of breast cancer. MRI IAC The patient was seen and examined with [...] Description 03/09/2024 9:00 AM EDT Imaging Radiology [address] [address] Scheduled Orders Name Type Priority Associated Diagnoses [...] asymmetrical documented in this encounter Care Teams Communication Manager Relationship Specialty Start Date End Date Suyapa Card CRNP [address] [address] PCP - General Nurse Practitioner 06/09/21 documented as of this encounter
--- OUTSIDE RECORDS SUMMARY | 2024-03-23 14:50 | External Medical Summary | Continuity of Care Document ---
Author Name Unknown Organization [facility] Address [address] [place] [address] ESPERANZA BOLAND [phone] Care Team Providers Care Radiology Tech Name Role Phone Naomi Marcus Primary Care Physicia n [phone] Encounter [facility] [id number] Date(s): 11/23/23 - 11/23/23 [facility] [address] ESPERANZA Zayas [id number]- [phone] Encounter Diagnosis Breast cancer(Discharge Diagnosis) - 11/23/23 Discharge Disposition: Home or Self Care Attending Physician: MD Watkins Monali K Referring Physician: MD June, Estefanía Coto Allergies, Adverse Reactions, Alerts Substance Reaction Severity Status penicillin Unknown Active Macrobid 1 lower abdominal pain Active Allergy 2 MARCELINA CHEMICALS - anaphylaxis/headache Active simvastatin severe muscle pain & tension Active sulfa drugs rash, hives, hallucinations Active Cipro tachycardia tendonitis Active Zetia gi upset Active Tape 3 redness Itching Active Crestor 4 muscle aches Active 1onset after 3 doses of macrobid, was able to finish 5 d course. 2PETRO CHEMICALS 3steri strips & paper tape are ok 4even with 1/2 of a 5 mg tablet once a week Functional Status 11/23/23 Gait Steady Immunizations Given and Recorded Vaccine [...] 0, PRN: as needed for anxiety, Pharmacy: [id number] Start Date: 10/26/23 Status: Ordered Co Q-10 Start: 05/26/20 12:33:00 EDT, See Instructions, takes 2 capusles daily Start Date: 05/26/20 Status: Ordered Effexor 25 mg oral tablet Start: 08/31/23 10:55:00 EST, 1 tab, PO, qhs, Disp# 30 tab, Refills: 4, Pharmacy: [facility] Start Date: 08/31/23 Status: Ordered Emla 2.5%-2.5% topical cream Start: 03/09/23 12:34:00 EDT, 1 appl, topical, ONCE, Disp# 30 g, Refills: 0, Pharmacy: [facility] Start Date: 03/09/23 Status: Ordered Fish Oil Start: 02/03/10 8:51:58 EDT, 500 mg =, PO, Daily, Refills: 0, current medication from another provider Start Date: 02/03/10 Status: Ordered ibuprofen 600 mg oral tablet Start: 12/04/10 14:23:00, 1 tab, PO, qid, Disp# 50 tab, Refills: 1, PRN: as needed for pain, [facility]: [facility] Start Date: 12/04/10 Status: Ordered Lomotil 2.5 mg-0.025 mg oral tablet Start: 05/11/23 9:39:00 EDT, 1 tab, PO, bid, Disp# 30 tab, PRN: as needed for loose stool, Pharmacy: [facility] Start Date: 05/11/23 Status: Ordered loperamide 2 mg oral capsule Start: 10/26/23 14:49:00 EDT, 1 cap, PO, q6h, Disp# 30 cap, Refills: 1, Pharmacy: [facility] [id number] Start Date: 10/26/23 Status: Ordered [...] 1/2 tab as needed for palpitations., Pharmacy: [facility] Start Date: 02/16/23 Status: Ordered NAC Start: 12/13/22 14:23:00 EDT, NAC, See Instructions, 1 po daily Start Date: 12/13/22 Status: Ordered ondansetron 4 mg oral tablet Start: 07/25/23 12:16:00 EST, 1 tab, PO, bid, Disp# 50 tab, PRN: as needed for nausea/vomiting, Pharmacy: [facility] Start Date: 07/25/23 Status: Ordered Probiotic Formula Start: 09/13/16 9:20:00 EST, 1 cap, PO, Daily Start Date: 09/13/16 Status: Ordered Repatha SureClick 140 mg/mL subcutaneous solution Start: 05/26/21 13:59:00 EDT, subQ, [id number] Start Date: 05/26/21 Status: Ordered tamoxifen 10 mg oral tablet Start: 08/31/23 10:53:00 EST, 1 tab, PO, Daily, Disp# 60 tab, Refills: 4, Pharmacy: [facility] Start Date: 08/31/23 Status: Ordered Tylenol [...] Active Vaginal atrophy Confirmed Active CAD in [place] artery Confirmed Active Cough Confirmed Active Diarrhea [...] appendix Confirmed Active Breast cancer Confirmed Active Gkvm-Vwvk-Wqff syndrome Confirmed Active Need for prophylactic vaccination and inoculation against influenza Confirmed Active Right elbow pain Confirmed Active Palpitations Confirmed Active Medicare annual wellness visit, subsequent Confirmed Active Post-nasal drip Confirmed Active Resection of ascending colon, cecum and terminal ileum 3 Confirmed Active Sling procedure of bladder neck Confirmed Active SVT (supraventricular tachycardia) 4 Confirmed Active Frequent unifocal PVCs Confirmed Active 1Added per Relationship Executive Qrcrhc-HN-Ve 02/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 4Added per Relationship Executive Ekkjib-PC-Ar 02/23/2023 Diagnosis Diagnosis Type Effective Dates Health Status Cl inical Service Informant Breast cancer Discharge Diagnosis 11/23/23 Non-Specified Procedures Procedure Date Related Diagnosis Body [...] in 5-10 years 12Sling 13Right ring finger [id number] right 15Done 2019 Results Laboratory List Name Date Complete Blood Count w Differential (CBC ,DIFFH) 11/23/23 Comprehensive Metabolic Panel (COMP META B PANEL) 11/23/23 Lactate Dehydrogenase (LD) 11/23/23 Most recent to oldest [Reference Range]: 1 eGFR CKD-EPI [>60 mL/min/1.73 m2] >90 mL /min/1.73 m2 (11/23/23 9:28 AM) Estimated CrCl 108.86 mL/min (11/23/23 9:59 AM) MPV [9.0-12.2 fL] 8.7 fL *LOW* (11/23/23 9:28 AM) Immature Gran% 1.0 % (11/23/23 9:28 AM) Neut% 61.7 % (11/23/23 9:28 AM) Lymph% 26.9 % (11/23/23 9:28 AM) [place]% 8.7 % (11/23/23 9:28 AM) Baso% 0.4 % (11/23/23 9:28 AM) Eos% 1.3 % (11/23/23 9:28 AM) Immat Gran, Abs [0-0.4 K/uL] 0.05 K/uL (11/23/23 9:28 AM) Neut, Abs [2.0-7.7 K/uL] 3.21 K/uL (11/23/23 9:28 AM) Lymph, Abs [1.0-3.4 K/uL] 1.40 K/uL (11/23/23 9:28 AM) [place], Abs [0-1.0 K/uL] 0.45 K/uL (11/23/23 9:28 AM) Baso, Abs [0-0.1 K/uL] 0.02 K/uL (11/23/23 9:28 AM) Eos, Abs [0-0.5 K/uL] 0.07 K/uL (11/23/23 9:28 AM) Type of Diff: AUTO *Unknown* (11/23/23 9:28 AM) RDW [11.5-14.2 %] 12.6 % (11/23/23 9:28 AM) Anion Gap [5-14 mmol/L] 11 mmol/L (11/23/23: AM) Alb [3.5-5.2 g/dL] 4.4 g/dL (11/23/23 AM) Alk Phos [35-115 unit/L] 73 unit/L 1 (11/23/23 AM) ALT [0-33 unit/L] 15 unit/L (11/23/23 AM) AST [0-32 unit/L] 22 unit/L (11/23/23 AM) BUN [6-23 mg/dL] 12 mg/dL (11/23/23 AM) Ca [8.4-10.2 mg/dL] 9.5 mg/dL (11/23/23 AM) Cl- [98-107 mmol/L] 103 mmol/L (11/23/23 AM) HCO3 [22-29 mmol/L] 25 mmol/L (11/23/23 AM) Cret [0.60-1.00 mg/dL] 0.46 mg/dL *LOW* (11/23/23 AM) Glu [74-109 mg/dL] 98 mg/dL 2 (11/23/23 AM) Hct [35-44 %] 36.3 % (11/23/23 AM) Hgb [11.7-15.0 g/dL] 12.3 g/dL (11/23/23 AM) K [3.5-5.1 mmol/L] 4.2 mmol/L (11/23/23 AM) LDH [135-250 unit/L] 217 unit/L (11/23/23 AM) MCH [28-33 pg] 31.6 pg (11/23/23 AM) MCHC [32-36 g/dL] 33.9 g/dL (11/23/23 AM) MCV [81-96 fL] 93.3 fL (11/23/23 AM) Na [136-145 mmol/L] 139 mmol/L (11/23/23 AM) Plts [150-350 K/uL] 194 K/uL (4/10/24 9:28 AM) RBC [3.90-5.00 M/uL] 3.89 M/uL *LOW* (11/23/23 9:28 AM) T Bili [0.0-1.2 mg/dL] 0.3 mg/dL (11/23/23 9:28 AM) Prot [6.4-8.3 g/dL] 6.7 g/dL (11/23/23 9:28 AM) WBC [4.0-10.4 K/uL] 5.20 K/uL (11/23/23 9:28 AM) 1Result Comment: Low levels of ALKP may indicate a deficiency in zinc, magnesium, or malnutritionbutcan also be an indicator of a rare genetic disease hypophosphatasia (HPP). 2Result Comment: ADA recommendation for FASTING Serum/Plasma Glucose: Normal: 70-100 mg/dL Prediabetes: 100-125 mg/dL Diabetes: 126 mg/dL or higher Vital Signs Most recent to oldest [Reference Range]: 1 Temperature [36.5-37.9 DegC] 36.3 DegC *LOW* (11/23/23 12:20 PM) Heart Rate 61 bpm (11/23/23 12:20 PM) Respiratory Rate 14 br/min (11/23/23 12:20 PM) Blood Pressure 104/49mmHg (11/23/23 12:20 PM) Cuff Pulse Pressure 55 mmHg (11/23/23 12:20 PM) BP Location # 1 Left Arm (11/23/23 12:20 PM) Social History Social History Type Response Tobacco Former smoker, Cigar ettes, 0.5 per day. 34 year(s). Started age 22 Years. Stopped age 57 Years. Smoking Status Former Smoker, quit > 1 yr Sex Female Patient Care team information Care Team Personnel Name: DO Martinez Alison L Position: Physician - Radiologist Member Role: Lifetime Relationship Address: Address: [address] [place] [address] [place] Name: Matias Tomlin Kimberly Position: Pharmacist BCMA Member Role: Pharmacy - Lifetime Address: Address: [address] [address] Name: DO Marcus Gretchen Elizabeth Position: Physician - Family Med Member Role: Primary Care Provider Address: Address: [address] [place] [address] [place] Name: MD Ruel, Sheri Fitzpatrick Position: Physician - Surgery Oncology Member Role: Lifetime Relationship Address: Address: [address] [facility] [address] [place]ay[place] [address] Name: Lela Torre Position: HIS Supervisor_P Member Role: HIS Lifetime Care Team Related Persons Name: KARL MORRISON Address: [address] [address] [place] [address] ESPERANZA ARREOLA [phone] Name: LOPEZ CORDOVA Address: [place] Address: home [address] [place] [phone] Name: LOPEZ CORDOVA L Address: home [address] [place] [phone]
--- OUTSIDE RECORDS SUMMARY | 2024-03-23 14:50 | External Medical Summary | Continuity of Care Document ---
Author Name Unknown Organization [facility] Address [address] [place] [address] ESPERANZA BOLAND [phone] Care Team Providers Care Toy Department Manager Name Role Phone Naomi Marcus Primary Care Physicia n [phone] Encounter [facility] [id number] Date(s): 01/04/24 - 01/04/24 [facility] [address] ESPERANZA Zayas [id number]- [phone] Encounter Diagnosis Breast cancer(Discharge Diagnosis) - 01/04/24 Discharge Disposition: Home or Self Care Attending [...] once a week 4PETRO CHEMICALS Functional Status 01/04/24 Gait Steady Immunizations Given and Recorded Vaccine [...] as needed for anxiety, Pharmacy: [facility] [id number] Start Date: 10/26/23 Status: Ordered Co Q-10 Start: 05/26/20 12:33:00 PM EDT, See Instructions, takes 2 capusles daily Start Date: 05/26/20 Status: Ordered Effexor 25 mg oral tablet Start: 12/28/23 10:48:00 AM EDT, 1 tab, PO, qhs, Disp# 30 tab, Refills: 4, Pharmacy: [facility] Start Date: 12/28/23 Status: Ordered Emla 2.5%-2.5% topical cream Start: 03/09/23 12:34:00 PM EDT, 1 appl, topical, ONCE, Disp# 30 g, Refills: 0, Pharmacy: [facility] Start Date: 03/09/23 Status: Ordered Fish Oil Start: 02/03/10 8:51:58 AM EDT, 500 mg =, PO, Daily, Refills: 0, current medication from another provider Start Date: 02/03/10 Status: Ordered ibuprofen 600 mg oral tablet Start: 12/04/10 2:23:00 PM EDT, 1 tab, PO, qid, Disp# 50 tab, Refills: 1, PRN: as needed for pain, Pharmacy: [facility] Start Date: 12/04/10 Status: Ordered Lomotil 2.5 mg-0.025 mg oral tablet Start: 12/22/23 5:01:00 PM EDT, 1 tab, PO, bid, Disp# 30 tab, Refills: 0, PRN: as needed for loose stool, Pharmacy: [facility] Start Date: 12/22/23 Status: Ordered loperamide 2 mg oral capsule Start: 10/26/23 2:49:00 PM EDT, 1 cap, PO, q6h, Disp# 30 cap, Refills: 1, Pharmacy: [facility] 6524 Start Date: 10/26/23 Status: Ordered loratadine [...] 1/2 tab as needed for palpitations., Pharmacy: [facility] Start Date: 11/28/23 Status: Ordered NAC Start: 12/13/22 2:23:00 PM EDT, NAC, See Instructions, 1 po daily Start Date: 12/13/22 Status: Ordered ondansetron 4 mg oral tablet Start: 07/25/23 12:16:00 PM EST, 1 tab, PO, bid, Disp# 50 tab, PRN: as needed for nausea/vomiting, Pharmacy: [facility] Start Date: 07/25/23 Status: Ordered Probiotic Formula Start: 09/13/16 9:20:00 AM EST, 1 cap, PO, Daily Start Date: 09/13/16 Status: Ordered Repatha SureClick 140 mg/mL subcutaneous solution Start: 05/26/21 1:59:00 PM EDT, subQ, [id number] Start Date: 05/26/21 Status: Ordered tamoxifen 10 mg oral tablet Start: 08/31/23 10:53:00 AM EST, 1 tab, PO, Daily, Disp# 60 tab, Refills: 4, Pharmacy: [facility] Start Date: 08/31/23 Status: Ordered Tylenol 500 [...] Active Vaginal atrophy Confirmed Active CAD in [place] artery Confirmed Active Cough Confirmed Active Diarrhea [...] appendix Confirmed Active Breast cancer Confirmed Active Aodl-Ocio-Ddjr syndrome Confirmed Active Need for prophylactic vaccination and inoculation against influenza Confirmed Active Right elbow pain Confirmed Active Palpitations Confirmed Active Medicare annual wellness visit, subsequent Confirmed Active Post-nasal drip Confirmed Active Resection of ascending colon, cecum and terminal ileum 3 Confirmed Active Sling procedure of bladder neck Confirmed Active SVT (supraventricular tachycardia) 4 Confirmed Active Frequent unifocal PVCs Confirmed Active 1Added per Stockbroking Dealer [id number] 02/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 4Added per Stockbroking Dealer [id number] 02/23/2023 Diagnosis Diagnosis Type Effective Dates Health Status Cl inical Service Informant Breast cancer Discharge Diagnosis 01/04/24 Non-Specified Procedures Procedure Date Related Diagnosis Body Site Status Biopsy of R breast 1 12/16/22 Comp leted Lumpectomy of right breast 10/23/21 Completed Colonoscopy 2 06/09/21 Completed Biopsy of right breast using ultrasonographic guidance 3 01/27/21 Comp leted ORAL SURGERY PROCEDURE 4 04/2020 Completed Biopsy 5 01/2020 Completed Biopsy of breast 2019 Complete d FNA - Fine needle aspiration [...] in 5-10 years 12Sling 13Right ring finger [id number] right 15Done 2019 Vital Signs Most recent to oldest [Reference Range]: 1 Patient Weight 68.9 kg (01/04/24 9:58 AM) Temperature [36.5-37.9 DegC] 36.1 DegC *LOW* (01/04/24 9:58 AM) Heart Rate 56 bpm (01/04/24 9:58 AM) Respiratory Rate 18 br/min (01/04/24 9:58 AM) Blood Pressure 112/56mmHg (01/04/24 9:58 AM) Cuff Pulse Pressure 56 mmHg (01/04/24 9:58 AM) BP Location # 1 Left Arm (01/04/24 9:58 AM) Social History Social History Type Response Tobacco Former smoker, Cigar ettes, 0.5 per day. 34 year(s). Started age 22 Years. Stopped age 57 Years. Smoking Status Former Smoker, quit > 1 yr Sex Female Patient Care team information Care Team Personnel Name: DO Martinez Alison L Position: Physician - Radiologist Member Role: Lifetime Relationship Address: Address: [address] [place] [id number] [place] Name: Matias Tomlin Kimberly Position: Pharmacist BCMA Member Role: Pharmacy - Lifetime Address: Address: [facility] [address] [place] [address] [place] Name: DO Marcus Gretchen Elizabeth Position: Physician - Family Med Member Role: Primary Care Provider Address: Address: [address] [place] [address], [place] [address] [place] Name: MD Lipscomb Kristine L Position: Physician - Surgery Oncology Member Role: Lifetime Relationship Address: Address: [address] [address] [place] Name: Lela Torre Position: HIS Supervisor_P Member Role: HIS Lifetime Care Team Related Persons Name: KARL MORRISON Address: home [address] [place] [phone] Name: LOPEZ CORDOVA Address: [place] Address: home [address] [facility] [phone] Name: LOPEZ CORDOVA Address: home [address] [facility] [phone]
--- OUTSIDE RECORDS SUMMARY | 2024-03-23 14:50 | External Medical Summary | Continuity of Care Document ---
Author Name Unknown Organization [facility] ([facility]) [address] [facility] Address [address] [place], [place] [id number] Care Team Providers Care Gun Repair Clerk Name Role Phone Naomi Marcus Primary Care Physicia n [phone] Encounter [facility] [id number] Date(s): 12/01/23 - 12/01/23 [facility] ([facility] [address], [address] [place] [address] [phone] Encounter Diagnosis CAD in [place] artery(Discharge Diagnosis) - 12/01/23 Frequent unifocal PVCs(Discharge Diagnosis) - 12/01/23 Hyperlipidemia(Discharge Diagnosis) - 12/01/23 Malignant neoplasm of upper-outer quadrant of right female breast(Discharge Diagnosis) - 12/01/23 Discharge Disposition: Home or Self Care Attending Physician: DO Roger Jason D Allergies, Adverse Reactions, Alerts Substance Reaction Severity [...] a week Assessment and Plan Extracted from: Title:Cardiology Office Visit Note Author:DO Roger Jason D Date:12/01/23 1.CAD in [place] artery 2.Frequent unifocal PVCs 3.Hyperlipidemia 4.Malignant neoplasm of upper-outer quadrant of right female breast She denies any anginal symptoms currently.. Her shortness of breath and fatigue she thinks is more related to her ongoing therapy with Herceptin. We did discuss when her blood pressures are low that she does feel slightly worse. I reviewed with her she should increase her fluid consumption and consider something like liquid IV. Her PVCs at this point are tolerable. There is no room to increase her beta-blockers given her relatively low blood pressures. She continues to get echoes every 3 months while she is on Herceptin therapy. I discussed with her her strain is -22 which is reassuring she has had no issues affecting her heart with Herceptin at this point. She remains on Repatha given her known coronary calcium score being elevated. She is intolerant of statins in the past with significant side effects. Although her most recent lipid numbers are not very good her oncologist has discussed with her that her chemotherapy is impacting her numbers. I recommended rechecking her numbers 6 months after her Herceptin is completed and I will see her back at that point in late August 2024. Immunizations Given and Recorded Vaccine Date Status Refusal Reason pneumococcal 23-valent vaccine 03/11/21 Given pneumococcal 23-valent vaccine 03/20/02 Recorded SARS-CoV-2 (COVID-19) mRNA-1273 vaccine 1 10/02/20 Recorded SARS-CoV-2 (COVID-19) mRNA-1273 vaccine 09/05/20 R ecorded zoster vaccine, inactivated 10/08/19 Given zoster vaccine, inactivated 03/22/19 Given pneumococcal 13-valent vaccine 03/22/19 Given tetanus/diphtheria/pertuss, acel (Tdap) 05/18/13 R ecorded tetanus toxoids-diphtheria, Td (Adult) 02/08/03 Re corded 1Result Comment: [facility] Medications aspirin 81 mg oral capsule Start: 12/10/21 13:41:00 EDT, 1 cap, PO, Daily, Disp# 100 cap, Refills: 3, other Start Date: 12/10/21 Status: Ordered Ativan 0.5 mg oral tablet Start: 10/26/23 14:51:00 EDT, 1 tab, PO, Daily, Disp# 30 tab, Refills: 0, PRN: as needed for anxiety, Pharmacy: [id number] Start Date: 10/26/23 Status: Ordered Co Q-10 Start: 05/26/20 12:33:00 EDT, See Instructions, takes 2 capusles daily Start Date: 05/26/20 Status: Ordered Effexor 25 mg oral tablet Start: 08/31/23 10:55:00 EST, 1 tab, PO, qhs, Disp# 30 tab, Refills: 4, Pharmacy: [facility] Start Date: 08/31/23 Status: Ordered Emla 2.5%-2.5% [...] PRN: as needed for pain, Pharmacy: [id number] Start Date: 12/04/10 Status: Ordered Lomotil 2.5 mg-0.025 mg oral tablet Start: 05/11/23 9:39:00 EDT, 1 tab, PO, bid, Disp# 30 tab, PRN: as needed for loose stool, Pharmacy: [facility] Start Date: 05/11/23 Status: Ordered loperamide 2 mg oral capsule Start: 10/26/23 14:49:00 EDT, 1 cap, PO, q6h, Disp# 30 cap, Refills: 1, Pharmacy: [id number] Start Date: 10/26/23 Status: Ordered loratadine 10 [...] subcutaneous solution Start: 05/26/21 13:59:00 EDT, subQ, [id number] Start Date: 05/26/21 Status: Ordered tamoxifen 10 mg oral tablet Start: 08/31/23 10:53:00 EST, 1 tab, PO, Daily, Disp# 60 tab, Refills: 4, Pharmacy: [facility] Start Date: 08/31/23 Status: Ordered Tylenol 500 mg oral tablet Start: 10/23/21 11:09:00 EST, 1,000 mg =, PO, q6h, PRN: as needed for pain Start Date: 10/23/21 Status: Ordered Vitamin D3 Start: 09/13/16 9:21:00, 5,000 Int_Unit =, PO, Daily Start Date: 09/13/16 Status: Ordered Mental Status 12/01/23 Barriers to Learning one year Vision imp airment, Other: glasses Mandatory Health Literacy Documentation Yes Health Literacy Communication Barriers N ever Primary Language [place] Citizen Problem List Condition Confirmation Course Effective Dates Status H ealth Status Informant Allergy to multiple antibiotics Confirmed Active Anxiety Confirmed Active Vaginal atrophy Confirmed Active CAD in [place] artery Confirmed Active Cough Confirmed Active Diarrhea [...] appendix Confirmed Active Breast cancer Confirmed Active Retm-Uonm-Tbye syndrome Confirmed Active Need for prophylactic vaccination and inoculation against influenza Confirmed Active Right elbow pain Confirmed Active Palpitations Confirmed Active Medicare annual wellness visit, subsequent Confirmed Active Post-nasal drip Confirmed Active Resection of ascending colon, cecum and terminal ileum 3 Confirmed Active Sling procedure of bladder neck Confirmed Active SVT (supraventricular tachycardia) 4 Confirmed Active Frequent unifocal PVCs Confirmed Active 1Added per Assembler Truck Trailer [id number] 02/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 4Added per Assembler Truck Trailer [id number] 02/23/2023 Diagnosis Diagnosis Type Effective Dates Health Status Clinical Service Informant Frequent unifocal PVCs Discharge Diagnosis 12/01/23 Malignant neoplasm of upper-outer quadrant of right female breast Discharge Diagnosis 12/01/23 CAD in [place] artery Discharge Diagnosis 12/01/23 Hyperlipidemia Discharge Diagnosis 12/01/23 Procedures Procedure Date Related Diagnosis Body Site [...] in 5-10 years 12Sling 13Right ring finger [id number] right 15Done 2019 Vital Signs Most recent to oldest [Reference Range]: 1 Patient Weight 69 kg (12/01/23 2:48 PM) Heart Rate 63 bpm (12/01/23 2:48 PM) Respiratory Rate 18 br/min (12/01/23 2:48 PM) Blood Pressure 118/60mmHg (12/01/23 2:48 PM) BP Location # 1 Right Arm (12/01/23 2:48 PM) Social History Social History Type Response Tobacco Former smoker, Cigar ettes, 0.5 per day. 35 year(s). Started age 22 Years. Stopped age 57 Years. Smoking Status Former Smoker, quit > 1 yr Sex Female Cardiology Outpatient Note * DO Roger Jason D: PERFORM Event Display: Cardiology Outpt Note Authored Date: [id number] Primary Care Provider DO Marcus Gretchen Elizabeth Chief Complaint follow up History of Present Illness She can walk on the flat without any shortness of breath. She can walk about 3 miles. She notesif there is an incline or hill she has some shortness of breath. She climb a flight of stairs without having to stop. She does have some orthostatic lightheadedness. On 25 mg of Toprol it was worse and with reducingthe dose to 12 and half milligrams this has improved. She has any presyncope or syncope. She does occasionally get palpitations for which she describes an extra beat here and there. She has had no racing of her heart. She has no chest tightness with activity. She denies any falls or syncopal episodes. She is tolerating Repatha without any side effects. She was intolerant of statins. She is currently receiving Herceptin and having echoes done every 3 months. She had a new diagnosis of right-sided breast cancer in 2022. Review of Systems PAST MEDICAL HISTORY: 1. History of frequent PVCs, upwards of 6.8% of all beats in a 24-hour period without any episodes nonsustained VT with marked improvement with low-dose beta blockers. 2. Negative stress echo for ischemia. The PVCs resolved with exercise. She did have a short run of SVT in recovery (07/2014). 3. Normal biventricular size and function with preserved left ventricular systolic function, Strain -22 (2023). 4. History of bilateral pneumothoraces, status post right pleurodesis. 5. 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 Current Treatment: -Tamoxifen started Jul 2023 - maintenance trastuzumab every 3 weeks single agent since 06/08/23. 6. 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 7. Total abdominal hysterectomy with bilateral salpingo-oophorectomy. 8. History of bladder sling surgery. 9. Coronary calcium score (174) September 2019 with a vascular age of 76 predominantly in the right coronary artery territory. Physical Exam Vitals & Measurements HR:63(Monitored) RR:18 BP:118/60 SpO2:98% WT:69kg WT:69.000kg(Dosing) PHYSICAL EXAMINATION:She is awake, alert and oriented x3. She is in no acute distress. She is a well-appearing female, looks younger than her stated age. HEENT: 2+ carotid upstrokes, no evidence of carotid bruits. Lungs clear to auscultation bilaterally, no rales, rhonchi or wheezing. Heart: Regular rate and rhythm, no appreciable murmurs, rubs or gallops. Extremities: No clubbing, cyanosis or edema. Psychiatric: Affect appeared appropriate. Assessment/Plan 1.CAD in [place] artery 2.Frequent unifocal PVCs 3.Hyperlipidemia 4.Malignant neoplasm of upper-outer quadrant of right female breast She denies any anginal symptoms currently.. Her shortness of breath and fatigue she thinks is more related to her ongoing therapy with Herceptin. We did discuss when her blood pressures are low that she does feel slightly worse. I reviewed with her she should increase her fluid consumption and consider something like liquid IV. Her PVCs at this point are tolerable. There is no room to increase her beta- blockers given her relatively low blood pressures. She continues to get echoes every 3 months while she is on Herceptin therapy. I discussed with her her strain is -22 which is reassuring she has had no issues affecting her heart with Herceptin at this point. She remains on Repatha given her known coronary calcium score being elevated. She is intolerant of statins in the past with significant side effects. Although her most recent lipid numbers arenot very good her oncologist has discussed with her that her chemotherapy is impacting her numbers. I recommended rechecking her numbers 6 months after her Herceptin is completed and I will see garry at that point in late August 2024. 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 Medicare annual wellness visit, subsequent Need for prophylactic vaccination and inoculation against influenza Palpitations Post-nasal drip Resection of ascending colon, cecum and terminal ileum Right elbow pain Sling procedure of bladder neck SVT (supraventricular tachycardia) Vaginal atrophy Historical Finger fracture, right High calcium levels Procedure/Surgical History Biopsy of R breast| Service Date: 12/16/2022Lumpectomy of right breast| Service Date: 10/23/2021olonoscopy| Service Date: 06/09/2021iopsy of right breast using ultrasonographic guidance| Service Date: 01/27/2021ORAL SURGERY PROCEDURE| Service Date: 04/2020Biopsy| Service Date: Biopsy of breast| Service Date: 2018FNA - Fine needle aspiration of breast| Service Date: 01/2018Left Lumpectomy| Service Date: 2017Biopsy of breast| Service Date: 06/21/2017Mammogram,unilateral left digital diagnostic mammogram| Service Date: 05/18/2017Biopsy,left breast| Service Date: 05/18/2017Mammogram - screening| Service Date: 04/25/2017Echocardiogram| Service Date: 06/2015Exercise stress echocardiography| Service Date: 07/2014Holter monitor| Service Date: 07/09/2014Hysterectomy| Service Date: 2010Colonoscopy| Service Date: 07/16/2010Partial resection of colon| Service Date: ladder - Ureter Sling| Service Date: 2008Osteochondroma, Right ring finger| Service Date: ppendectomy| Service Date: iopsy of breast, right| Service Date: 1998THORACOTOMY W/PLEURODESIS| Service Date: 1994Cervical polypectomy| Service Date: 1991Mammogram| Service Date: 1954Lumpectomy of right breast Medications acetaminophen(Tylenol 500 mg oral tablet), 1000 mg, PO, q6h, PRN aspirin(aspirin 81 mg oral capsule), 81 mg= 1 cap, PO, Daily, 3 refills atropine-diphenoxylate(Lomotil 2.5 mg-0.025 mg oral tablet), 1 tab, PO, bid, PRN bifidobacterium-lactobacillus(Probiotic Formula), 1 cap, PO, Daily cholecalciferol(Vitamin D3), 5000 Int_Unit, PO, Daily evolocumab(Repatha SureClick 140 mg/mL subcutaneous solution), subQ, [id number] ibuprofen(ibuprofen 600 mg oral tablet), 600 mg= 1 tab, PO, qid, PRN, 1 refills lidocaine-prilocaine topical(Emla 2.5%-2.5% topical cream), 1 appl, topical, ONCE loperamide(loperamide 2 mg oral capsule), 2 mg= 1 cap, PO, q6h, 1 refills loratadine(loratadine 10 mg oral tablet), 10 mg= 1 tab, PO, q48h, PRN LORazepam(Ativan 0.5 mg oral tablet), 0.5 mg= 1 tab, PO, Daily, PRN metoprolol(Metoprolol Succinate ER 25 mg oral tablet, extended release), See Instructions omega-3 polyunsaturated fatty acids(Fish Oil), 500 mg, PO, Daily ondansetron(ondansetron 4 mg oral tablet), 4 mg= 1 tab, PO, bid, PRN tamoxifen(tamoxifen 10 mg oral tablet), 10 mg= 1 tab, PO, Daily, 4 refills ubiquinone(Co Q-10), See Instructions unknown medication(magnesium 6 lycinate) unlisted medication(NAC), See Instructions venlafaxine(Effexor 25 mg oral tablet), 25 mg= 1 tab, PO, qhs, 4 refills Allergies AllergyPETRO CHEMICALS - anaphylaxis/headache Ciprotachycardia, tendonitis Crestormuscle aches Macrobidlower abdominal pain Taperedness, Itching Zetiagi upset penicillinUnknown simvastatinsevere muscle pain & tension sulfa drugsrash, hives, hallucinations Social History Smoking Status Former Smoker, quit > 1 yr Alcohol Use:Current Type:Wine, Liquor Frequency:3-5 times per week 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 Cigarette smoker: Father. Dementia: Mother. Drug addiction: Brother. Glaucoma: MGF. Heart attack: Father. Hypertension: Brother. Stroke: Brother and MGM. Type II diabetes mellitus: PGF. Health Status Family Member(s) Daughter: History is negative Son: History is negative Family Member(s) Relationship: Father, Age: 64 Years, Cause: sudden cardiac Relationship: Brother, Age: 58 Years, Cause: CVA Relationship: Mother, Age: 78 Years, Cause: rectal bleeding Electronic Signature on File CC: Naomi Marcus D.O. [address] [place] [id number] Electronically Reviewed/Signed by: Marty Roger DO Author Signature Dt/Tm:12/01/2023 03:23 PM Pain Management Physiciangreen promotions specialist [facility] [address] [facility], [address] [place] [address] JDF Patient Care team information Care Team Personnel Name: DO Martinez Alison L Position: Physician - Radiologist Member Role: Lifetime Relationship Address: Address: [address] [place] [id number] [place] Name: Matias Tomlin Kimberly Position: Pharmacist BCMA Member Role: Pharmacy - Lifetime Address: Address: [facility] [address] [place] [address] [place] Name: DO Marcus Gretchen Elizabeth Position: Physician - Family Med Member Role: Primary Care Provider Address: Address: [address] [place] [id number] [place] Name: MD Lipscomb Kristine L Position: Physician - Surgery Oncology Member Role: Lifetime Relationship Address: Address: [address] [place] [id number] [place] Name: Lela Torre Position: HIS Supervisor_P Member Role: HIS Lifetime Care Team Related Persons Name: KARL MORRISON Address: home [address] [place] [address] [address] [phone] Name: LOPEZ CORDOVA Address: [place] Address: home [address] [phone] Name: LOPEZ CORDOVA Amari Address: home [address] [phone]"
--- OUTSIDE RECORDS SUMMARY | 2024-03-23 14:50 | External Medical Summary | Continuity of Care Document ---
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) - 11/23/23 Malignant neoplasm of upper-outer quadrant of right female breast(Discharge Diagnosis) - 11/23/23 Discharge Disposition: Home or [...] a 5 mg tablet once a week Immunizations Given and Recorded Vaccine Date Status [...] 0, PRN: as needed for anxiety, Pharmacy: [id number] Start Date: 10/26/23 Status: Ordered Co Q-10 Start: 05/26/20 12:33:00 EDT, See Instructions, takes 2 capusles daily Start Date: 05/26/20 Status: Ordered Effexor 25 mg oral tablet Start: 08/31/23 10:55:00 EST, 1 tab, PO, qhs, Disp# 30 tab, Refills: 4, Pharmacy: [facility] Start Date: 08/31/23 Status: Ordered Emla 2.5%-2.5% topical cream Start: 03/09/23 12:34:00 EDT, 1 appl, topical, ONCE, Disp# 30 g, Refills: 0, Pharmacy: [facility] Start Date: 03/09/23 Status: Ordered Fish Oil Start: 02/03/10 8:51:58 EDT, 500 mg =, PO, Daily, Refills: 0, current medication from another provider Start Date: 02/03/10 Status: Ordered ibuprofen 600 mg oral tablet Start: 12/04/10 14:23:00, 1 tab, PO, qid, Disp# 50 tab, Refills: 1, PRN: as needed for pain, [facility]: [facility] Start Date: 12/04/10 Status: Ordered Lomotil 2.5 mg-0.025 mg oral tablet Start: 05/11/23 9:39:00 EDT, 1 tab, PO, bid, Disp# 30 tab, PRN: as needed for loose stool, Pharmacy: [facility] Start Date: 05/11/23 Status: Ordered loperamide 2 mg oral capsule Start: 10/26/23 14:49:00 EDT, 1 cap, PO, q6h, Disp# 30 cap, Refills: 1, Pharmacy: [id number] Start Date: 10/26/23 Status: Ordered [...] 1/2 tab as needed for palpitations., Pharmacy: [facility] Start Date: 02/16/23 Status: Ordered NAC Start: 12/13/22 14:23:00 EDT, NAC, See Instructions, 1 po daily Start Date: 12/13/22 Status: Ordered ondansetron 4 mg oral tablet Start: 07/25/23 12:16:00 EST, 1 tab, PO, bid, Disp# 50 tab, PRN: as needed for nausea/vomiting, Pharmacy: [facility] Start Date: 07/25/23 Status: Ordered Probiotic Formula Start: 09/13/16 9:20:00 EST, 1 cap, PO, Daily Start Date: 09/13/16 Status: Ordered Repatha SureClick 140 mg/mL subcutaneous solution Start: 05/26/21 13:59:00 EDT, subQ, c2kyske Start Date: 05/26/21 Status: Ordered tamoxifen 10 mg oral tablet Start: 08/31/23 10:53:00 EST, 1 tab, PO, Daily, Disp# 60 tab, Refills: 4, Pharmacy: [facility] Start Date: 08/31/23 Status: Ordered Tylenol 500 mg oral tablet Start: 10/23/21 11:09:00 EST, 1,000 mg =, PO, q6h, PRN: as needed for pain Start Date: 10/23/21 Status: Ordered Vitamin D3 Start: 09/13/16 9:21:00, 5,000 Int_Unit =, PO, Daily Start Date: 09/13/16 Status: Ordered Mental Status 11/23/23 Barriers to Learning one year Vision imp airment, Other: glasses Mandatory Health Literacy Documentation Yes Communication Barrier Present No Health Literacy Communication Barriers N ever Primary Language Occitan Problem List Condition Confirmation Course Effective Dates Status H ealth Status Informant Allergy to multiple antibiotics Confirmed Active Anxiety Confirmed Active Vaginal atrophy Confirmed Active CAD in ione artery Confirmed Active Cough Confirmed Active Diarrhea [...] appendix Confirmed Active Breast cancer Confirmed Active Brfq-Pnqm-Klyg syndrome Confirmed Active Need for prophylactic vaccination and inoculation against influenza Confirmed Active Right elbow pain Confirmed Active Palpitations Confirmed Active Medicare annual wellness visit, subsequent Confirmed Active Post-nasal drip Confirmed Active Resection of ascending colon, cecum and terminal ileum 3 Confirmed Active Sling procedure of bladder neck Confirmed Active SVT (supraventricular tachycardia) 4 Confirmed Active Frequent unifocal PVCs Confirmed Active 1Added per Naphtha Washing System Operator [id number]-[id number] 02/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 4Added per Naphtha Washing System Operator Byblsc-GS-Ua 02/23/2023 Diagnosis Diagnosis Type Effective Dates Health Status Cl inical Service Informant Malignant neoplasm of upper-outer quadrant of right female breast Discharge Diagnosis 11/23/23 Non-Specified Malignant carcinoid tumor of the appendix Discharge Diagnosis 11/23/23 Non-Specified Procedures Procedure Date Related Diagnosis Body Site Status Biopsy of R breast 1 12/16/22 Comp leted Lumpectomy of right breast 10/23/21 Completed Colonoscopy 2 06/09/21 Completed Biopsy of right breast using ultrasonographic guidance 3 01/27/21 Comp leted ORAL SURGERY PROCEDURE 04/2020 Completed Biopsy 5 01/2020 Completed Biopsy of breast 2018 Complete d FNA - Fine needle aspiration of breast 01/2018 Completed Left Lumpectomy 2018 Completed Biopsy of breast 06/21/17 Complete d Biopsy,left breast 6 05/18/17 Comp leted Mammogram,unilateral left di gital diagnostic mammogram 05/18/17 Completed Mammogram - screening 7 04/25/17 C ompleted Echocardiogram 8 06/2015 Complete d Exercise stress echocardiography 07/2014 Completed Holter monitor 10 07/09/14 [facility] ed Hysterectomy 2010 Completed Colonoscopy 11 [...] in 5-10 years 12Sling 13Right ring finger [id number] right 15Done 2019 Vital Signs Most recent to oldest [Reference Range]: 1 Height 161.2 cm (11/23/23 10:05 AM) Patient Weight 68.9 kg (11/23/23 10:05 AM) Body Mass Index 26.51 kg/m2 (11/23/23 10:05 AM) Temperature [36.5-37.9 DegC] 36.5 DegC (11/23/23 10:05 AM) Heart Rate 59 bpm (11/23/23 10:05 AM) Respiratory Rate 12 br/min (11/23/23 10:05 AM) Blood Pressure 102/55mmHg (11/23/23 10:05 AM) Mean Blood Pressure 71 mmHg (11/23/23 10:05 AM) Cuff Pulse Pressure 47 mmHg (11/23/23 10:05 AM) BP Location # 1 Left Arm (11/23/23 10:05 AM) Social History Social History Type Response Tobacco Former smoker, Cigar ettes, 0.5 per day. 35 year(s). Started age 22 Years. Stopped age 57 Years. Smoking Status Former Smoker, quit > 1 yr Sex Female Patient Care team information Care Team Personnel Name: DO Martinez Alison L Position: Physician - Radiologist Member Role: Lifetime Relationship Address: Address: [address] [place] [id number] [place] Name: Matias Tomlin Kimberly Position: Pharmacist BCMA Member Role: Pharmacy - Lifetime Address: Address: [facility] [address] [place] [address] [place] Name: DO Marcus Gretchen Elizabeth Position: Physician - Family Med Member Role: Primary Care Provider Address: Address: [address] [place] [address] [place] Name: MD Lipscomb Kristine L Position: Physician - Surgery Oncology Member Role: Lifetime Relationship Address: Address: [address] [place] [address] Name: Lela Torre Position: HIS Supervisor_P Member Role: HIS Lifetime Care Team Related Persons Name: KARL MORRISON Address: [place] [address] [place] [address] ESPERANZA ARREOLA [phone] Name: LOPEZ CORDOVA Address: [place] Address: home [address] [place] [place] [phone] Name: LOPEZ CORDOVA Address: home [address] [facility] [phone]
--- OUTSIDE RECORDS SUMMARY | 2024-03-23 14:50 | External Medical Summary | Summary of Care ---
Author Name Unknown Organization [facility] Address [address] [place] [address] Phone [phone] Care Team Providers Care Security Expert Name Role Phone Suyapa Card Primary Care Provid er Reason for Visit * Reason Onset Date Comments Appointment 11/17/2023 Encounter Details Date Type Department Care Team (Late st Contact Info) Description 11/17/2023 Telephone Otolaryngology, [place] [address] [place] [address] Services, [facility] [address] [place] [address] Appointment Allergies Active Allergy Reactions Criticality Noted Date Comments Adhesive Tape 12/11/2004 Bactrim High 12/29/2009 Fugue state Ciprofloxacin 06/02/2021 Tendon pain Penicillins 07/29/1997 hives Petroleum Distillate 07/01/2010 PETROL chemicals Statins 06/02/2021 Muscle pain Sulfa Antibiotics 06/26/2013 documented as of this encounter (statuses as of 02/16/2024) Medications Medication Sig Dispensed Refills Start Date End Date Status PROBIOTIC PRODUCT PO CAPSIndications:Rout ine gynecological examination otc 1 Cap 1 02/23/2010 Active LUTEIN-ZEAXANTHIN 15-0.7 MG PO CAPS one daily Active VITAMIN B COMPLEX PO TABS one daily Active ASPIRIN EC 81 MG PO TBEC one daily Active Cholecalciferol (VITAMIN D3) 5000 UNITS Tablet One tablet daily Active [place]-3 Fatty Acids (FISH OIL DOUBLE STRENGTH) 1200 [...] Additional Information Patient not taking.Reported on 02/13/2024 documented as of this encounter (statuses as of 02/16/2024) Active Problems Problem Noted Date Diagnosed Date [...] as of this encounter (statuses as of 02/16/2024) Immunizations Name Administration Dates Next Due Seasonal [...] on file documented as of this encounter Miscellaneous Notes * Telephone Encounter - Aminah Burgos OSA - 11/17/2023 10:27 AM EDT Pt calling in requesting to be seen with Dr. Ozuna for her ears. PT is also having vertigo and balance issues. Appts do not pull with Dr. Ozuna as the tree is set up as New ENT. Please advise documented in this encounter Plan of Treatment Upcoming Encounters Date Type Department Care Team (Late st Contact Info) Description 03/09/2024 9:00 AM EDT Imaging Radiology [address] [address] Scheduled Procedures Name Priority Associated Diagnoses Date/Ti me COLONOSCOPY FLEXIBLE PROXIMA L DIAGNOSTIC Recall History of colonic polyps Health Maintenance Due Date Last Done Comments Hepatitis C Screening 01/27/1972 Cologuard 1999 Fecal Occult Blood Test 1999 Sigmoidoscopy 1999 Depression Screening 03/31/2016 03/31/2015 Lipid Panel 04/04/2018 04/04/2013, 02/13, 12/15/2008, Additional history exists DXA Scan 11/13/2021 11/13/2014, 11/13/2014 COVID-19 Vaccine (3 - 2022-24 season) 2023 10/02/2020, 09/05/2020 DTaP,Tdap,and Td Vaccines (2 - Td or Tdap) 05/18/2023 05/18/2013, 02/08/2003 Mammogram 02/19/2024 02/18/2023, 0712/2022, 02/16/2023, Additional history exists Influenza Vaccine (FLU [...] filedocumented as of this encounter Care Teams Security Expert Relationship Specialty Start Date End Date Suyapa Card CRNP [address] [address] PCP - General Nurse Practitioner 06/09/21 documented as of this encounter
--- OUTSIDE RECORDS SUMMARY | 2024-03-23 14:50 | External Medical Summary | Summary of Care ---
Author Name Unknown Organization [facility] Address [address] [place] [address] Phone [phone] Care Team Providers Care Crystal Inspector Name Role Phone Suyapa Card Primary Care Provid er Encounter Details Date Type Department Care Team (Latest Contact Info) Description 02/13/2024 9:00 AM EDT Office Visit Audiology, [place] [address] [place] [address] Whitley Tyler Au.D. [address] [place] [address] Bilateral sensorineural hearing loss* Allergies Active Allergy Reactions Criticality Noted Date [...] 5000 UNITS Tablet One tablet daily Active Acton-3 Fatty Acids (FISH OIL DOUBLE STRENGTH) 1200 [...] PRN: as needed for loose stool, Pharmacy: [facility] 05/11/2023 Active Fluticasone Propionate 50 MCG/ACT [...] bid alternating with 1 po daily, Pharmacy: [facility] 08/31/2023 Active documented as of this [...] as of this encounter Progress Notes * Whitley Tyler Au.D. - 02/13/2024 11:04 AM EDT Images from the original note were not included. Audiologic evaluation was completed as a direct referral from Otolaryngology clinic. ENT: Dr Ozuna Reason for referral: vertigo, tinnitus of right ear Tympanometry refer to scans for specific details) Right: Type A (WNL) Left: Type A (WNL) Audiometric testing Test reliability: Good Transducer: supra-aural earphones Right: Normal sloping to moderate sensorineural hearing loss Left: Normal to mild sensorineural hearing loss Minor asymmetry noted in pure tone thresholds R>L Speech office receptionist thresholds (W-1s) are in agreement with pure tone averages. Word recognition scores (recorded W-22s) are within normal limits in both ears, although right scored slightly worse than left Patient is to follow up with ENT staff for review and management of the above test results. Whitley Tyler, Delia, CCC/A, [facility] Senior Education Specialist documented in this encounter Plan of Treatment [...] Scan 11/13/2021 11/13/2014, 11/13/2014 COVID-19 Vaccine ( - season) 2023 10/02/2020, 09/05/2020 DTaP,Tdap,and Td Vaccines [...] Not on filedocumented as of this encounter Procedures Procedure Name Priority Date/Time Associated Diagnosis Comments AUDIOMETRIC RESULT 02/13/2024 documented in this encounter Results * AUDIOMETRIC RESULT (02/13/2024) 02/13/2024 [facility] documented in this encounter Visit Diagnoses Diagnosis Bilateral sensorineural hearing loss- Primary Sensorineural hearing loss, bilateral documented in this encounter Care Teams Crystal Inspector Relationship Specialty Start Date End Date Suyapa Card CRNP [address] [address] PCP - General Nurse Practitioner 06/09/21 documented as of this encounter
--- OUTSIDE RECORDS SUMMARY | 2024-03-23 14:50 | External Medical Summary | Continuity of Care Document ---
Author Name Unknown Organization [facility] Address [address] [place] [address] ESPERANZA BOLAND [phone] Care Team Providers Care Field Service Rep Name Role Phone Naomi Marcus Primary Care Physicia n [phone] Encounter [facility] [id number] Date(s): 01/25/24 - 01/25/24 [facility] [address] ESPERANZA Zayas [id number]- [phone] Encounter Diagnosis Breast cancer(Discharge Diagnosis) - 01/25/24 Discharge Disposition: Home or Self Care Attending [...] once a week 4PETRO CHEMICALS Functional Status 01/25/24 Gait Steady Immunizations Given and Recorded Vaccine [...] as needed for anxiety, Pharmacy: [facility] [id number] Start Date: 10/26/23 Status: Ordered Co Q-10 [...] PRN: as needed for pain, Pharmacy: [facility] Start Date: 12/04/10 Status: Ordered Lomotil [...] 30 cap, Refills: 1, Pharmacy: [facility] Start Date: 10/26/23 Status: Ordered loratadine [...] solution Start: 05/26/21 1:59:00 PM EDT, subQ, [id number] Start Date: 05/26/21 Status: Ordered tamoxifen 10 mg oral tablet Start: 01/25/24 10:52:00 AM EDT, See Instructions, Disp# 45 tab, Refills: 4, 1 tab PO bid alternating with 1 po daily, Pharmacy: [facility] Start Date: 01/25/24 Status: Ordered Tylenol [...] Active Vaginal atrophy Confirmed Active 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 Cough Confirmed Active Diarrhea [...] appendix Confirmed Active Breast cancer Confirmed Active Yzvg-Jymz-Jjin syndrome Confirmed Active Need for prophylactic vaccination and inoculation against influenza Confirmed Active Right elbow pain Confirmed Active Palpitations Confirmed Active Medicare annual wellness visit, subsequent Confirmed Active Post-nasal drip Confirmed Active Resection of ascending colon, cecum and terminal ileum 3 Confirmed Active Sling procedure of bladder neck Confirmed Active SVT (supraventricular tachycardia) 4 Confirmed Active Frequent unifocal PVCs Confirmed Active 1Added per Welding Machine Operator Plasma Arc [id number] 02/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 4Added per Welding Machine Operator Plasma Arc [id number]-AY-Ua 02/23/2023 Diagnosis Diagnosis Type Effective Dates Health Status Cl inical Service Informant Breast cancer Discharge Diagnosis 01/25/24 Non-Specified Procedures Procedure Date Related Diagnosis Body [...] 9 07/2014 Completed Holter monitor 10 07/09/14 [facility] ed Hysterectomy 2010 Completed Colonoscopy 11 [...] in 5-10 years 12Sling 13Right ring finger [id number] right 15Done 2019 Vital Signs Most recent to oldest [Reference Range]: 1 Patient Weight 69.4 kg (01/25/24 9:57 AM) Temperature [36.5-37.9 DegC] 36.8 DegC (01/25/24 9:57 AM) Heart Rate 72 bpm (01/25/24 9:57 AM) Respiratory Rate 18 br/min (01/25/24 9:57 AM) Blood Pressure 117/66mmHg (01/25/24 9:57 AM) Cuff Pulse Pressure 51 mmHg (01/25/24 9:57 AM) BP Location # 1 Left Arm (01/25/24 9:57 AM) Social History Social History Type Response Tobacco Former smoker, Cigar ettes, 0.5 per day. 35 year(s). Started age 22 Years. Stopped age 57 Years. Smoking Status Former Smoker, quit > 1 yr Sex Female Patient Care team information Care Team Personnel Name: DO Martinez Alison L Position: Physician - Radiologist Member Role: Lifetime Relationship Address: Address: [address] [place] [address] [place] Name: Matias Tomlin Kimberly Position: Pharmacist BCMA Member Role: Pharmacy - Lifetime Address: Address: [facility] [address] [place] [address] [place] Name: DO Marcus Gretchen Elizabeth Position: Physician - Family Med Member Role: Primary Care Provider Address: Address: [address] [place] [address], [place] [address] [place] Name: MD Lipscomb Kristine L Position: Physician - Surgery Oncology Member Role: Lifetime Relationship Address: Address: [address] [facility] [address] [place] [address] [place] Name: Lela Torre Position: HIS Supervisor_P Member Role: HIS Lifetime Care Team Related Persons Name: KARL MORRISON Address: home [address] [facility] [facility] [place] [phone] Name: LOPEZ CORDOVA Address: [place] Address: home [address], [place] [phone] Name: LOPEZ CORDOVA Address: home [address], [place] [phone]
--- OUTSIDE RECORDS SUMMARY | 2024-03-23 14:51 | External Medical Summary | Continuity of Care Document ---
Author Name Unknown Organization [address] Address [address] [place], [place] [id number] Care Team Providers Care Automobile Drivers Name Role Phone Naomi Marcus Primary Care Physicia n [phone] [id number] Date[facility]s): 11/07/23 - 11/07/23 [facility] [address], [address] [place] [address] [phone] Discharge Disposition: Home or Self Care Attending [...] as needed for anxiety, Pharmacy: [facility] Start Date: 10/26/23 Status: Ordered Co Q-10 Start: 05/26/20 12:33:00 EDT, See Instructions, takes 2 capusles daily Start Date: 05/26/20 Status: Ordered Effexor 25 mg oral tablet Start: 08/31/23 10:55:00 EST, 1 tab, PO, qhs, Disp# 30 tab, Refills: 4, Pharmacy: [facility] Start Date: 08/31/23 Status: Ordered Emla 2.5%-2.5% topical cream Start: 03/09/23 12:34:00 EDT, 1 appl, topical, ONCE, Disp# 30 g, Refills: 0, Pharmacy: [facility] Start Date: 03/09/23 Status: Ordered Fish Oil Start: 02/03/10 8:51:58 EDT, 500 mg =, PO, Daily, Refills: 0, current medication from another provider Start Date: 02/03/10 Status: Ordered ibuprofen 600 mg oral tablet Start: 12/04/10 14:23:00, 1 tab, PO, qid, Disp# 50 tab, Refills: 1, PRN: as needed for pain, [facility]acy: [facility] Start Date: 12/04/10 Status: Ordered Lomotil 2.5 mg-0.025 mg oral tablet Start: 05/11/23 9:39:00 EDT, 1 tab, PO, bid, Disp# 30 tab, PRN: as needed for loose stool, Pharmacy: [facility] Start Date: 05/11/23 Status: Ordered loperamide 2 mg oral capsule Start: 10/26/23 14:49:00 EDT, 1 cap, PO, q6h, Disp# 30 cap, Refills: 1, Pharmacy: [facility] Start Date: 10/26/23 Status: Ordered loratadine [...] 1/2 tab as needed for palpitations., Pharmacy: [facility] Start Date: 02/16/23 Status: Ordered NAC Start: 12/13/22 14:23:00 EDT, NAC, See Instructions, 1 po daily Start Date: 12/13/22 Status: Ordered ondansetron 4 mg oral tablet Start: 07/25/23 12:16:00 EST, 1 tab, PO, bid, Disp# 50 tab, PRN: as needed for nausea/vomiting, Pharmacy: [facility] Start Date: 07/25/23 Status: Ordered Probiotic Formula Start: 09/13/16 9:20:00 EST, 1 cap, PO, Daily Start Date: 09/13/16 Status: Ordered Repatha SureClick 140 mg/mL subcutaneous solution Start: 05/26/21 13:59:00 EDT, subQ, [id number] Start Date: 05/26/21 Status: Ordered tamoxifen 10 mg oral tablet Start: 08/31/23 10:53:00 EST, 1 tab, PO, Daily, Disp# 60 tab, Refills: 4, Pharmacy: [facility] Start Date: 08/31/23 Status: Ordered Tylenol [...] Active Vaginal atrophy Confirmed Active CAD in [place] artery Confirmed Active Cough Confirmed Active Diarrhea [...] appendix Confirmed Active Breast cancer Confirmed Active Dtgi-Zkpr-Ymkv syndrome Confirmed Active Need for prophylactic vaccination and inoculation against influenza Confirmed Active Right elbow pain Confirmed Active Palpitations Confirmed Active Medicare annual wellness visit, subsequent Confirmed Active Post-nasal drip Confirmed Active Resection of ascending colon, cecum and terminal ileum 3 Confirmed Active Sling procedure of bladder neck Confirmed Active SVT (supraventricular tachycardia) 4 Confirmed Active Frequent unifocal PVCs Confirmed Active 1Added per Director [employer] [id number]-UA-[id number] 02/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 4Added per Director [employer] Tpocyc-UN-[id number] 02/23/2023 Procedures Procedure Date Related Diagnosis Body Site Status Biopsy of R breast 1 12/16/22 Comp leted Lumpectomy of right breast 10/23/21 Completed Colonoscopy 2 06/09/21 Completed Biopsy of right breast using ultrasonographic guidance 3 01/27/21 Comp leted ORAL SURGERY PROCEDURE 4 04/2020 Completed Biopsy 01/2020 Completed Biopsy of breast 2018 Complete [...] in 5-10 years 12Sling 13Right ring finger [id number] right 15Done 2019 Results Radiology Reports * Exam Date Time Procedure Performing Provider Status 11/07/23 8:37 AM Echo TransTHORacic TTE Limited Aleena Nance; Final Notes: (Echo TransTHORacic TTE Limited) Reason For Exam: 68 YF iwh breast cancer on Trastuzumab - ef/gls Echo TransTHORacic TTE Limited Report Signatures Finalized by Dr. Marty Roger MD on 11/07/2023 12:24 PM [place] Act 112: No-No further action needed Summary 1. Limited 2D, limited spectral Doppler and LV strain imaging performed to evaluate LV function while undergoing cancer treatment. 2. Normal left ventricular size and systolic function with no regional wall motion abnormalities. 3. Ejection fraction as calculated by Biplane Simpsons method is 60-65%. 4. Normal LV strain. Global endocardial peak longitudinal strain is -22%. 5. No left ventricular hypertrophy. 6. Indeterminate LV diastolic function. 7. Mildly dilated left atrium. 8. Normal right ventricular size and function. 9. Normal right atrial size. 10. Normal estimated pulmonary artery pressures, estimated PASP is 25 mmHg. 11. Compared to the previous study performed 06/21/2023, there is no significant change. Patient Info Name: RADAMES CORDOVA Age: 68 years : 1955 Gender: Female Ht: 160 cm Wt: 68 kg BSA: 1.76 m2 HR: 61 bpm BP: 120 / 54 mmHg Heart Rhythm: PACs, PVCs, Sinus Rhythm Technical Quality: Good Exam Date: 11/07/2023 8:12 AM Exam [facility] Patient Status: Outpatient Staff Ordering Physician: Estefanía Watkins Industrial Diamond Polisher: Aleena Nance RDCS, T Attending Physician: Estefanía Watkins Study Info [facility] [id number] - [id number] [phone] [id number] - Indications - Chemotherapy Treatment Procedure(s) * A limited two-dimensional transthoracic echocardiogram was performed. * Limited spectral Doppler was performed. * Strain Imaging was added to further interrogate the severity of disease. Exam Type: Cardiac Basic Left Ventricle Normal left ventricular size and systolic function with no regional wall motion abnormalities. Ejection fraction as calculated by Biplane Simpsons method is 60-65%. Normal LV strain. Global endocardial peak longitudinal strain is -22%. No left ventricular hypertrophy. Indeterminate LV diastolic function. Right Ventricle Normal right ventricular size and function. TAPSE is normal, 2.2 cm. Left Atrium Mildly dilated left atrium. Right Atrium Normal right atrial size. Aortic Valve Normal, tricuspid aortic valve without stenosis. Pulmonic Valve Appears structurally normal. Mitral Valve Severely calcified mitral valve annulus without stenosis. Tricuspid Valve Appears structurally normal. Normal estimated pulmonary artery pressures, estimated PASP is 25 mmHg. Pericardium/Pleural No pericardial effusion. Inferior Vena Cava Normal IVC size and inspiratory collapse. Estimated right atrial pressure is 3 mmHg. Aorta Normal aortic root. Left Ventricular Outflow Tract Name Value Normal LVOT 2D LVOT Diameter 1.8 cm LVOT Doppler LVOT Peak Velocity 1.21 m/s LVOT Peak Gradient 6 mmHg LVOT Mean Gradient 2 mmHg LVOT VTI 28.99 cm LVOT Stroke Volume 77.10 ml LVOT Stroke Volume Index 0.04 l/m2 LVOT Cardiac Output 4.70 l/min LVOT Cardiac Index 2.68 L/min/m2 Mitral Valve Name Value Normal MV Doppler MV PHT 60 ms MV Diastolic Function MV E Peak Velocity 1.08 m/s <=0.50 MV A Peak Velocity 0.70 m/s MV E/A 1.54 <=0.80 MV Decel Time 208 ms MV Annular TDI MV Septal e' Velocity 8.92 cm/s >=7.00 MV E/e' (Septal) 12.1 <=8.0 MV Lateral e' Velocity 9.49 cm/s >=10.00 MV E/e' (Lateral) 11.38 <=8.00 MV e' Average 9.21 MV E/e' (Average) 11.74 <=14.00 Tricuspid Valve Name Value Normal TV Regurgitation Doppler TR Peak Velocity 2.33 m/s <=2.80 Estimated PAP/RSVP RA Pressure 3 mmHg <=5 PA Systolic Pressure 25 mmHg <40 Aorta Name Value Normal Ascending Aorta Sinus of Valsalva Diameter 3.3 cm 2.7-3.3 Sinus of Valsalva Index 1.86 cm/m2 1.60-2.00 Venous Name Value Normal IVC/SVC IVC Diameter (Insp 2D) 0.6 cm IVC Diameter (Exp 2D) 1.1 cm <=2.1 IVC Diameter Percent Change (2D) 47 % >=50 Aortic Valve Name Value Normal AV Doppler AV Peak Velocity 1.19 m/s <2.00 AV Peak Gradient 6 mmHg AV Area (Cont Eq Pastor) 2.7 cm2 AV Area Index (Cont Eq Pastor) 1.54 cm2/m2 AV V1/V2 Ratio 1.02 AV Regurgitation 2D LVOT Area 2.7 cm2 Ventricles Name Value Normal LV Dimensions 2D/MM IVS Diastolic Thickness (2D) 0.9 cm 0.6-0.9 LVID Diastole (2D) 4.5 cm 3.3-5.1 LVIW Diastolic Thickness (2D) 0.8 cm 0.6-0.9 LVID Systole (2D) 2.6 cm 2.2-3.5 LVOT Diameter 1.8 cm LV Mass (2D Cubed) 123.84 g 67.00-162.00 LV Mass Index (2D Cubed) 0.01 g/cm2 0.00-0.01 Relative Wall Thickness (2D) 0.38 LV Fractional Shortening/Ejection Fraction 2D/MM LV Fractional Shortening (2D) 43 % 27-45 LV Diastolic Volume (4C MOD) 80 ml LV Diastolic Volume (2C MOD) 85 ml LV Diastolic Volume (BP MOD) 82 ml 46-106 LV Diastolic Volume Index (BP MOD) 46.95 ml/m2 29.00-61.00 LV Systolic Volume (BP MOD) 31 ml 14-42 LV Systolic Volume Index (BP MOD) 17.64 ml/m2 8.00-24.00 LV EF (BP MOD) 62 % 58-69 LV SV (BP MOD) 51.45 ml RV Dimensions 2D/MM RV Basal Diastolic Dimension 3.6 cm 2.5-4.1 TAPSE 2.2 cm >=1.7 Atria Name Value Normal LA Dimensions LA Area (4C) 20.0 cm2 LA Length (4C) 5.8 cm LA Area (2C) 21.0 cm2 LA Length (2C) 5.5 cm LA Volume (4C A-L) 58.98 ml LA Volume (2C A-L) 67.38 ml LA Volume (BP A-L) 64 ml 22-52 LA Volume Index (BP A-L) 36.72 ml/m2 <=34.00 RA Dimensions RA Area (4C) 16.3 cm2 <=18.0 Final Signed by:DO Roger Jason D Signed (Electronic Signature):11/07/2023 8:12 a Social History Social History Type Response Tobacco Former smoker, Cigar ettes, 0.5 per day. 35 year(s). Started age 22 Years. Stopped age 57 Years. Smoking Status Former Smoker, quit > 1 yr Sex Female Patient Care team information Care Team Personnel Name: DO Martinez Alison L Position: Physician - Radiologist Member Role: Lifetime Relationship Address: Address: [address] [place] [id number] [place] Name: Matias Tomlin Kimberly Position: Pharmacist BCMA Member Role: Pharmacy - Lifetime Address: Address: [facility] [address] [place] [address] [place] Name: DO Marcus Gretchen Elizabeth Position: Physician - Family Med Member Role: Primary Care Provider Address: Address: [address] [place] [address] [place] Name: MD Ruel, Sheri Fitzpatrick Position: Physician - Surgery Oncology Member Role: Lifetime Relationship Address: Address: [address] [place] [address] [place] [address] [place] Name: Lela Torre Position: HIS Supervisor_P Member Role: HIS Lifetime Care Team Related Persons Name: KARL MORRISON Address: home [address] [place] [address] [place] [phone] Name: LOPEZ CORDOVA Address: [place] Address: home [address] [facility], [place] [id number] Name: OMAYRA CORDOVAMara Fitzpatrick Address: [address], [place] [id number]
--- OUTSIDE RECORDS SUMMARY | 2024-03-23 14:51 | External Medical Summary | Continuity of Care Document ---
Author Name Unknown Organization [facility] Address [address] [place] [id number] Care Team Providers Care Software Developer Manager Name Role Phone Naomi Marcus Primary Care Physicia n [phone] [facility] [id number] Date(s): 11/02/23 - 11/02/23 [facility] [address] [place] [phone] Encounter Diagnosis Breast cancer in female(Discharge Diagnosis) - 11/02/23 Discharge Disposition: Home or Self Care Attending [...] mg tablet once a week Functional Status 11/02/23 Gait Steady Immunizations Given and Recorded Vaccine [...] 0, PRN: as needed for anxiety, Pharmacy: [facility] Start Date: 10/26/23 Status: Ordered Co Q-10 Start: 05/26/20 12:33:00 EDT, See Instructions, takes 2 capusles daily Start Date: 05/26/20 Status: Ordered Effexor 25 mg oral tablet Start: 08/31/23 10:55:00 EST, 1 tab, PO, qhs, Disp# 30 tab, Refills: 4, Pharmacy: [facility] Start Date: 08/31/23 Status: Ordered Emla 2.5%-2.5% topical cream Start: 03/09/23 12:34:00 EDT, 1 appl, topical, ONCE, Disp# 30 g, Refills: 0, Pharmacy: [facility] Start Date: 03/09/23 Status: Ordered Fish Oil Start: 02/03/10 8:51:58 EDT, 500 mg =, PO, Daily, Refills: 0, current medication from another provider Start Date: 02/03/10 Status: Ordered ibuprofen 600 mg oral tablet Start: 12/04/10 14:23:00, 1 tab, PO, qid, Disp# 50 tab, Refills: 1, PRN: as needed for pain, Pharmacy: [facility] Start Date: 12/04/10 Status: Ordered Lomotil 2.5 mg-0.025 mg oral tablet Start: 05/11/23 9:39:00 EDT, 1 tab, PO, bid, Disp# 30 tab, PRN: as needed for loose stool, Pharmacy: [facility] Start Date: 05/11/23 Status: Ordered loperamide 2 mg oral capsule Start: 10/26/23 14:49:00 EDT, 1 cap, PO, q6h, Disp# 30 cap, Refills: 1, Pharmacy: [facility] Start Date: 10/26/23 Status: Ordered [...] 1/2 tab as needed for palpitations., Pharmacy: [facility] Start Date: 02/16/23 Status: Ordered NAC Start: 12/13/22 14:23:00 EDT, NAC, See Instructions, 1 po daily Start Date: 12/13/22 Status: Ordered ondansetron 4 mg oral tablet Start: 07/25/23 12:16:00 EST, 1 tab, PO, bid, Disp# 50 tab, PRN: as needed for nausea/vomiting, Pharmacy: [facility] Start Date: 07/25/23 Status: Ordered Probiotic Formula Start: 09/13/16 9:20:00 EST, 1 cap, PO, Daily Start Date: 09/13/16 Status: Ordered Repatha SureClick 140 mg/mL subcutaneous solution Start: 05/26/21 13:59:00 EDT, subQ, [id number] Start Date: 05/26/21 Status: Ordered tamoxifen 10 mg oral tablet Start: 08/31/23 10:53:00 EST, 1 tab, PO, Daily, Disp# 60 tab, Refills: 4, Pharmacy: [facility] Start Date: 08/31/23 Status: Ordered Tylenol 500 [...] Active Vaginal atrophy Confirmed Active CAD in [place] artery Confirmed Active Cough Confirmed Active Diarrhea [...] appendix Confirmed Active Breast cancer Confirmed Active Xufm-Acek-Olfl syndrome Confirmed Active Need for prophylactic vaccination and inoculation against influenza Confirmed Active Right elbow pain Confirmed Active Palpitations Confirmed Active Medicare annual wellness visit, subsequent Confirmed Active Post-nasal drip Confirmed Active Resection of ascending colon, cecum and terminal ileum 3 Confirmed Active Sling procedure of bladder neck Confirmed Active SVT (supraventricular tachycardia) 4 Confirmed Active Frequent unifocal PVCs Confirmed Active 1Added per Telegraph Printer Mechanic [id number]-[id number] 02/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 4Added per Telegraph Printer Mechanic [id number]-JR-Uq 02/23/2023 Diagnosis Diagnosis Type Effective Dates Health Status Cl inical Service Informant Breast cancer in female Discharge Diagnosis 11/02/23 Non-Specified Procedures Procedure Date Related Diagnosis Body [...] 9 07/2014 Completed Holter monitor 10 07/09/14 [facility] ed Hysterectomy 2010 Completed Colonoscopy 11 07/16/10 [...] in 5-10 years 12Sling 13Right ring finger [id number] right 15Done 2019 Vital Signs Most recent to oldest [Reference Range]: 1 Patient Weight 69.7 kg (11/02/23 10:12 AM) Temperature [36.5-37.9 DegC] 36.1 DegC *LOW* (11/02/23 10:12 AM) Heart Rate 53 bpm (11/02/23 10:12 AM) Respiratory Rate 18 br/min (11/02/23 10:12 AM) Blood Pressure 108/50mmHg (11/02/23 10:12 AM) Mean Blood Pressure 65 mmHg (11/02/23 10:12 AM) Cuff Pulse Pressure 58 mmHg (11/02/23 10:12 AM) Social History Social History Type Response Tobacco Former smoker, Cigar ettes, 0.5 per day. 35 year(s). Started age 22 Years. Stopped age 57 Years. Smoking Status Former Smoker, quit > 1 yr Sex Female Patient Care team information Care Team Personnel Name: DO Martinez Alison L Position: Physician - Radiologist Member Role: Lifetime Relationship Address: Address: [address] [place] [address] Name: Matias Tomlin Kimberly Position: Pharmacist BCMA Member Role: Pharmacy - Lifetime Address: Address: [address] Name: DO Marcus Gretchen Elizabeth Position: Physician - Family Med Member Role: Primary Care Provider Address: Address: [address] [place] [address] [place] Name: MD Ruel, Sheri Fitzpatrick Position: Physician - Surgery Oncology Member Role: Lifetime Relationship Address: Address: [address] [place] [address] [place] [address] Name: Lela Torre Position: HIS Supervisor_P Member Role: HIS Lifetime Care Team Related Persons Name: KARL MORRISON Address: [place] [address] [place] [address] [place] [phone] Name: LOPEZ CORDOVA Address: [place] Address: home [address] [facility] [place] [id number] Name: LOPEZ CORDOVA Address: home [address] [facility], [place] [id number]
--- NOTE | 2024-03-23 15:04 | CT Scan Report ---
CT angio chest PE protocol CLINICAL HISTORY: PE TECHNIQUE: Multidetector row helical CT of the chest was performed with angiographic protocol. Corbin l and sagittal reformations were obtained. Coronal and sagittal MIPS were obtained from the axial wally a set and were submitted for review. Automated dose lowering techniques and/or adjustment according to patient size were utilized for this exam. CT DOSE: 355.45 mGy.cm Comparison: Comparison is made to chest radiograph 03/23/[address] 07/04/2023 FINDINGS: Lungs and pleura: Atelectasis versus scarring is seen in the dependent portions of the lungs. A cysti c lesion is seen in the right lung base measuring 43 x 21 mm. Pulmonary nodules include a 3 mm nodule in the right middle lobe (series 4 image 59) and a 3 mm nodule in the right middle lobe (image 71). Heart and pericardium: Cardiomegaly is seen with biatrial enlargement. Vessels: No evidence of pulmonary embolism. Mediastinum and alan: Unremarkable. Chest wall and lower neck: Unremarkable. Abdomen: A hiatal hernia is seen. Bones: Degenerative changes in the thoracic spine. IMPRESSION: 1. No acute abnormality and in particular no evidence of pulmonary embolus. 2. Right cystic lesion is seen. ACT 112: Negative or not required by law. Electronically signed by: Raffaele Aldana M.D. 03/23/2024 3:02 PM
[2024-03-23] MEDS: ONDANSETRON INJ 2 MG/ML 2 ML VIAL IV STA (15:31)
[2024-03-23] MEDS ORDERED: LORazepam 0.5 MG TAB PO PRN (15:58)
[2024-03-23] MEDS: PANTOprazole 40 MG in SYRINGE 0 ML IV ONE (16:06)
--- NOTE | 2024-03-23 16:19 | XCELERA ---
[id number] \\[facility]\ISCV_PDF_Reports\[id number]}___[id number]
[2024-03-23 16:49] VITALS: RESP 18
--- NOTE | 2024-03-23 17:03 | Electrocardiogram Report ---
Test Reason : Blood Pressure : */* mmHG Vent. Rate : 63 BPM Atrial Rate : 63 BPM P-R Int : 164 ms QRS Dur : 72 ms QT Int : 410 ms P-R-T Axes : 57 36 55 degrees QTcB Int : 419 ms Normal sinus rhythm Normal ECG When compared with ECG of 23-Mar-2024 12:10, No significant change was found Confirmed by Keith Benjamin ([id number]) on 03/23/2024 5:03:11 PM Referred By: REFERRED SELF Confirmed By: Keith Benjamin
[2024-03-23] MEDS: METOPROLOL SUCC 25MG EXT REL TAB PO SCH (20:09)
[2024-03-23] MEDS: TAMOXIFEN CITRATE 10 MG TABLET PO SCH (20:09)
[2024-03-23] MEDS: ENOXAPARIN INJ 40 MG/0.4 ML SYR SQ SCH (20:10)
[2024-03-24 05:06] LABS: Basophils # (auto) 0.03 K/uL (0.00-0.20); Basophils % (auto) 0.5 %; Eosinophils # (auto) 0.15 K/uL (0.00-0.50); Eosinophils % (auto) 2.4 %; Hematocrit (blood only) 37.5 % (37.0-47.0); Hemoglobin 12.7 g/dl (12.0-16.0); Immature Granulocytes # (auto) 0.01 K/uL (0.01-0.20); Immature Granulocytes % (auto) 0.2 %; Lymphocytes # (auto) 1.85 K/uL (1.20-3.40); Lymphocytes % (auto) 29.7 %; Mean Corpuscular Hemoglobin 31.9 pg (25.0-34.0); Mean Corpuscular Hgb Conc 33.9 g/dL (32.0-36.0); Mean Corpuscular Volume 94.2 fL (80.0-100.0); Monocytes # (auto) 0.52 K/uL (0.11-0.59); Monocytes % (auto) 8.4 %; Neutrophils # (auto) 3.66 K/uL (1.40-6.50); Neutrophils % (auto) 58.8 %; Platelet Count 193 K/uL (130-400); RDW Coefficient of Variation 12.6 % (11.5-14.5); RDW Standard Deviation 43.8 fL (36.4-46.3); Red Blood Count 3.98 M/uL (4.20-5.40); White Blood Count 6.22 K/ul (4.8-10.8)
[2024-03-24 05:24] LABS: Albumin Globulin Ratio 1.7 (0.9-2); BUN Creatinine Ratio 18.1 (10-20); Bilirubin,Total 0.5 mg/dl (0.2-1.0); Est GFR (African American) 98.3 ml/min; Est GFR (Non-African American) 84.9 ml/min; Globulin 2.4 gm/dl (2.5-4.0); Magnesium 2.1 mg/dl (1.7-2.4); Potassium 4.1 mmol/L (3.5-5.1); Total Protein 6.4 gm/dl (6.0-8.3)
[2024-03-24 05:33] LABS: Prothrombin Time 10.4 Seconds (9.0-12.0)
[2024-03-24] MEDS: VENLAFAXINE HCL 50 MG TAB PO SCH (07:28)
[2024-03-24 07:33] VITALS: BP 118/62; PULSE 70; TEMP 98; O2SAT 100
[2024-03-24] MEDS: ACETAMINOPHEN 325 MG TAB PO PRN (07:57)
--- NOTE | 2024-03-24 11:15 | XCELERA ---
[id number] \\[facility]\ISCV_PDF_Reports\[id number]}___[id number]
--- NOTE | 2024-03-24 12:55 | Discharge Summary ---
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 She was initially noted to be hypertensive on arrival 167/67 but was otherwise stable. Labs were significant 110 and initial high-sensitivity within normal limits. ECG shows normal sinus rhythm without acute ST segment or T wave changes. Chest x-ray was read as negative for acute findings. We are asked to admit the patient for ongoing cardiac workup as she has not had a stress test in many years. Prior to admission the patient was given 324 mg p.o. aspirin. Patient was seen in bed in no acute distress at time of exam with her bedside, history obtained from both. The patient explains that she just had her Mediport in the left upper chest removed on 03/19/2024. Starting this a.m. around 1030 she started to notice a substernal chest discomfort which she describes as a pressure sensation with radiation to the back. Symptoms last for approximately 15 minutes at a time and have been recurrent since 1030. She has also noticed some intermittent numbness/tingling in the left upper extremity symptoms began. Denies recent fever, chills, cough, vomiting, abdominal pain, dysuria/hematuria, diarrhea, lower extremity swelling, and recent trauma. Denies a significant past medical history herself but her father did at the age of 65 from a large [place]. When asked, she may have some chest discomfort when taking deep breaths. She also notes mild nausea during my exam discomfort which is currently a 3 out of 10. When asked, she has a hard time determining if she has had increased dyspnea on exertion or chest discomfort with her normal activities as she states she is still recovering from her recent lemus with cancer and is generally weak from this. We discussed CODE STATUS, she is a full code and want her and daughter to make medical decisions for her if she cannot make them herself. Please refer to Dr. Ordonez' attestation for any changes to treatment plan Principal Diagnosis Chest Pain Discharge Exam General: patient resting comfortably, NAD, non-toxic in appearance, answers questions appropriately. Skin: warm, dry, intact HEENT: NC/AT, anicteric sclera, conjunctiva without injection, moist mucus membranes. Heart: +S1/S2, regular, no m/r/g Lungs: equal air entry bilaterally, no rales/rhonchi/wheezes Abd: +BS, soft, NT/ND Ext: warm, no clubbing/cyanosis or edema Neuro: nonfocal, speech intact, no facial droop, moving all extremities. Discharge Data Allergies Allergy/AdvReac Type Severity Reaction Status Date / Time Penicillins Allergy Unknown . Verified 03/23/24 14:38 Sulfa (Sulfonamide Allergy Unknown . Verified 03/23/24 14:38 Antibiotics) ciprofloxacin [From Cipro] AdvReac Severe TENDONITIS Verified 03/23/24 14:38 Ohdlhkh-KSK-UjA Reductase AdvReac Severe MUSCLE Verified 03/23/24 14:38 Inhibitor CRAMPS [Ujpxmlc-Egm-Gjr Reductase Inhibitor] nitrofurantoin AdvReac Unknown Unknown Unverified 03/23/24 14:38 [From Macrobid] rosuvastatin [From Crestor] AdvReac Unknown Unknown Unverified 03/23/24 14:38 hans chemical Allergy Severe Anaphylaxis Uncoded 03/23/24 14:38 tape AdvReac Unknown Unknown Uncoded 03/23/24 14:38 zetia AdvReac Unknown Unknown Uncoded 03/23/24 14:38 Consultations 03/23/24 14:23 ED Decision to Admit Stat Ordered Studies 03/23/24 14:12 CT angio chest PE protocol Stat Laboratory Results WBC 6.22 K/ul (4.8-10.8) 03/24/24 04:16 RBC 3.98 M/uL (4.20-5.40) L 03/24/24 04:16 Hgb 12.7 g/dl (12.0-16.0) 03/24/24 04:16 Hct 37.5 % (37.0-47.0) 03/24/24 04:16 MCV 94.2 fL (80.0-100.0) 03/24/24 04:16 MCH 31.9 pg (25.0-34.0) 03/24/24 04:16 MCHC 33.9 g/dL (32.0-36.0) 03/24/24 04:16 RDW Std Deviation 43.8 fL (36.4-46.3) 03/24/24 04:16 RDW Coeff of Akiko 12.6 % (11.5-14.5) 03/24/24 04:16 Plt Count 193 K/uL (130-400) 03/24/24 04:16 MPV 9.0 fL (9.4-12.4) L 03/24/24 04:16 Immature Gran % (Auto) 0.2 % 03/24/24 04:16 Neut % (Auto) 58.8 % 03/24/24 04:16 Lymph % (Auto) 29.7 % 03/24/24 04:16 [place] % (Auto) 8.4 % 03/24/24 04:16 Eos % (Auto) 2.4 % 03/24/24 04:16 Baso % (Auto) 0.5 % 03/24/24 04:16 Neut # (Auto) 3.66 K/uL (1.40-6.50) 03/24/24 04:16 Lymph # (Auto) 1.85 K/uL (1.20-3.40) 03/24/24 04:16 [place] # (Auto) 0.52 K/uL (0.11-0.59) 03/24/24 04:16 Eos # (Auto) 0.15 K/uL (0.00-0.50) 03/24/24 04:16 Baso # (Auto) 0.03 K/uL (0.00-0.20) 03/24/24 04:16 Immature Gran # (Auto) 0.01 K/uL (0.01-0.20) 03/24/24 04:16 PT 10.4 Seconds (9.0-12.0) 03/24/24 04:16 INR 1.0 (0.9-1.1) 03/24/24 04:16 D-Dimer 500 ug/L FEU (0-500) 03/23/24 12:35 Sodium 138 mmol/L (136-145) 03/24/24 04:16 Potassium 4.1 mmol/L (3.5-5.1) 03/24/24 04:16 Chloride 105 mmol/L (98-107) 03/24/24 04:16 Carbon Dioxide 27 mmol/L (21-32) 03/24/24 04:16 Anion Gap 6 (3-11) 03/24/24 04:16 BUN 13 mg/dl (6-23) 03/24/24 04:16 Creatinine 0.72 mg/dl (0.6-1.2) 03/24/24 04:16 Est Cr Clr Drug Dosing 68.0 ml/min 03/24/24 04:16 Est GFR ( Amer) 98.3 ml/min 03/24/24 04:16 Est GFR (Non-Af Amer) 84.9 ml/min 03/24/24 04:16 BUN/Creatinine Ratio 18.1 (10-20) 03/24/24 04:16 Glucose 87 mg/dl (70-99(Fasting)) 03/24/24 04:16 Calcium 9.0 mg/dl (8.6-10.3) 03/24/24 04:16 Magnesium 2.1 mg/dl (1.7-2.4) 03/24/24 04:16 Total Bilirubin 0.5 mg/dl (0.2-1.0) 03/24/24 04:16 AST 22 U/L (13-39) 03/24/24 04:16 ALT 18 U/L (7-52) 03/24/24 04:16 Alkaline Phosphatase 44 U/L (34-104) 03/24/24 04:16 Troponin I High Sens 5.2 pg/ml (0-14) 03/24/24 11:34 B-Natriuretic Peptide 72 pg/ml (0-100) 03/23/24 12:25 Total Protein 6.4 gm/dl (6.0-8.3) 03/24/24 04:16 Albumin 4.0 gm/dl (3.4-5.0) 03/24/24 04:16 Globulin 2.4 gm/dl (2.5-4.0) L 03/24/24 04:16 Albumin/Globulin Ratio 1.7 (0.9-2) 03/24/24 04:16 Lipase 39 U/L (11-82) 03/23/24 12:35 Impressions Chest X-Ray 03/23/24 12:18 XR chest 1V portable CLINICAL HISTORY: Chest pain, nonspecific TECHNIQUE: Single frontal radiograph of the chest was obtained. Comparison: None available at the time of this dictation. FINDINGS: No lines and tubes are seen. Cardiomegaly is noted. The aortic arch is calcified. The lungs are clear. No evidence of pleural effusion or pneumothorax. IMPRESSION: No acute chest disease. ACT 112: Negative or not required by law. Electronically signed by: Raffaele Aldana M.D. 03/23/2024 12:25 PM Chest CTA 03/23/24 14:12 CT angio chest PE protocol CLINICAL HISTORY: PE TECHNIQUE: Multidetector row helical CT of the chest was performed with angiographic protocol. Coronal and sagittal reformations were obtained. Coronal and sagittal MIPS were obtained from the axial data set and were submitted for review. Automated dose lowering techniques and/or adjustment according to patient size were utilized for this exam. CT DOSE: 355.45 mGy.cm Comparison: Comparison is made to chest radiograph 03/23/[address] 07/04/2023 FINDINGS: Lungs and pleura: Atelectasis versus scarring is seen in the dependent portions of the lungs. A cystic lesion is seen in the right lung base measuring 43 x 21 mm. Pulmonary nodules include a 3 mm nodule in the right middle lobe (series 4 image 59) and a 3 mm nodule in the right middle lobe (image 71). Heart and pericardium: Cardiomegaly is seen with biatrial enlargement. Vessels: No evidence of pulmonary embolism. Mediastinum and alan: Unremarkable. Chest wall and lower neck: Unremarkable. Abdomen: A hiatal hernia is seen. Bones: Degenerative changes in the thoracic spine. IMPRESSION: 1. No acute abnormality and in particular no evidence of pulmonary embolus. 2. Right cystic lesion is seen. ACT 112: Negative or not required by law. Electronically signed by: Raffaele Aldana M.D. 03/23/2024 3:02 PM Hospital Course (1) Chest pain: (2) Malignant neoplasm of central portion of right breast in female, estrogen receptor positive: 69 y/o F with h/o breast ca here with chest pain Chest pain CTA of chest showed no acute PE, patient has two 3mm pulmonary nodules in RML and a cystic lung lesion measuring [id number] - Echo 03/23/24 Mild to moderate MR, EF of 60-65% - Stress echo - sinus rhythm throughout, no ectopy during exercise but sporadic PVCs with couplets and one triplet during early recovery Chest discomfort has resolved over short and damage clerk 03/24 prior to discharge. -Suspect chest pain likely MSK. - Continue metoprolol succinate ER 12.5 mg PO home medications -takes for PVC 3mm lung nodule on CT chest - - 3mm pulmonary nodules in RML and a cystic lung lesion measuring [id number] - No further f/u would be recommended considering the size. Breast cancer - Patient recently completed her courses of chemotherapy, radiation therapy, and immunotherapy Had her Mediport removed on 03/19/2024 Follow-up with heme-onc and rad onc outpatient after discharge Total Time Total Time Spent Total Time Spent (In Minutes): See attending attestation Discharge Plan Discharge Items Patient Disposition: Home - Self-Care Reason For Visit: CHEST PAIN Discharge Diagnosis: Chest Pain - Ruled out acute coronary syndrome. Negative Stress Echo Pain MSK related. Activity: Resume your previous activity Activity Comment: As tolerated Non-emergency contact: Primary Care Provider Call non-emergency contact if: you have any medication questions, your symptoms worsen and your pain is worsening Follow-up/Referrals: Naomi Marcus, [Primary Care Provider] - (PLEASE CALL YOUR PRIMARY CARE PROVIDER TO SCHEDULE A HOSPITAL DISCHARGE FOLLOW-UP APPOINTMENT WITHIN 7-10 DAYS) Diet: Regular Addtl Attending Provider Instructions: Please follow up with family physician in one to two weeks. Pending Studies at Discharge: No Stand-Alone Forms: [employer] Smoking Cessation Medications and DC Order Prescriptions: Continued cholecalciferol (vitamin D3) 10 mcg (400 unit) capsule 10 mcg PO QPM diphenoxylate-atropine [Lomotil] 2.5-0.025 mg tablet 1 tab PO DAILY PRN (Reason: Diarrhea) venlafaxine 25 mg tablet 25 mg PO DAILY ondansetron HCl 4 mg tablet 4 mg PO Q6H PROBIOTIC PRODUCT (PROBIOTIC) 1 CAP capsule 1 cap PO DAILY Qty: 0 aspirin 81 mg tablet,delayed release (DR/EC) 81 mg PO Q OTHER DAY Rx Instructions: Takes in pm metoprolol succinate 25 mg tablet extended release 24 hr 12.5 mg PO QPM lorazepam 0.5 mg tablet 0.5 mg PO DAILY PRN (Reason: Anxiety) acetaminophen [Tylenol Extra Strength] 500 mg tablet 1,000 mg PO Q6H PRN (Reason: Pain) Repatha SureClick 140 mg/mL pen injector 140 mg subcut .Q2 weeks loratadine [Allergy Relief (loratadine)] 10 mg tablet 10 mg PO DAILY PRN (Reason: allergies) omega-3 fatty acids 1,000 mg Capsule 1,000 mg PO QPM tamoxifen 10 mg tablet 10 mg PO Q OTHER DAY Rx Instructions: Takes in pm tamoxifen 10 mg tablet 20 mg PO Q OTHER DAY Rx Instructions: Takes in pm. Is due today. ibuprofen 200 mg Tablet 400 mg PO Q6H PRN (Reason: Pain) Discharge Orders: Discharge Order (Routine); Ordered 03/24/24 Ordered By: Kate Kidd Admission Data Admit Date/Time: 03/23/24 14:02 Attending Provider: Kate Kidd Admit Provider: Pepe Ordonez Primary Care Provider: Naomi Marcus Other Providers: Pepe Ordonez Other Interventions: Discharge Summary Assessment (RN) Last Done: 03/24/24 11:15 Supervising Physician Co-Signing Physician Notes Attending Physician Supervision Note: I independently interviewed and examined the patient and verified the [place]ill[place] h istory and physical, reviewed labs and image studies and agree with findings and care plan noted above. Resident Activity Tracking Resident Involvement: Resident Care Provided Care Provided: Adult Hospital Medicine
[2024-03-24] MEDS ORDERED: ASPIRIN 81 MG ECTAB PO SCH (21:00)
[2024-03-24] MEDS ORDERED: TAMOXIFEN CITRATE 10 MG TABLET PO SCH (21:00)
== END 2024-03-24 12:52 | disposition home or self-care (01) ==
LOC: 2W 12:02 → ED 12:02 → SUATTDRO 14:02 → 2W 15:34